=== PATIENT | female | born 1945 | race Caucasian/White ===

== ENCOUNTER 2024-12-28 16:40 | Inpatient (IN) | payer MEDICARE, BC, SELFPAY ==
[2024-12-28] VITALS (7 sets, daily range): BP systolic 143–173; BP diastolic 86–105; PULSE 73–88; RESP 16–18; TEMP 36.4–36.8; O2SAT 96–98; BMI 22.9; BMI 25.3
[2024-12-28 17:23] LABS: Appearance Urine Clear (Clear); Bilirubin Urine Negative (Negative); Blood Urine Trace-intact (Negative); Color Urine Yellow (Yellow); Glucose Urine Negative (Negative); Ketones Urine Negative (Negative); Leukocyte Esterase Urine Negative (Negative); Nitrite Urine Negative (Negative); Protein Urine Negative (Negative); Urobilinogen Urine 0.2 (0.2-1.0)
--- NOTE | 2024-12-28 17:32 | ED_ITS ---
HPI - Chest Pain General Date Seen: 12/28/24 Chief Complaint: Hypertension Stated Complaint: BP 195/121 Time Seen by Provider: 12/28/24 17:24 History of Present Illness HPI narrative: 50-year-old female who is a resident at an assisted living. He this morning at 10:00 a.m. she noted feeling headache, dizzy, lightheaded,. She is also weaker than normal today and normally walks with a walker but today is requiring wheelchair She has no previous records in the [place] system does have records through [facility]. She has a past medical history including hypertension, right heart enlargement, or atrial septal deflect with surgery in 2010, carotid pseudoaneurysm, hypothyroidism, osteoporosis, osteoarthritis, the for her anxiety. Medication list include: Lisinopril 10 mg daily metoprolol 25 mg b.i.d. The Remeron Vitamin B Levothyroxine Fluticasone nasal spray Fish oil Benadryl/acetaminophen Diclofenac gel cinnamon Cranberry Calcium carbonate aspirin 81 mg Fosamax Tylenol She presents to the ER today with her daughter. They report that this morning she just started to feel unwell. She became a little bit dizzy, a little bit nauseous a little bit unsteady. She describes her dizziness is somewhat spinning but not exactly vertigo. Along with this she developed a generalized headache. No double vision. No slurred speech. No focal numbness or weakness in her arms or legs. She did not have any chest pain. No palpitations. No abdominal pain. She was nauseous but did not vomit. No diarrhea. Symptoms persisted through the morning. This afternoon she did have 1 episode of small volume emesis (nonbloody) and 1 episode of watery diarrhea. No new abdominal pain. She would just continue to feel somewhat off balance and dizzy. She took some Tylenol for headache which made it somewhat better. Her care providers at her assisted-living measure her blood pressure and it was quite elevated in the range of 190-200/120. They were sent to the ER today after a phone call with the alignment triage nurse Related Data Home Medications ?Medication ?Instructions ?Recorded ?Confirmed alendronate 35 mg tablet 35 mg PO QWEEK 12/28/24 12/28/24 aspirin 81 mg tablet,delayed 81 mg PO DAILY 12/28/24 12/28/24 release (Adult Low Dose Aspirin) fluticasone furoate 50 1 inh inhalation PRN 12/28/24 mcg/actuation blister powder for inhalation levothyroxine 88 mcg tablet 88 mcg PO DAILY 12/28/24 12/28/24 lisinopril 10 mg tablet 10 mg PO DAILY 12/28/24 12/28/24 metoprolol tartrate 25 mg tablet 25 mg PO BID 12/28/24 12/28/24 mirtazapine 15 mg tablet 15 mg PO QHS 12/28/24 12/28/24 Allergies Allergy/AdvReac Type Severity Reaction Status Date / Time nitrofurantoin (From Allergy Intermediate Hives Verified 12/28/24 17:00 Macrobid) [facility] Medical History (Updated 12/28/24 @ 21:04 by Jairo Canales MD) Right ventricular enlargement ?I51.7 - Cardiomegaly (ICD-10) Coronary artery disease ?I25.10 - Atherosclerotic heart disease of [place] coronary artery without angina pectoris (ICD-10) Hydrocephalus ?G91.9 - Hydrocephalus, unspecified (ICD-10) 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 - Aneurysm of carotid artery (ICD-10) Osteoarthritis ?M19.90 - Unspecified osteoarthritis, unspecified site (ICD-10) Osteoporosis ?M81.0 - Age-related osteoporosis without current pathological fracture (ICD- 10) Insomnia ?G47.00 - Insomnia, unspecified (ICD-10) Anxiety ?F41.9 - Anxiety disorder, unspecified (ICD-10) Hypothyroidism ?E03.9 - Hypothyroidism, unspecified (ICD-10) Hypertension ?I10 - Essential (primary) hypertension (ICD-10) Surgical History (Updated 12/28/24 @ 20:54 by Jairo Canales MD) H/O abdominal hysterectomy ?Z90.710 - Acquired absence of both cervix and uterus (ICD-10) S/P device closure of atrial septal defect ?Z87.74 - Personal history of (corrected) congenital malformations of heart and circulatory system (ICD-10) Social History (Updated 12/28/24 @ 21:07 by Jairo Canales MD) What is your current living situation?: I presently have a place to live Problems where you live: no known problems Problems where you live details: no known problems In the past 12 months, utilities in danger of being shut off: no In past 12 months, lack of transportation kept you from medical appts, meetings, work, or getting things needed for daily living: no In the past 12 mos, have been you worried that your food would run out before you had money to buy more?: never true In the past 12 mos, the food you bought just didn't last and you didn't have money to buy more?: never true Smoking Status: Former smoker What tobacco products do you use: cigarettes Years smoked: 1 Smoking quit date/years: >15 years ago Second hand tobacco smoke exposure: No How often do you have a drink containing alcohol: 4 or more times a week Alcohol type: wine Alcohol type details: pt reports half a glass of white wine with dinner How many standard drinks containing alcohol do you have on a typical day: 1 or 2 How often do you have six or more drinks on one occasion: Never AUDIT-C Alcohol total score: 4 Non-prescribed substance use: denies use Caffeine: No How often does anyone, including family, friends and others, physically hurt you : never How often does anyone, including family, friends and others, insult or talk down to you: never How often does anyone, including family, friends and others, threaten you with harm: never How often does anyone, including family, friends and others, scream or curse at you: never service: No Exam Narrative Exam Narrative: Constitutional: Appears well-developed and well-nourished. Alert. Conversant. Non toxic. Very polite HENT: Head: Atraumatic. Nose: Nose normal. Mouth/Throat: Oral mucosa is clear and moist. no trismus. Pharynx normal. Tonsils symmetric. No tonsillar enlargement, erythema, or exudate. Eyes: Conjunctivae normal. EOM normal. Pupils equal, round, and reactive to light. No scleral icterus. No nystagmus Neck: Normal range of motion. Neck supple. No tracheal deviation present. No JVD Cardiovascular: Normal rate, regular rhythm. No gallop. No friction rub. No murmur heard. Symmetric radial artery pulses Pulmonary/Chest: Effort normal. No stridor. No respiratory distress. No wheezes. No rales. No rhonchi . No tenderness. Abdominal: Soft. Bowel sounds normal. No distension. No mass. No tenderness. No rebound. No guarding. No CVA tenderness. No pulsatile mass Musculoskeletal: RUE: Normal range of motion. No tenderness. No deformity LUE: Normal range of motion. No tenderness. No deformity RLE: Normal range of motion. No edema. No tenderness. No deformity LLE: Normal range of motion. No edema. No tenderness. No deformity Neurological: Mental status normal. Attention normal. Alert and oriented x3. GCS 15. Memory normal. Speech fluent. Cognition normal. Cranial Nerves intact II-XII except I did not formally test gag or visual acuity. EOMI. Palate elevates symmetrically and tongue protrudes in the midline. Strength: 5/5 trapezius on the right and left 5/5 deltoid on the right and left 5/5 biceps on the right and left 5/5 triceps on the right and left 5/5 wheel inspector on the right and left 5/5 thumb opposition on the right and left 5/5 finger abduction on the right and left 5/5 hip flexors (L3) on the right and left 5/5 quadriceps (L4) on the right and left 5/5 tibialis anterior on the right and left 5/5 EHL (L5) on the right and left 5/5 gastrocnemius (S1) on the right and left 5/5 hamstring on the right and left Sensation intact to light touch in both upper extremities (C4-T1) Sensation intact to light touch in Both lower extremities (L4-S1). Finger to nose and coordination normal. She is able to get out of bed and stand the bedside with assistance of me for balance. She is able take 1 or 2 steps. No footdrop. No focal numbness or weakness. She just feeling very weak and a little bit unsteady. She is not able to pass a ambulation trial. she is too unsteady to attempt Romberg. Skin: Skin is warm and dry. No rash noted. No pallor. Normal capillary refill. Psychiatric: Normal mood. Normal affect. Const Vital Signs, click to edit/add: Vital Signs - 24 hr 12/28/24 17:00 12/28/24 17:43 12/28/24 18:00 Temperature 98 F Pulse Rate [Pulse Oximeter] 88 73 Respiratory Rate 18 16 Blood Pressure [Right Upper Arm] 173/97 H 161/105 H 146/88 H Pulse Oximetry 97 96 Oxygen Delivery Method Room Air Room Air 12/28/24 19:00 Temperature Pulse Rate [Pulse Oximeter] 78 Respiratory Rate 18 Blood Pressure [Right Upper Arm] 143/86 H Pulse Oximetry 96 Oxygen Delivery Method Room Air Course Course ED Course: Recheck-blood pressure is come down to about 143/82 without pharmacologic treatment. She has received Zofran for nausea and that is improved. Tylenol for headache and that is improved. She continues to feel a little bit unsteady and weak. Still not really able to ambulate. She was able to ride in a wheelchair to the bathroom and transfer from the wheelchair to the toilet and back. She was not able to ambulate in the hallway. Vital Signs Vital signs: Initial Vital Signs Temperature 98 F 12/28/24 17:00 Temperature Source Temporal Artery Scan 12/28/24 17:00 Pulse Rate 88 12/28/24 17:00 Respiratory Rate 18 12/28/24 17:00 Blood Pressure 173/97 H 12/28/24 17:00 Blood Pressure Mean 122 H 12/28/24 17:00 Pulse Oximetry 97 12/28/24 17:00 Oxygen Delivery Method Room Air 12/28/24 17:00 Vital Signs Temperature 98 F 12/28/24 17:00 Pulse Rate 88 12/28/24 17:00 Respiratory Rate 18 12/28/24 17:00 Blood Pressure 173/97 H 12/28/24 17:00 Pulse Oximetry 97 12/28/24 17:00 Oxygen Delivery Method Room Air 12/28/24 17:00 Temperature 97.5 F L 12/28/24 22:30 Pulse Rate 74 12/28/24 22:52 Respiratory Rate 16 12/28/24 22:30 Blood Pressure 146/91 H 12/28/24 22:30 Pulse Oximetry 98 12/28/24 22:30 Oxygen Delivery Method Room Air 12/28/24 22:30 Medications Administered Medications: Generic Name Dose Route Start Last Admin Trade Name Freq PRN Reason Stop Dose Admin Acetaminophen 650 mg 12/28/24 20:32 12/28/24 22:35 Acetaminophen 325 Mg Tablet PO 650 mg Q4H PRN Administration Metoprolol Tartrate 25 mg 12/28/24 21:00 12/28/24 22:09 Metoprolol Tartrate 25 Mg Tablet PO Not Given BID ROSAURA Mirtazapine 15 mg 12/28/24 20:45 12/28/24 22:13 Mirtazapine 15 Mg Tablet PO 15 mg HS ROSAURA Administration Sodium Chloride 5 ml 12/28/24 21:00 12/28/24 22:14 Sodium Chloride 0.9 % (Flush) 10 Ml Syringe IVF 5 ml BID ROSAURA Administration Discontinued Medications Generic Name Dose Route Start Last Admin Trade Name Tony PRN Reason Stop Dose Admin Sodium Chloride 1,000 mls @ 1,000 mls/hr 12/28/24 18:00 12/28/24 20:10 0.9 % Sodium Chloride 1000 Ml IV 12/28/24 18:59 Infused .Q1H ROSAURA Infusion Metoprolol Tartrate 25 mg 12/28/24 19:53 12/28/24 20:13 Metoprolol Tartrate 25 Mg Tablet PO 12/28/24 19:54 25 mg ONCE ONE Administration Ondansetron HCl 4 mg 12/28/24 17:56 12/28/24 19:33 Ondansetron Odt 4 Mg Tab PO 12/28/24 17:57 Not Given ONCE ONE Ondansetron HCl 4 mg 12/28/24 19:23 12/28/24 19:32 Ondansetron 2 Mg/Ml Inj IVP 12/28/24 19:24 4 mg ONCE ONE Administration MDM - Chest Pain MDM Narrative Medical decision making narrative: This is a very pleasant 79-year-old female brought to the ER today from her assisted living by her daughter with concern for dizziness, nausea, headache, 1 episode of vomiting and 1 episode of diarrhea, as well as markedly elevated blood pressure readings at home. In terms of her blood pressure she does have a known history of hypertension and is on metoprolol and lisinopril. She has never had similar readings as today. Blood pressure actually came down quite a bit while she was here in the ER. At this point no clear evidence for an acute hypertensive emergency requiring immediate blood pressure management. We will give her her normal home meds this evening. Workup in the ER so far is reassuring. No evidence for CHF, acute coronary syndrome, myocardial ischemia, or acute renal failure. Head CT scan is negative for any intracranial hemorrhage. With her somewhat nonspecific but fairly persistent dizziness, I am concerned about potentially a posterior fossa ischemic stroke. Sensitivity of noncontrast head CT would be fairly low for that. Patient will need MRI. MRI is not available here in the ER on the weekend. Therefore we will admit her to the hospital for plans for MRI tomorrow. With potential for a subacute acute ischemic stroke happening, we do not want her blood pressure run too low. Therefore we will administer metoprolol here tonight but hold off on lisinopril. She is not anemic. Sodium and electrolytes are normal. Kidney function normal. Blood sugar normal. Urinalysis shows hematuria. Abdomen/pelvis CT is obtained and is negative for any sign of kidney stone or other clear explanation for hematuria. CT also negative for other intra-abdominal pathology such as obstruction, perforation, free air, colitis, diverticulitis. Discussed the hematuria with the patient and her daughter in the will follow-up outpatient with her PCP for re-evaluation. Discussed the patient's presenting dizziness and other symptoms with our hospitalist, Dr. Canales. We discussed workup so far. He agrees with plans to admit for further workup. Lab Data Labs: Lab Results 12/28/24 12/28/24 12/28/24 Range/Units 17:17 18:45 19:55 WBC 4.55 (4.50-11.00) K/uL RBC 3.97 L (4.00-5.20) m/uL Hgb 11.0 L (12.0-16.0) gm/dL Hct 33.6 (33.0-51.0) % MCV 85 (80-100) fL MCH 28 (26-34) pg MCHC 33 (32-36) gm/dL RDW Coeff of [place] 14.8 (11.5-15.5) % Plt Count 302 (140-440) K/uL Neut % (Auto) 67.3 (42.0-72.0) % Lymph % (Auto) 23.5 (20-44) % [place] % (Auto) 7.5 (0.0-11.0) % Eos % (Auto) 1.3 (0.0-7.0) % Baso % (Auto) 0.4 (0.0-3.0) % Neut # (Auto) 3.06 (1.7-7.0) K/uL Lymph # (Auto) 1.07 (0.90-2.90) K/uL [place] # (Auto) 0.30 (0.00-0.90) K/UL Eos # (Auto) 0.06 (0.00-0.50) K/uL Baso # (Auto) 0.02 (0.00-0.30) K/uL Abs Immat Gran (auto) 0.00 (0.00-0.30) K/uL Imm/Tot Granulo (auto) 0.0 % Sodium 128 L (135-149) mmol/L Potassium 4.1 (3.6-5.1) mmol/L Chloride 96 (96-114) mmol/L Carbon Dioxide 22 (20-32) mmol/L Anion Gap 10 (7-15) mEq/L BUN 9 (7-30) mg/dL Creatinine 0.6 (0.5-1.5) mg/dL Estimated Creat Clear 35.49 Estimated GFR 91 ml/min Glucose 109 (60-115) mg/dL Lactate 1.0 (0.5-1.9) mmol/L Calcium 9.0 (8.4-10.6) mg/dL Troponin I < 0.01 L (0.01-0.04) ng/mL NT-Pro-B Natriuret Pep 259 pg/mL TSH 0.627 (0.270-4.20) uIU/mL Urine Color Yellow (Yellow) Urine Appearance Clear (Clear) Urine pH 7.0 (5.0-8.5) Ur Specific [place] 1.020 (1.000-1.030) Urine Protein Negative (Negative) Urine Glucose (UA) Negative (Negative) Urine Ketones Negative (Negative) Urine Blood Trace-intact A (Negative) Urine Nitrite Negative (Negative) Urine Bilirubin Negative (Negative) Urine Urobilinogen 0.2 (0.2-1.0) Ur Leukocyte Esterase Negative (Negative) Urine RBC 10-25 A (0-2) Urine WBC 0-2 (0-5) Ur Squamous Epith Cells None (None-Few) Urine Bacteria None (None) SARS-CoV-2 (PCR) Negative SARS-CoV-2 (Negative) Influenza Type A (PCR) Negative PCR FLU A (Negative) Influenza Type B (PCR) Negative PCR FLU B (Negative) RSV (PCR) Negative PCR RSV (Negative) Imaging Data CT scan - abdomen: Attestation: I have reviewed the pertinent imaging results. Radiologist's impression: IMPRESSION: No acute intra-abdominal/pelvic abnormality, including renal stones or obstructive uropathy. Colonic diverticulosis without diverticulitis. CT scan - head: Attestation: I have reviewed the pertinent imaging results. Radiologist's impression: IMPRESSION: 1. No acute intracranial abnormality. 2. Moderate generalized cerebral volume loss. Chronic deep white matter small vessel ischemic changes Chest x-ray: Attestation: I have reviewed the pertinent imaging results. Radiologist's impression: IMPRESSION: No acute or significant findings. ECG Data Attestation: I personally reviewed and interpreted this ECG as follows: Interpretation: Normal sinus rhythm with PACs Rate: 78 CT: 170 QRS axis: Low voltage QRS. Normal axis. No pathologic Q-waves. ST segment/T wave: No ST segment elevation or depression QTc: 433 Discharge Plan Discharge Clinical Impression: Dizziness, Nausea, High blood pressure Patient Disposition: Admitted As Observation
[2024-12-28 17:34] LABS: WBC Urine 0-2 (0-5)
--- NOTE | 2024-12-28 17:56 | CRLHL7_ITS ---
For Patients: As a result of the Century Cures Act, medical imaging exams and procedure reports are released immediately into your electronic medical record. You may view this report before your referring provider. If you have questions, please contact your health care provider. INDICATION: Dizziness, hypertension TECHNIQUE: Chest 2 views. COMPARISON: None. FINDINGS: Cardiovascular and mediastinum: Heart size and vasculature are normal in caliber and appearance. Probable atrial septal occluded device. Lungs and pleural spaces: Lungs are clear. No sign of infiltrate or mass. No sign of pleural effusion. No pneumothorax. Bones and soft tissues: Decreased osseous mineralization. Excessive kyphotic curvature. No significant findings. IMPRESSION: No acute or significant findings. Dictated by Marty Buck MD @ 12/28/2024 6:31:28 PM (Electronically Signed)
--- NOTE | 2024-12-28 17:56 | CRLHL7_ITS ---
For Patients: As a result of the Century Cures Act, medical imaging exams and procedure reports are released immediately into your electronic medical record. You may view this report before your referring provider. If you have questions, please contact your health care provider. INDICATION: Headache and nausea. COMPARISON: None. TECHNIQUE: Noncontrast CT head. FINDINGS: Moderate generalized volume loss. Patchy low-attenuation change within the white matter consistent with chronic deep white matter small vessel ischemic changes. No acute intracranial hemorrhage, acute infarct, mass effect, or fracture. Compensatory dilatation ventricular system. Normal calvarium and skull base. Visualized paranasal sinuses mastoid air cells are clear. Normal orbits bilaterally. IMPRESSION: 1. No acute intracranial abnormality. 2. Moderate generalized cerebral volume loss. Chronic deep white matter small vessel ischemic changes Please note that all CT scans at this facility use dose modulation, iterative reconstruction, and/or weight-based dosing when appropriate to reduce radiation dose to as low as reasonably achievable. Dictated by David Garner MD @ 12/28/2024 6:27:38 PM (Electronically Signed)
--- NOTE | 2024-12-28 17:58 | CRLHL7_ITS ---
For Patients: As a result of the Century Cures Act, medical imaging exams and procedure reports are released immediately into your electronic medical record. You may view this report before your referring provider. If you have questions, please contact your health care provider. INDICATION: Dizziness, hematuria. TECHNIQUE: CT abdomen and pelvis without contrast. COMPARISON: None. FINDINGS: Lower chest: Scattered atelectasis. Liver: Normal in size and attenuation. No suspicious masses. Gallbladder and bile ducts: No stones or inflammation. No biliary dilatation. Pancreas: Unremarkable. No mass or inflammation. Spleen: Normal in size. No masses. Adrenal glands: Normal in size. No nodules. Kidneys: Bilateral extrarenal pelvis. Normal in size. No suspicious masses, stones, or hydronephrosis. GI tract: Colonic diverticulosis without diverticulitis.. Normal in caliber. No sign of mass or inflammation. Normal appendix. Vasculature: Aortoiliac arterial calcifications. Abdominal aorta is normal in caliber. Lymph nodes: No lymphadenopathy. Peritoneum/Abdominal Wall: Unremarkable. No sign of mass or infiltration. No free air or significant free fluid. Pelvis: Hysterectomy. No pelvic masses. Bones: Unremarkable for age. IMPRESSION: No acute intra-abdominal/pelvic abnormality, including renal stones or obstructive uropathy. Colonic diverticulosis without diverticulitis. Please note that all CT scans at this facility use dose modulation, iterative reconstruction, and/or weight-based dosing when appropriate to reduce radiation dose to as low as reasonably achievable. Dictated by Marty Buck MD @ 12/28/2024 6:30:00 PM (Electronically Signed)
[2024-12-28] MEDS: 0.9 % SODIUM CHLORIDE 1000 ml 1,000 ML IV (18:44)
[2024-12-28 18:54] LABS: Basophils Absolute Auto 0.02 K/uL (0.00-0.30); Basophils Percent Auto 0.4 % (0.0-3.0); Eosinophils Absolute Auto 0.06 K/uL (0.00-0.50); Eosinophils Percent Auto 1.3 % (0.0-7.0); Hematocrit 33.6 % (33.0-51.0); Lymphocytes Absolute Auto 1.07 K/uL (0.90-2.90); Lymphocytes Percent Auto 23.5 % (20-44); Mean Corpuscular HGB Conc 33 gm/dL (32-36); Mean Corpuscular Hemoglobin 28 pg (26-34); Mean Corpuscular Volume 85 fL (80-100); Monocytes Percent Auto 7.5 % (0.0-11.0); Neutrophils Absolute Auto 3.06 K/uL (1.7-7.0); Neutrophils Percent Auto 67.3 % (42.0-72.0); Platelet Count* 302 K/uL (140-440); RDW Coefficient of Variation % 14.8 % (11.5-15.5); Red Blood Count 3.97 m/uL (4.00-5.20); Slide Review Reflex No; White Blood Count* 4.55 K/uL (4.50-11.00)
[2024-12-28 19:09] LABS: Chloride* 96 mmol/L (96-114)
[2024-12-28 19:10] LABS: Potassium* 4.1 mmol/L (3.6-5.1); Sodium* 128 mmol/L (135-149)
[2024-12-28 19:12] LABS: Creatinine* 0.6 mg/dL (0.5-1.5); Est. Creatinine Clearance* 35.49; Estimated Glomerular Filt Rate 91 ml/min
[2024-12-28 19:13] LABS: Anion Gap 10 mEq/L (7-15); Blood Urea Nitrogen* 9 mg/dL (7-30); Carbon Dioxide* 22 mmol/L (20-32); Glucose* 109 mg/dL (60-115)
--- OUTSIDE RECORDS SUMMARY | 2024-12-28 19:19 | XMS_ITS | Clinical Summary ---
Author Organization [facility] Address [address] [place] [address]. [place] [address] Care Team Providers Care Online Marketing Analyst Name Role Phone Zee Bentley MD Primary Care Provider + Allergies Active Allergy Reactions Criticality Noted Date Comments Nitrofurantoin Low 05/30/2021 Other reaction(s): Muscle Weakness Sulfamethoxazole-Trimethoprim 2015 Medications aspirin 325 MG tablet Take 325 mg by mouth as needed for moderate pain Active aspirin 81 MG EC tablet Take 81 mg by mouth Take two to three times a week 2 Active levothyroxine (SYNTHROID/LEVO THROID) 88 MCG tablet Take 88 mcg by mouth daily Active metoprolol tartrate (LOPRESSOR) 25 MG tablet Take 25 mg by mouth 2 times daily Active fluticasone (FLONASE) 50 MCG/ACT nasal spray [place] 1 spray into both nostrils 2 times daily as needed for rhinitis or allergies Active ibuprofen (ADVIL/MOTRIN) 200 MG tablet Take 200 mg by mouth daily as needed for mild pain Active Cyanocobalamin (VITAMIN B 12 PO) Take 1 tablet by mouth daily Active CALCIUM PO Take 1,200 mg by mouth daily Active [place]-3 Fatty Acids (OMEGA 3 PO) Take 1 capsule by mouth daily Active Cholecalciferol (VITAMIN D PO) Take 1 tablet by mouth daily Active CINNAMON PO Take 1 tablet by mouth daily Active CARBOXYMETHYLCE LLULOSE SODIUM OP Place 1 drop into both eyes as needed Active meclizine (ANTIVERT) 25 MG tabletIndicatio ns:Vertigo Take 1 tablet (25 mg) by mouth every 6 hours as needed for dizziness 15 tablet 9 Active Active Problems Problem Noted Date Diagnosed Date PVC (premature ventricular contraction) 07/08/20 21 Tachycardia, unspecified 07/08/2021 Hydrocephalus 05/28/2021 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 left sided. Patient has been evaluated from surgery. No surgical intervention at this time. Serial MRA have showed no change in size. Repeat planned for 2023. Vertigo 06/02/2019 Colon polyps 11/25/2015 Overview (07/08/2021): 2 on colonoscopy 11/2015; repeat in 2020 ASD (atrial septal defect) 11/28/2011 Right heart enlargement 06/07/2011 HTN (hypertension) 04/26/2011 Hypothyroidism 04/26/2011 Osteoporosis 04/26/2011 Overview (07/08/2021): Repeat in 2014; request scan of wrist also at that time. Family History Medical History Relation Comments Colon Cancer Father Relation Status Comments Father Social History Tobacco Use Types Packs/Day Years Used Date Smoking Tobacco: Former Cigarettes Q uit: 11/12/1994 Alcohol Use Standard Drinks/Week Comments Yes 0 (1 standard drink = 0.6 oz pur e alcohol) occasional Adolescent Education Answer Date Record ed Getting School Help Needed Not on file 07/27 Comments No Sex and Gender Information Value Date Recorded Sex Assigned at Not on file Legal Sex Female 5:16 AM [employer] Gender Identity Not on file Sexual Orientation Not on file Last Filed Vital Signs Vital Sign Reading Time Taken Comments Blood Pressure 144/81 07/08/2021 6:15 PM CDT R a rm Pulse 79 07/08/2021 6:15 PM CDT Temperature 36.2 C (97.2 F) 07/08/2021 3:01 PM CDT Respiratory Rate 16 07/08/2021 6:29 PM CDT Oxygen Saturation 95% 07/08/2021 6:15 PM CDT Inhaled Oxygen Concentration - - Weight 59 kg (130 lb) 07/08/2021 3:01 PM CDT Height 158.8 cm (5' 2.5) 06/02/2019 11:10 PM CD T Body Mass Index 23.4 06/02/2019 11:10 PM CDT Plan of Treatment Health Maintenance Due Date Last Done Comments ANNUAL REVIEW OF HM ORDERS 1945 DEXA 1945 LIPID 1984 FALL RISK ASSESSMENT 2009 RSV VACCINE (1 - 1-dose 75+ series) 2019 BMP 07/08/2022 07/08/2021, 05/07, 10/29/2011 TSH W/FREE T4 REFLEX 07/08/2022 07/08/2021 MEDICARE ANNUAL WELLNESS VISIT 12/30/2022 12/30/2021, 12/29/2020 COVID-19 Vaccine ( season) 2024 07/31/2022, 02/16/2022, 08/10/2021, Additional history exists INFLUENZA VACCINE (#1) 2024 , 08/02/2021, 07/02/2020, Additional history exists GLUCOSE 07/08/2024 07/08/2021, 05/07, 06/02/2019, Additional history exists PHQ-2 (once per calendar year) 2024 ADVANCE CARE PLANNING 09/27/2027 09/27/2022 DTAP/TDAP/TD IMMUNIZATION (3 - Td or Tdap) 06/06/2031 06/06/2021, 06/02/2011 Pneumococcal Vaccine: 50+ Years Completed 09/08/2015, 06/02/2011 COLONOSCOPY Discontinued 11/16/2015, 11/16/2015 COLORECTAL CANCER SCREENING Discontinued ZOSTER IMMUNIZATION Completed 07/29/2018, 05/14/2018, 06/02/2011 MAMMO SCREENING Discontinued 01/04/2022, 04/06, 04/11/2019 CT COLONOGRAPHY Discontinued FIT Discontinued FLEX SIG Discontinued HPV IMMUNIZATION Aged Out No longer e ligible based on patient's age to complete this topic MENINGITIS IMMUNIZATION Aged Out No l onger eligible based on patient's age to complete this topic sDNA (Cologuard) Discontinued Procedures Procedure Name Priority Date/Time Associated Diagnosis Comments TSH WITH FREE T4 REFLEX STAT 07/08/2021 4:19 PM CDT BASIC METABOLIC PANEL STAT 07/08/2021 4:19 PM CDT COLONOSCOPY Routine 11/16/2015 8:20 AM [employer] from Last 3 Months or Most Recently Relevant to Health Maintenance Results * TSH with free T4 reflex (07/08/2021 4:19 PM CDT) TSH 1.84 0.40 - 4.00 mU/L 07/08/2021 5:24 PM CDT [facility] Blood VENOUS LINE / Unknown Venipuncture / Unknown 07/08/2021 4:19 PM CDT 07/08/2021 4:22 PM CDT us Bridget Yates DO LAB - BLOOD ORDERABLES Final Res ult LABORATORY [facility] [address] Lab (1st floor, no room number) [place] [address], [facility] [phone] * (ABNORMAL) Basic metabolic panel (07/08/2021 4:19 PM CDT) Sodium 130(L) 133 - 144 mmol/L 07/08/2021 4:43 PM CDT [facility] Potassium 4.0 3.4 - 5.3 mmol/L 07/08/2021 4:43 PM CDT [facility] Chloride 97 94 - 109 mmol/L 07/08/2021 4:43 PM CDT [facility] Carbon Dioxide (CO2) 27 20 - 32 mmol/L 07/08/2021 4:43 PM CDT LABORATORY Anion Gap 6 3 - 14 mmol/L 07/08/2021 4:43 PM CDT [facility] Urea Nitrogen 13 7 - 30 mg/dL 07/08/2021 4:43 PM CDT [facility] Creatinine 0.71 0.52 - 1.04 mg/dL 07/08/2021 4:43 PM CDT LABORATORY Calcium 8.9 8.5 - 10.1 mg/dL 07/08/2021 4:43 PM CDT LABORATORY Glucose 98 70 - 99 mg/dL 07/08/2021 4:43 PM CDT LABORATORY GFR Estimate 82 >60 mL/min/1.7 3m2 07/08/2021 4:43 PM CDT LABORATORY Comment:As of May 15, 2021, eGFR is calculated by the CKD-EPI creatinine equation, without race adjustment. eGFR can be influenced by muscle mass, exercise, and diet. The reported eGFR is an estimation only and is only applicable if the renal function is stable. Blood VENOUS LINE / Unknown Venipuncture / Unknown 07/08/2021 4:19 PM CDT 07/08/2021 4:22 PM CDT Daniel Azar MD LAB - BLOOD ORDERABLES Final R esult [facility] [address] [facility] Lab (1st floor, no room number) [place] [address], [facility] [phone] * COLONOSCOPY (11/16/2015 8:20 AM [employer]) COLONOSCOPY [facility] Patient Name: Vicky Crum Procedure Date: 11/16/2015 8:20 AM Date of : 1945 Admit Type: Outpatient Age: 70 Gender: Female Attending MD: Carlos Burrows MD Instrument Name: [id number] Procedure: Colonoscopy Indications: Follow-up for history of adenomatous polyps in the colon Providers: Carlos Burrows MD, Jess Cronin RN (Nurse) Referring MD: Zee Bentley MD Medicines: Fentanyl 100 micrograms IV, Midazolam 1 mg IV Complications: No immediate complications. Procedure: Pre-Anesthesia Assessment: - Prior to the procedure, a History and Physical was performed, and patient medications and allergies were reviewed. The patient is competent. The risks and benefits of the procedure and the sedation options and risks were discussed with the patient. All questions were answered and informed consent was obtained. Patient identification and proposed procedure were verified by the physician and the nurse in the procedure room. Mental Status Examination: alert and oriented. Airway Examination: normal oropharyngeal airway and neck mobility and Mallampati Class II (the uvula but not tonsillar pillars visualized). Respiratory Examination: clear to auscultation. CV Examination: normal. Prophylactic Antibiotics: The patient does not require prophylactic antibiotics. Prior Anticoagulants: The patient has taken no previous anticoagulant or antiplatelet agents. ASA Grade Assessment: III - A patient with severe systemic disease. After reviewing the risks and benefits, the patient was deemed in satisfactory condition to undergo the procedure. The anesthesia plan was to use moderate sedation / analgesia (conscious sedation). Immediately prior to administration of medications, the patient was re-assessed for adequacy to receive sedatives. The heart rate, respiratory rate, oxygen saturations, blood pressure, adequacy of pulmonary ventilation, and response to care were monitored throughout the procedure. The physical status of the patient was re-assessed after the procedure. - Immediately prior to administration of medications, the patient was re-assessed for adequacy to receive sedatives. After obtaining informed consent, the colonoscope was passed under direct vision. Throughout the procedure, the patient's blood pressure, pulse, and oxygen saturations were monitored continuously. The [id number] was introduced through the anus and advanced to the cecum, identified by appendiceal orifice and ileocecal valve. The colonoscopy was performed without difficulty. The ileocecal valve, appendiceal orifice and rectum were photographed. The quality of the bowel preparation was excellent. Findings: The perianal and digital rectal examinations were normal. Two sessile polyps were found in the transverse colon and in the ascending colon. The polyps were 1 to 2 mm in size. These polyps were removed with a jumbo cold forceps. Resection and retrieval were complete. Estimated blood loss: none. The exam was otherwise without abnormality on direct and retroflexion views. Impression: - Two 1 to 2 mm polyps in the transverse colon and in the ascending colon. Resected and retrieved. - The examination was otherwise normal on direct and retroflexion views. Recommendation: - The patient will be observed post-procedure, until all discharge criteria are met. - Patient has a contact number available for emergencies. The signs and symptoms of potential delayed complications were discussed with the patient. Return to normal activities tomorrow. Written discharge instructions were provided to the patient. - Regular diet. - Await pathology results. - Return to primary care physician as previously scheduled. - Repeat colonoscopy in 5 years for adenoma surveillance. Procedure Code(s): --- Professional --- 65967, Colonoscopy, flexible, proximal to splenic flexure; with biopsy, single or multiple CPT copyright 2013 [employer]. All rights reserved. The codes documented in this report are preliminary and upon instrument repairer review may be revised to meet current compliance requirements. Carlos Burrows MD 11/16/2015 8:50 AM I was physically present for the entire viewing portion of the exam. Number of Addenda: 0 Note Initiated On: 11/16/2015 8:20 AM Procedure Date: 11/16/2015 8:20:28 AM Scope Withdrawal Time: 0 hours 8 minutes 8 seconds Total Procedure Duration: 0 hours 12 minutes 20 seconds Estimated Blood Loss: Scope In: 8:32:01 AM Scope Out: 8:44:21 AM RADIOLOGY RESULTS 11/16/2015 8:20 AM [employer] us Zee Bentley MD PROCEDURES Final Re sult RADIOLOGY RESULTS from Last 3 Months or Most Recently Relevant to Health Maintenance Insurance MEDICARE [facility] [employer] Advance Directives For more information, please contact: [phone] Documents on File Type Date Recorded 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 Advance Directives and Living Will 09/27/2022 Health Care Directiv e 04-03-2013 Advance Directives and Living Will 09/27/2022 superseded by 3 HCD; Health Care Directive 02-10-2013 * Full Code (Latest Code Status on File) Date Activated Date Inactivated Comments 06/03/2019 10:53 AM 07/08/2021 2:48 PM Question Answer Comments Code status determined by: Discussion with patie nt/legal decision maker * Full Code Date Activated Date Inactivated Comments 06/02/2019 10:59 PM 06/03/2019 10:53 AM Question Answer Comments Code status determined by: Discussion with jaden martin/legal decision maker Healthcare Agents on File Name Relationship Healthcare Agent Relationshi p Communication Lluvia Roy Daughter Health Care Agent Roland Pritchard Cousin First Alternate Health Care Agent Care Teams Online Marketing Analyst Relationship Specialty Start Date End Date Zee Bentley MD [facility] [id number] [place] [id number] PCP - General 10/29/11
--- OUTSIDE RECORDS SUMMARY | 2024-12-28 19:19 | XMS_ITS | Clinical Summary ---
Author Organization [employer] [facility] Address [address] [place] [address] Care Team Providers Care Learning Support Specialist Name Role Phone Zee Bentley MD Primary Care Provider + Allergies Active Allergy Reactions Criticality Noted Date Comments Celecoxib Intolerance-Can't Take Low 08/03/2021 [place] foggy and stomach upset and fatigue Nitrofurantoin Muscle Weakness Low 05/30/2021 Sulfamethoxazole-Trimetho prim Hives,Respiratory Distress Unknown 02/07/2011 Medications Fish Oil-[place]-3 Fatty Acids (OMEGA 3 FISH OIL) 684-1,200 mg capsule Take 1 capsule by mouth once daily. 0 06/02/20 11 Active vitamin B complex (B COMPLEX 1) tablet Take 1 tablet by mouth once daily. 0 06/02/20 11 Active ORDER - MEDICATION ORDER COMPOSER Citrical 1200mg ER, take one tablet daily 0 06/07/20 11 Active Cinnamon Bark (CINNAMON) 500 mg capsule Take 1 capsule by mouth once daily. 0 06/07/20 11 Active cholecalciferol (VITAMIN D) 1,000 unit tablet Take 1 tablet by mouth once daily. 0 06/07/20 11 Active Blood Pressure Test Kit-Large kit 09/29/20 20 Active Cranberry 400 mg capsuleIndications :Recurrent UTI Take 1 Capsule (400 mg) by mouth 2 times daily at 7 AM and Noon. 1 Capsule 07/07/20 21 Active calcium carbonate (Tums) 200 mg calcium (500 mg) chewable tablet Chew 1 Tablet (500 mg) by mouth 3 times daily with meals. 0 07/15/20 21 Active durable medical equipment (DME)Indications:P rimary osteoarthritis of right knee HKO anterior closure knee MD 1 Each 10/19/20 22 Active diclofenac topical (VOLTAREN) 1 % gel 11/08/19 23 Active acetaminophen SR (TYLENOL ARTHRITIS) 650 mg Extended-Release tabletIndications: Primary osteoarthritis of right knee TAKE TWO TABLETS (1300MG) BY MOUTH TWICE DAILY NEEDED 60 Tablet 97 08/16/20 23 Active lidocaine 4 % topical patchIndications:P rimary osteoarthritis of right knee,Multiple joint pain APPLY 1 PATCH ONTO THE RIGHT KNEE ONCE DAILY;& APPLY 1 PATCH ONTO PAINFUL AREA OF BACK ONCE DAILY NEEDED (ON FOR 12 HOURS, OFF FOR 12 HOURS) (PATIENT MAY SELF APPLY) 15 Patch 25 10/19/20 23 Active diphenhydrAMINE-ac etaminophen 25-500 mg (acetaminophen PM) 25-500 mg tabletIndications: Insomnia, idiopathic TAKE ONE TO TWO TABLETS BY MOUTH 1 HOUR PRIOR TO BEDTIME (MAY LEAVE IN ROOM TO SELF ADMINISTER) 60 Tablet 11 01/16/20 24 Active lisinopriL (PRINIVIL; ZESTRIL) 10 mg tabletIndications: HTN (hypertension) TAKE 1 TABLET BY MOUTH ONCE DAILY 90 Tablet 2 03/16/20 24 Active levothyroxine (SYNTHROID) 88 mcg tabletIndications: Hypothyroidism, unspecified type TAKE 1 TABLET BY MOUTH ONCE DAILY BEFORE BREAKFAST 90 Tablet 2 03/16/20 24 Active fluticasone (50 mcg per actuation) nasal solution (FLONASE)Indicatio ns:Nasal congestion INHALE 1 SPRAY IN EACH NOSTRIL TWICE DAILY NEEDED FOR RHINITIS (OK TO SELF ADMINISTER) 16 g 11 05/05/20 24 Active aspirin (ECOTRIN) 81 mg enteric coated tabletIndications: HTN (hypertension) TAKE 1 TABLET BY MOUTH ONCE DAILY 90 Tablet 1 05/08/20 24 Active mirtazapine (REMERON) 15 mg tabletIndications: Insomnia, idiopathic TAKE 1 TABLET BY MOUTH AT BEDTIME 90 Tablet 08/29/20 24 Active metoprolol tartrate (LOPRESSOR) 25 mg tabletIndications: HTN (hypertension) TAKE 1 TABLET BY MOUTH TWICE DAILY 180 Tablet 10/24/20 24 Active alendronate (FOSAMAX) 35 mg tabletIndications: Osteoporosis, unspecified osteoporosis type, unspecified pathological fracture presence Take 1 Tablet (35 mg) by mouth once a week in the morning. Take on empty stomach with full glass of water. Do not lie down for 1 hr. 8 Tablet 12/26/19 25 Active alendronate (FOSAMAX) 35 mg tabletIndications: Osteoporosis, unspecified osteoporosis type, unspecified pathological fracture presence Take 1 Tablet (35 mg) by mouth once a week in the morning. Take on empty stomach with full glass of water. Do not lie down for 1 hr. 12 Tablet 3 02/27/20 24 025 Discontin ued(*Avai lability/ Formulary change/Co st of medicatio n) Active Problems Problem Noted Date Diagnosed Date Insomnia, idiopathic 08/29/2023 Overview (10/03/2023): Trazodone 25 mg no help; 50 mg side effects. Doxepin-not effective. Melatonin not effective. Clonazepam am grogginess. 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 left sided. Patient has been evaluated from surgery. No surgical intervention at this time. Serial MRA have showed no change in size. Repeat planned for 2023. Colon polyps 11/25/2015 Overview (11/25/2015): 2 on colonoscopy 11/2015; repeat in 2020 Advance care planning 04/04/2013 Overview (10/19/2022): POLST done October 18, 2022. No CPR. Some intervention. No feeding tube. Assessment & Plan (04/04/2013 8:39 AM CDT): Advance Care Planning: Basic Interview Session Advance Care Planning discussion completed with Vicky Crum at the [facility] on 04/03/2013. Her primary care provider is Dr. Zee Bentley. Patient provided with: Health Care Directive CPR Fact Sheet Information regarding responsibilities of health care agent Booklet: Hard Choices for [place] People Goals and Values: Patient identified factors that may influence treatment preferences: Understanding of illness : Vicky states she is in good health, eats well, exercises and engages in life. She recently has gone through 7 weeks of therapy for her right shoulder (slight tear of rotater cuff). Therapy not that helpful and she eventually received cortisone injection with relief and now is back to receiving therapy. In September 2011 she had Amplatzer closure for her atrial spetal defect and is doing well. No problems. She is on medication for her thyroid and for blood pressure. Personal values and goals : Vicky values her good health and leads a healthy life style. Her hope is to remain independent and not be a burden to her family. Quality of life : She works out at the [employer] about 3 times or more a week, enjoys reading and belongs to a book club, watches some TV and also belongs to 2 knitting groups. She babysits her grandson and enjoys family activities. She has 2 children, son Darrel in [place] and daughter Lluvia in [place] and has 2 grandchildren. 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 She moved to [facility] from [place] in 2009. Worries and fears about health care : None. Present/past experiences related to illness or : Vicky lost her Pascual from cancer of lung and liver when he was 64. He passed just 4-5 months after diagnosis, dying at home with Hospice care. They had been 44 years. Her mother at age 89 in a fci where she resided for 6 years. She had history of stroke and tells me her mom refused to take medications. She eventually received Hospice care at the end of her life. Her [id number] at 89 dying in her sleep. Treatment Choices: If Vicky were suddenly injured and her chances of recovery were 5 out of 100, she WOULD NOT want ongoing life-prolonging treatments such as a ventilator/respirator, feeding tube, etc. Reviewed CPR fact sheet with Vicky. If she had a sudden event that caused her heart and breathing to stop she WOULD want CPR attempted unless my physician determines any one of the following: I have an incurable illness or injury and caitlyn dying; OR I have no reasonably chance of survival if my heart stops;OR I have little chance of long-term survival if my heart stops and the process of resuscitation would cause significant suffering OK with use of mechanical ventilation short duration to determine if she will be able to breathe on her own; no buttermaker continuous churn use. Attending physician to discuss situation with my health care agent, yonatan Teixeira. Documents Completed During Advance Care Planning Session: Health Care Agents identified. Primary health care agent is daughter Lluvia Roy; secondary health care agent is couprem Pritchard. Health Care Directive completed and scanned into medical record. Statement of Treatment Preferences for general illness completed and scanned into the medical record. Recommendations/Plan: Vicky was encouraged to continue advance care planning discussions and: ..Review, update or complete a new health care directive on a regular basis, at least every 5 years or whenever: There is a major family change, a divorce or You are diagnosed with a serious health condition Your health gets significantly worse, especially if you are unable to care for yourself or unable to live on your own Vicky to give a copy of her health care directive, statement of treatment preferences and information regarding the responsibilities of being a health care agent to her yonatan Teixeira and jennifer Watkins. Resources identified during advance care planning session that patient may benefit from are: Care Navigation for possible future resource needs. A pleasure to meet with Vicky today and fill out her health care directive. Call if there are questions. Interviewer: Floresita Houston RN CM Advance Care Planning [employer] [phone] e-mail: [email or web address] 04/03/2013 Preventative health care 08/01/2012 Overview (08/01/2012): Coronary CTA 08/29/2011 Nonobstructive coronary artery disease. Total calcium score 3.8; 50% for matched age and sex cohort No obstructive lesions identified ASD, s/p Amplatzer closure 11/28/2011 Right heart enlargement 06/07/2011 Osteoporosis 04/26/2011 Overview (03/17/2013): Repeat in 2014; request scan of wrist also at that time. HTN 04/26/2011 Hypothyroidism 04/26/2011 PVC (premature ventricular contraction) Tachycardia, unspecified Resolved Problems Problem Noted Date Diagnosed Date Resolved Date Depression, recurrent 10/19/20222021 Hydrocephalus 05/28/2021 10/19/2022 Overview (12/30/2021): Seen on head MRI. [place] evaluation did not feel she clinically had normal pressure hydrocephalus summer 2020 Ostium secundum type atrial septal defect 05/19/2011 11/28/2011 Overview (10/02/2011): -Echocardiogram 05/04/2011 Secundum type atrial septal defect, 1.2 x 1.3 cm Mild RVE Mild KONRAD EF 68% -Cardiac MRI 08/23/2011 Atrial septal aneurysm with prominent left to right shunt across ASD QP:QS ratio 2:1 Prominent RVE with normal systolic function Normal pulmonary venous drainage -ABIMAEL 08/23/2011 Large secundum ASD measuring 1.9 cm with large left to rught shunt Pulmonary veins drain normally into atrium Moderately to severely dilated and mildly hypokinetic right ventricle Healed perimembranous VSD with aneurysmal deformation -Coronary CTA 08/29/2011 Large secundum type ASD, maximum dimension 2.43 cm Severe KONRAD Mild to moderate RVE No clear evidence for perimembranous ventricular septal defect No contrast flow seen from [id number] MVP (mitral valve prolapse) 12/01/2010 05/19/2011 Palpitations 08/01/2012 Encounters Date Type Department Care Team Description 12/28/2024 Nurse Triage [facility] [id number] [place] [id number] Zee Bentley MD Hypertension 12/25/[address] [address] Zee Bentley MD Refill Request (Alendronate) 10/20/[address] [address] Zee Bentley MD Refill Request (Metoprolol Tartrate) from Last 3 Months Immunizations Name Administration Dates Next Due COVID-19 vaccine ([employer] NTech 30mcg/0.3mL) 12YO+ BIVALENT CLAIRE ALMARAZ 07/31/2022 COVID-19 vaccine ([employer] NTech 30mcg/0.3mL) CLAIRE ALMARAZ 08/10/2021,01/05/2021,12/15/2020 Influenza A (H1N1), Inactivated 11/01/2009 Influenza, High-dose Inactivated 019,08/05/2018,06/13/2017,07/19,07/20/2015,07/04/2014 Influenza, High-dose Quadriv alent Inactivated 08/09/2023,08/07/2022,07/02/2020 Influenza, IIV3 (Age >=3 years) 08/25/2013,07/09 Influenza, IIV4 (Age 6-35 Mos) 07/11/2018 Influenza, Inactivated AIIV4 (Age 65+ Years) Preserv Free 08/02/2021 Influenza, Inactivated IIV3 (Age 65+ Years) Preserv Free 07/02/2020,07/02/2020,07/09/2019,11/15 Pneumococcal Poly,23-Valent (Pneumovax) 06/02/2011 Pneumococcal conj 13-Valent (Prevnar 13) 09/08/2015 RSV, Bivalent Vaccine Recons tituted (Abrysvo 120MCG/0.5mL) 12/05/2023 Tdap 06/06/2021,06/02/2011 Zoster (Shingrix-RZV, recombinant) 07/29/2018, Zoster (Zostavax-ZVL, live) 06/02/2011 Family History Medical History Relation Name Comments Good Health Daughter Cancer-colon Father Cancer-colon Maternal Grandfather Cancer-colon Paternal Grandfather Alcohol/Drug Son Psychiatric illness Son Relation Name Status Comments Daughter Alive Father Maternal Grandfather Mother Paternal Grandfather Son Social History Tobacco Use Types Packs/Day Years Used Date Smoking Tobacco: Former Cigarettes Q uit: 10/05/1995 Smokeless Tobacco: Never Tobacco Cessation:Counseling Given: Yes Alcohol Use Standard Drinks/Week Comments Not Currently 0 (1 standard drink = 0.6 oz pur e alcohol) None anymore. PHQ-2 Answer Date Recorded PHQ-2 TOTAL SCORE 0 01/04/2024 Social Connections Answer Date Recorded Frequency of Communication with Friends and Fami ly 0 03/31/2022 Financial Resource Strain Answer Date R ecorded Difficulty of Paying Living Expenses 3 03/31/2022 Difficulty of Paying Living Expenses Not on file 03/31/2022 Food Insecurity Answer Date Recorded Worried About Running Out of Food in the Last Ye ar 1 03/31/2022 Transportation Needs Answer Date Record ed Lack of Transportation (Medical) 2 01/01/2023 Housing Stability Answer Date Recorded Unable to Pay for Housing in the Last Year 1 03/31/2022 Comments No Sex and Gender Information Value Date Recorded Sex Assigned at Not on file Legal Sex Female 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 Gender Identity Not on file Sexual Orientation Not on file Obstetrics History Para Term AB IAB SAB Ectopic Multiple Livin g Live Births 2 2 2 2 Date Outcome GA Total Labor Labor/2nd/3rd Weight Sex Type Anes PTL Delores A1 A5 Name Clin Term Term Last Filed Vital Signs Vital Sign Reading Time Taken Comments Blood Pressure 130/70 01/04/2024 2:08 PM RPG PROGRAMMER ANALYST Pulse 84 01/04/2024 2:08 PM RPG PROGRAMMER ANALYST Temperature 37.1 C (98.7 F) 09/04/2022 2:19 PM CDT Respiratory Rate 16 06/09/2019 2:24 PM CDT Oxygen Saturation 98% 06/02/2019 4:49 PM CDT Inhaled Oxygen Concentration - - Weight 58.3 kg (128 lb 9.6 oz) 01/04/2024 2:08 P M RPG PROGRAMMER ANALYST Height 156.2 cm (5' 1.5) 01/04/2024 2:08 PM RPG PROGRAMMER ANALYST Body Mass Index 23.91 01/04/2024 2:08 PM RPG PROGRAMMER ANALYST Plan of Treatment Upcoming Encounters Date Type Department Care Team (Late st Contact Info) Description 01/14/2025 2:00 PM CDT Office Visit [facility] [address] [place] [address] [place] [id number] [place] [address] Health Maintenance Due Date Last Done Comments COVID-19 vaccine series ( season) 2024 08/09/2023, 07/31/2022, 02/16/2022, Additional history exists Influenza for age 65+ 07/06/2024 08/09/2023 , 08/07/2022, 08/02/2021, Additional history exists BMI (ht and wt on same day) for age 18+ 01/03/2025 01/04/2024, 09/20/2023, 10/18/2022, Additional history exists Medicare Wellness for age 65+ 01/04/2025, 01/01/2023, 12/30/2021, Additional history exists Depression screening for age 12+ 01/06/2025 01/07/2024, 01/04/2024, 01/02/2023, Additional history exists Tetanus booster 06/06/2031 06/06/2021, 05/06, 06/02/2011, Additional history exists Pneumococcal series for age 50+ Completed 5, 06/02/2011 Zoster (shingles) series for age 50+ Completed 07/29/2018, 05/14/2018, 06/02/2011 Tdap Completed 06/06/2021, 06/02/2011 RSV vaccine for adults or Completed 12/05/2023 DEXA/DXA scan for age 65+ Completed 2023, 01/25/2021, 11/20/2017, Additional history exists Procedures Procedure Name Priority Date/Time Associated Diagnosis Comments XR DXA BONE DENSITY 2 SITES AXIAL Routine 02/12/2024 2:18 PM CDT Osteoporosis, unspecified osteoporosis type, unspecified pathological fracture presence from Last 3 Months or Most Recently Relevant to Health Maintenance Results * XR DXA BONE DENSITY 2 SITES AXIAL (02/12/2024 2:18 PM CDT) Anatomical Region Laterality Modality Spine, HIPS, HIPL, HIPR Other 02/12/2024 2:18 PM CDT Impressions 02/13/2024 9:31 AM CDT IMPRESSION: OSTEOPOROSIS. T score meets the WHO criteria for osteoporosis at one or more measured sites. The risk of osteoporotic fracture increases approximately two-fold for each standard deviation decrease in T-score. Narrative 02/13/2024 9:31 AM CDT EXAM: BONE DENSITY LOCATION: [facility] DATE: 02/12/2024 INDICATION: BMD screening, follow-up exam. DEMOGRAPHICS: Age- 78 years. Gender- Female. Menopausal status- Postmenopausal. COMPARISON: 01/25/2021. TECHNIQUE: Dual-energy x-ray absorptiometry (DXA) performed with routine technique. FINDINGS: DXA RESULTS -Lumbar Spine: L1-L4: BMD: 0.754 g/cm2. T-score: -2.7. Z-score: 0.0. -RIGHT Hip Total: BMD: 0.711 g/cm2. T-score: -1.9. Z-score: 0.2. -RIGHT Hip Femoral neck: BMD: 0.636 g/cm2. T-score: -1.9. Z-score: 0.4. -LEFT Hip Total: BMD: 0.733 g/cm2. T-score: -1.7. Z-score: 0.3. -LEFT Hip Femoral neck: BMD: 0.632 g/cm2. T-score: -2.0. Z-score: 0.3. WHO T-SCORE CRITERIA -Normal: T score at or above -1 SD -Osteopenia: T score between -1 and -2.5 SD -Osteoporosis: T score at or below -2.5 SD The World Health Organization (WHO) criteria is applicable to perimenopausal females, postmenopausal females, and men aged 50 years or older. INTERVAL CHANGE -There has been a 2.4% decrease in lumbar spine BMD. -There has been a 6.7% decrease in the right hip BMD. This indicates significant change based on 95% confidence interval. -There has been a 4.5% decrease in the left hip BMD. This indicates significant change based on 95% confidence interval. FRACTURE RISK -The FRAX risk calculator is not applicable due to osteoporosis. RECOMMENDATIONS -The patient's BMD is consistent with osteoporosis, and he/she is at increased fracture risk. If not currently being treated for low BMD, this would merit treatment according to the Bone Health and Osteoporosis Foundation. Procedure Note Major Lin PA - 02/13/2024 EXAM: BONE DENSITY LOCATION: [facility] DATE: 02/12/2024 INDICATION: BMD screening, follow-up exam. DEMOGRAPHICS: Age- 78 years. Gender- Female. Menopausal status- Postmenopausal. COMPARISON: 01/25/2021. TECHNIQUE: Dual-energy x-ray absorptiometry (DXA) performed with routine technique. FINDINGS: DXA RESULTS -Lumbar Spine: L1-L4: BMD: 0.754 g/cm2. T-score: -2.7. Z-score: 0.0. -RIGHT Hip Total: BMD: 0.711 g/cm2. T-score: -1.9. Z-score: 0.2. -RIGHT Hip Femoral neck: BMD: 0.636 g/cm2. T-score: -1.9. Z-score: 0.4. -LEFT Hip Total: BMD: 0.733 g/cm2. T-score: -1.7. Z-score: 0.3. -LEFT Hip Femoral neck: BMD: 0.632 g/cm2. T-score: -2.0. Z-score: 0.3. WHO T-SCORE CRITERIA -Normal: T score at or above -1 SD -Osteopenia: T score between -1 and -2.5 SD -Osteoporosis: T score at or below -2.5 SD The World Health Organization (WHO) criteria is applicable to perimenopausal females, postmenopausal females, and men aged 50 years or older. INTERVAL CHANGE -There has been a 2.4% decrease in lumbar spine BMD. -There has been a 6.7% decrease in the right hip BMD. This indicates significant change based on 95% confidence interval. -There has been a 4.5% decrease in the left hip BMD. This indicates significant change based on 95% confidence interval. FRACTURE RISK -The FRAX risk calculator is not applicable due to osteoporosis. RECOMMENDATIONS -The patient's BMD is consistent with osteoporosis, and he/she is at increased fracture risk. If not currently being treated for low BMD, this would merit treatment according to the Bone Health and Osteoporosis Foundation. IMPRESSION: IMPRESSION: OSTEOPOROSIS. T score meets the WHO criteria for osteoporosis at one or more measured sites. The risk of osteoporotic fracture increases approximately two-fold for each standard deviation decrease in T-score. Zee Bentley MD DEXA Final Re sult from Last 3 Months or Most Recently Relevant to Health Maintenance Insurance MEDICARE PB ONLY MEDICARE PART B HB ONLY MEDICARE PART A HB ONLY [facility] FED EMP Advance Directives Documents on File Type Date Recorded Patient Non Linear Editor Expl anation POLST 10/18/2022 Healthcare Directive 04/08/2013 10:48 AM he althcare directive, [place], 04/03/13 * Full Code (Latest Code Status on File) Date Activated Date Inactivated Comments 10/03/2011 7:00 AM 10/04/2011 7:19 PM Care Teams Learning Support Specialist Relationship Specialty Start Date End Date Zee Bentley MD PCP - General 10/03/10
--- OUTSIDE RECORDS SUMMARY | 2024-12-28 19:20 | XMS_ITS | Clinical Summary ---
[facility] Organization [email or web address] Address [address] [place] [address] Care Team Providers Care Computer Information Systems Professor Name Role Phone Unavailable Primary Care Provider Unavailabl e Source Comments You are receiving this document as you are listed as the primary care provider,follow-up provider, or the patient has been referred to you for consultation.This is in compliance with the Medicare and[facility] Incentive Program,which states Providers who transition their patient to another setting of careor provider of care or refers their patient to another provider of care shouldprovide summary care record for each transition of care or referral. Decisiv Allergies Active Allergy Reactions Criticality Noted Date Comments Celecoxib Gastrointestinal 08/09/2021 Nitrofurantoin Muscle Aches/Weakness Low 05/30/2021 Other reaction(s): Muscle Weakness Sulfamethoxazole-Trime thoprim 02/07/2011 PN: LW Reaction: RESPIRATORY DISTRESS Medications aspirin 81 MG tablet Take by mouth daily (every 24 hours). 90 3 1 Active metoprolol tartrate (LOPRESSOR) 25 MG tablet Take 25 mg by mouth two times a day. Active Cranberry 400 MG Take 400 mg by mouth two times a day. 1 Active levothyroxine (SYNTHROID) 75 MCG tablet TAKE 1 TABLET BY MOUTH BEFORE BREAKFAST 1 Active Calcium Carbonate (AKA OS-LEV) 1250 (500 Ca) MG chewable tablet Chew 1 Tablet (500 mg) by mouth 3 times daily with meals. 1 Active triamcinolone acetonide (KENALOG) 0.1 % ointmentIndicat ions:Dermatitis Apply topically two times a day. Apply to affected area 60 g 1 2 Active gabapentin (NEURONTIN) 300 MG capsuleIndicati ons:Pruritus Take one capsule by mouth at night. 30 Capsule 2 2 Active escitalopram oxalate (LEXAPRO) 5 MG tablet Take 5 mg by mouth daily. Active gabapentin (NEURONTIN) 100 MG capsuleIndicati ons:Dermatitis Take one capsule by mouth in morning and at lunch. Monitor for drowsiness and dizziness. 60 Capsule 2 2 Active Active Problems Problem Noted Date Diagnosed Date Atopic dermatitis 06/19/2022 Overview (06/19/2022): Workup- 10/13/21: hyponatremia but otherwise CMP WNL, normal tryptase, normal BUN creatinine, negative Lyme, negative hepatitis B surface antigen and core antibody, negative HIV, normal LFTs, normal SPEP and UPEP, TSH 3.12, normal iron studies, pemphigoid Ab panel negative 10/26/21: urticaria? tyler 180-360 mg daily. Stop zyrtec-patient thinks this may be causing insomnia, start gabapentin 11/24/21: widespread dermatitis. Prednisone taper, start nbUVB (stopped due to chest turning red after 2nd treatment) H&E:Spongiotic dermatitis with eosinophils and scattered necrotic keratinocytes. 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 Occasionally, this finding can also be observed non-specifically in other inflammatory disorders. CBC w/ diff increase absolute eosinophils, peripheral smear mild eosinophilia Since last visit: TRUE test patch test (36 allergens): completely negative Gabapentin 100 mg TID and hydroxyzine- helpful, using triamcinolone twice daily. 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 left sided. Patient has been evaluated from surgery. No surgical intervention at this time. Serial MRA have showed no change in size. Repeat planned for 2023. Incidentally found on MRA. left sided. Patient has been evaluated from surgery. No surgical intervention at this time. Serial MRA have showed no change in size. Repeat planned for 2023. Vertigo 06/02/2019 Colon polyps 11/25/2015 Overview (10/13/2021): 2 on colonoscopy 11/2015; repeat in 2020 2 on colonoscopy 11/2015; repeat in 2020 ASD (atrial septal defect) 11/28/2011 Right heart enlargement 06/07/2011 HTN (hypertension) 04/26/2011 Hypothyroidism 04/26/2011 Osteoporosis 04/26/2011 Overview (10/13/2021): Repeat in 2014; request scan of wrist also at that time. Repeat in 2014; request scan of wrist also at that time. Resolved Problems Problem Noted Date Diagnosed Date Resolved Date Dermatitis 06/19/2022 06/19/2022 Immunizations Immunization Administration Dates Next Due Flu Vac (3+ yrs) 08/25/2013,07/09/2012 Influenza IIV3 (Trivalent) F luzone Highdose, 65+ Yrs (64693) 08/05/2018,06/13/2017,07/19/2016,2014,07/04/2014 Influenza IIV4 (Quadrivalent ) Fluad, 65+ Yrs 08/02/2021 Pfizer Monovalent 12+ Purple Top 08/10/2021,03/0 01/2021,12/15/2020 Social History Tobacco Use Types Packs/Day Years Used Date Smoking Tobacco: Former Cigarettes Q uit: 1994 Smokeless Tobacco: Never Comments Unknown Sex and Gender Information Value Date Recorded Sex Assigned at Not on file Legal Sex Female 3:14 AM CDT Gender Identity Not on file Sexual Orientation Not on file Last Filed Vital Signs Vital Sign Reading Time Taken Comments Blood Pressure 140/88 02/26/2018 5:24 PM CDT Pulse 88 02/26/2018 5:24 PM CDT Temperature - - Respiratory Rate - - Oxygen Saturation - - Inhaled Oxygen Concentration - - Weight 61.1 kg (134 lb 9.6 oz) 02/26/2018 3:56 P M CDT Height 158.8 cm (5' 2.5) 02/26/2018 3:56 PM CDT Body Mass Index 24.23 02/26/2018 3:56 PM CDT Plan of Treatment Health Maintenance Due Date Last Done Comments Medicare Annual Wellness Visit 1945 Dexa 2009 RSV (1 - 1-dose 75+ series) 2019 COVID-19 Vaccine ( season) 2024 02/16/2022, 08/10/2021, 01/05/2021, Additional history exists Influenza (#1) 2024 08/02/2021, 06/06, 07/02/2020, Additional history exists DTaP/Tdap/Td (3 - Tdap) 06/06/2031 06/06/2021, 06/02 Pneumococcal 50+ Yrs Completed 09/08/2015, 06/02/20 11 Zoster/Shingles Completed 07/29/2018, 05/05, 06/02/2011 HepA Aged Out No longer eligi ble based on patient's age to complete this topic HepB Aged Out No longer eligi ble based on patient's age to complete this topic Hib Aged Out No longer eligi ble based on patient's age to complete this topic IPV (Polio) Aged Out No longer eligi ble based on patient's age to complete this topic MCV4 Aged Out No longer eligi ble based on patient's age to complete this topic Meningococcal B Aged Out No longer el igible based on patient's age to complete this topic Insurance BS FEDERAL MEDICARE MEDICARE BCBS FEDERAL
[2024-12-28 19:27] LABS: NT Pro B Type NatriureticPept* 259 pg/mL; Troponin I* < 0.01 ng/mL (0.01-0.04)
[2024-12-28] MEDS: ONDANSETRON 2 MG/ML inj 4 MG IVP (19:32)
[2024-12-28] MEDS: METOPROLOL TARTRATE 25 MG TABLET PO (20:13)
[2024-12-28 20:41] LABS: PCR FLU A Negative PCR FLU A (Negative); PCR FLU B Negative PCR FLU B (Negative); PCR RSV Negative PCR RSV (Negative); SARS PCR* Negative SARS-CoV-2 (Negative)
--- NOTE | 2024-12-28 20:41 | PM.IMHP1 ---
Hospitalist- H&P: HPI History of Present Illness Date Seen: 12/28/24 Chief complaint: BP 195/121 Narrative: Vicky Crum is a 79 year old female with history of hypertension, hypothyroidism, atrial septal defect status post closure, left carotid pseudoaneurysm, anxiety, insomnia presents with onset this morning of feeling dizzy, lightheaded, weak. With this she had a frontal headache. She ate lunch and had an emesis after that. It was nonbloody. She also had an episode of diarrhea also nonbloody. Since this is happened she feels ongoing sense of dizziness, unsteadiness, weakness and lightheadedness. She feels like she is unable to walk with her walker as she normally does. At her assisted living they checked her blood pressure and her systolic pressure was 200. They call the nurse who recommended she come to the emergency room. Since coming to the hospital her headache has resolved. She has had no further vomiting or diarrhea. She does remain however with a strong feeling of dizziness weakness and lightheadedness. She lives at the [facility] in [place]. They have had an outbreak of norovirus at that facility and that facility has been on isolation for 6 days. Review of Systems Narrative: Social history: She lives at the [facility] in [place]. She walks independently with a 4 wheeled walker and generally reports this goes well for her. She gets assistance with bathing, dressing, meals and medication administration. She is a former smoker. She drinks 1/2 glass of white wine per day. Her daughter Lluvia is her healthcare power of assembler small products. Code status is DNR DNI [facility] Medical History (Updated 12/28/24 @ 21:04 by Jairo Canales MD) Right ventricular enlargement ?I51.7 - Cardiomegaly (ICD-10) Coronary artery disease ?I25.10 - Atherosclerotic heart disease of [place] coronary artery without angina pectoris (ICD-10) Hydrocephalus ?G91.9 - Hydrocephalus, unspecified (ICD-10) 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 - Aneurysm of carotid artery (ICD-10) Osteoarthritis ?M19.90 - Unspecified osteoarthritis, unspecified site (ICD-10) Osteoporosis ?M81.0 - Age-related osteoporosis without current pathological fracture (ICD-10) Insomnia ?G47.00 - Insomnia, unspecified (ICD-10) Anxiety ?F41.9 - Anxiety disorder, unspecified (ICD-10) Hypothyroidism ?E03.9 - Hypothyroidism, unspecified (ICD-10) Hypertension ?I10 - Essential (primary) hypertension (ICD-10) Surgical History (Updated 12/28/24 @ 20:54 by Jairo Canales MD) H/O abdominal hysterectomy ?Z90.710 - Acquired absence of both cervix and uterus (ICD-10) S/P device closure of atrial septal defect ?Z87.74 - Personal history of (corrected) congenital malformations of heart and circulatory system (ICD-10) Social History Smoking Status: Former smoker What tobacco products do you use: cigarettes Years smoked: 1 Smoking quit date/years: >15 years ago Second hand tobacco smoke exposure: No How often do you have a drink containing alcohol: 4 or more times a week How many standard drinks containing alcohol do you have on a typical day: 1 or 2 How often do you have six or more drinks on one occasion: Never AUDIT-C Alcohol total score: 4 Non-prescribed substance use: denies use service: No Meds Home Medications and Allergies Home Medications ?Medication ?Instructions ?Recorded ?Confirmed ?Type alendronate 35 mg tablet 35 mg PO QWEEK 12/28/24 12/28/24 History aspirin 81 mg tablet,delayed 81 mg PO DAILY 12/28/24 12/28/24 History release (Adult Low Dose Aspirin) fluticasone furoate 50 1 inh inhalation PRN 12/28/24 History mcg/actuation blister powder for inhalation levothyroxine 88 mcg tablet 88 mcg PO DAILY 12/28/24 12/28/24 History lisinopril 10 mg tablet 10 mg PO DAILY 12/28/24 12/28/24 History metoprolol tartrate 25 mg tablet 25 mg PO BID 12/28/24 12/28/24 History mirtazapine 15 mg tablet 15 mg PO QHS 12/28/24 12/28/24 History Home Medication Comments: Take supplements at home including fish oil, vitamin D, calcium, Allergies Allergy/AdvReac Type Severity Reaction Status Date / Time nitrofurantoin (From Allergy Intermediate Hives Verified 12/28/24 17:00 Macrobid) Exam Narrative: Exam Narrative: She is alert and appears in no distress. Somewhat anxious. She gives her own history. Able to recall with fairly good detail her past medical history corroborated by her daughter. Head is without apparent trauma. No facial asymmetry. Facial strength symmetric and normal. Facial sensation is symmetric. Eyes are normal. Status post cataract surgery. Pupils are equal round reactive to light. Extraocular movements are full. Visual tatum are intact. Oropharynx with dry mucous membranes. Tongue is midline. Neck is supple without mass or adenopathy. Respirations are clear to auscultation. Breathing is unlabored. Cardiovascular: S1, S2, regular rate and rhythm. No murmur gallop or rub. Abdomen: Bowel sounds active. Abdomen is soft without tenderness or mass. Upper extremities with symmetric and full strength bilaterally at 5/5. Rapid finger taps and spnmpj-mdev-guqtmr are equal, accurately performed and normal. Lower extremity strength is also 5/5 in hip flexion, knee flexion extension, ankle dorsiflexion plantar flexion, great toe dorsiflexion. Heel-vargas is normal. No edema. No rash. Intact pulses. Const: Vital Signs, click to edit/add: Vital Signs - 24 hr 12/28/24 17:00 12/28/24 17:43 12/28/24 18:00 Temperature 98 F Pulse Rate [Pulse Oximeter] 88 73 Respiratory Rate 18 16 Blood Pressure [Ri ght Upper Arm] 173/97 H 161/105 H 146/88 H Pulse Oximetry 97 96 Oxygen Delivery Me thod Room Air Room Air 12/28/24 19:00 Temperature Pulse Rate [Pulse Oximeter] 78 Respiratory Rate 18 Blood Pressure [Ri ght Upper Arm] 143/86 H Pulse Oximetry 96 Oxygen Delivery Me thod Room Air Documenting provider has reviewed patient's vital signs: yes Hospitalist - H&P: Result Labs Labs: Short CBC 12/28/24 Range/Units 18:45 WBC 4.55 (4.50-11.00) K/uL Hgb 11.0 L (12.0-16.0) gm/dL Hct 33.6 (33.0-51.0) % Plt Count 302 (140-440) K/uL BMP 12/28/24 18:45 Sodium 128 L Potassium 4.1 Chloride 96 Carbon Dioxide 22 BUN 9 Creatinine 0.6 Glucose 109 Calcium 9.0 Cardiac Enzymes 12/28/24 Range/Units 18:45 Troponin I < 0.01 L (0.01-0.04) ng/mL Urine 12/28/24 Range/Units 17:17 Urine Color Yellow (Yellow) Urine Appearance Clear (Clear) Urine pH 7.0 (5.0-8.5) Ur Specific [place] 1.020 (1.000-1.030) Urine Protein Negative (Negative) Urine Glucose (UA) Negative (Negative) Imaging CT scan - abdomen: Radiologist's impression: INDICATION: Dizziness, hematuria. TECHNIQUE: CT abdomen and pelvis without contrast. COMPARISON: None. FINDINGS: Lower chest: Scattered atelectasis. Liver: Normal in size and attenuation. No suspicious masses. Gallbladder and bile ducts: No stones or inflammation. No biliary dilatation. Pancreas: Unremarkable. No mass or inflammation. Spleen: Normal in size. No masses. Adrenal glands: Normal in size. No nodules. Kidneys: Bilateral extrarenal pelvis. Normal in size. No suspicious masses, stones, or hydronephrosis. GI tract: Colonic diverticulosis without diverticulitis.. Normal in caliber. No sign of mass or inflammation. Normal appendix. Vasculature: Aortoiliac arterial calcifications. Abdominal aorta is normal in caliber. Lymph nodes: No lymphadenopathy. Peritoneum/Abdominal Wall: Unremarkable. No sign of mass or infiltration. No free air or significant free fluid. Pelvis: Hysterectomy. No pelvic masses. Bones: Unremarkable for age. IMPRESSION: No acute intra-abdominal/pelvic abnormality, including renal stones or obstructive uropathy. Colonic diverticulosis without diverticulitis. CT scan - head: Radiologist's impression: INDICATION: Headache and nausea. COMPARISON: None. TECHNIQUE: Noncontrast CT head. FINDINGS: Moderate generalized volume loss. Patchy low-attenuation change within the white matter consistent with chronic deep white matter small vessel ischemic changes. No acute intracranial hemorrhage, acute infarct, mass effect, or fracture. Compensatory dilatation ventricular system. Normal calvarium and skull base. Visualized paranasal sinuses mastoid air cells are clear. Normal orbits bilaterally. IMPRESSION: 1. No acute intracranial abnormality. 2. Moderate generalized cerebral volume loss. Chronic deep white matter small vessel ischemic changes Chest x-ray: Radiologist's impression: INDICATION: Dizziness, hypertension TECHNIQUE: Chest 2 views. COMPARISON: None. FINDINGS: Cardiovascular and mediastinum: Heart size and vasculature are normal in caliber and appearance. Probable atrial septal occluded device. Lungs and pleural spaces: Lungs are clear. No sign of infiltrate or mass. No sign of pleural effusion. No pneumothorax. Bones and soft tissues: Decreased osseous mineralization. Excessive kyphotic curvature. No significant findings. IMPRESSION: No acute or significant findings. Assessment and Plan Assessment and plan (1) Dizziness: Problem comment: Relatively abrupt onset of a sense of dizziness which includes lightheadedness, ataxia or feeling of poor balance and leg weakness. No vertigo. Considerations include stroke or neurologic affects of other systemic illness. With history of abnormal brain imaging will obtain MRI tomorrow. Status: Acute (2) Vomiting and diarrhea: Problem comment: One episode each of nonbloody vomiting and diarrhea today. Notably her assisted living is under isolation for a norovirus outbreak. Monitor for recurrent symptoms Status: Acute (3) Weakness: Problem comment: Disabling weakness with onset today. Feels unsafe to walk with a walker since her symptoms began Status: Acute (4) Hypertension: Problem comment: Marked hypertension today. Likely in response to other medical problems such as possible stroke, norovirus infection or anxiety. Pending further evaluation for stroke will allow permissive hypertension Status: Acute Plan Patient is admitted for further evaluation of symptoms described above. Obtain MRI brain. Monitor for gastrointestinal symptoms. Permissive hypertension pending MRI. Therapy to evaluate mobility. Total Time Spent Total Time Spent: Total time spent today is 60 minutes in reviewing outside records, coordination of care, discussing with patient daughter and other providers ongoing evaluation management of multiple symptoms outlined above.
[2024-12-28 21:34] LABS: Thyroid Stimulating Hormone* 0.627 uIU/mL (0.270-4.20)
[2024-12-28] MEDS: MIRTAZAPINE 15 MG TABLET PO (22:13)
[2024-12-28] MEDS: SODIUM CHLORIDE 0.9 % (FLUSH) 10 ML SYRINGE 5 ML IVF (22:14)
[2024-12-28] MEDS: ACETAMINOPHEN 325 MG TABLET 650 MG PO (22:35)
[2024-12-29] VITALS (9 sets, daily range): BP systolic 111–174; BP diastolic 70–115; PULSE 67–90; RESP 16–18; TEMP 36.4–36.7; O2SAT 93–98
--- NOTE | 2024-12-29 | CRLHL7_ITS ---
For Patients: As a result of the Century Cures Act, medical imaging exams and procedure reports are released immediately into your electronic medical record. You may view this report before your referring provider. If you have questions, please contact your health care provider. INDICATION: Dizziness. Ataxia. TECHNIQUE: Multiplanar multisequence noncontrast MR images of the brain. COMPARISON: CT brain 12/28/2024. FINDINGS: Gdsm-dv-roykvxqh diffuse cerebral volume loss. No mass effect or midline shift. Patchy FLAIR hyperintensities in the supratentorial white matter, typical for moderate chronic microvascular ischemic changes. Chronic lacunar infarction right thalamus. No diffusion restriction to suggest acute infarction. No intracranial hemorrhage or pathologic extra-axial fluid collection. The major arterial flow voids at the skull base are preserved. Thinning of the ocular lenses. Mild paranasal sinus mucosal thickening. Mastoid air cells are clear. IMPRESSION: 1. No acute intracranial abnormality. 2. Chronic lacunar infarction right thalamus. 3. Moderate chronic microvascular ischemic changes and [id number]-[id number]-hvfpyudr diffuse cerebral volume loss. Dictated by Harmeet Lee MD @ 12/29/2024 9:58:39 AM (Electronically Signed)
[2024-12-29] MEDS: LEVOTHYROXINE 88 MCG TABLET PO (05:35)
--- NOTE | 2024-12-29 06:11 | PC.NURSE ---
Pt alert and oriented x3. Pt reports 2/10 headache, managed with PRN Tylenol. ?Pt up A1 with walker and gait belt or wheelchair and gait belt, voiding, and tolerating a regular diet. Pt reports intermittent dizziness. When asked if anything makes it worse or better, pt stated ?No, it just comes and goes?. Pt denies SOB, chest pain, and N/V. VSS.?
[2024-12-29 06:40] LABS: Basophils Percent Auto 0.9 % (0.0-3.0); Eosinophils Percent Auto 3.9 % (0.0-7.0); Hematocrit 30.9 % (33.0-51.0); Lymphocytes Percent Auto 40.9 % (20-44); Mean Corpuscular HGB Conc 32 gm/dL (32-36); Mean Corpuscular Hemoglobin 28 pg (26-34); Mean Corpuscular Volume 86 fL (80-100); Monocytes Percent Auto 10.4 % (0.0-11.0); Neutrophils Percent Auto 43.9 % (42.0-72.0); Platelet Count* 280 K/uL (140-440); RDW Coefficient of Variation % 14.9 % (11.5-15.5); Red Blood Count 3.61 m/uL (4.00-5.20); White Blood Count* 4.33 K/uL (4.50-11.00)
[2024-12-29 06:52] LABS: Slide Review Reflex No
[2024-12-29 07:08] LABS: Chloride* 102 mmol/L (96-114); Sodium* 133 mmol/L (135-149)
[2024-12-29 07:10] LABS: Creatinine* 0.6 mg/dL (0.5-1.5); Est. Creatinine Clearance* 35.49; Estimated Glomerular Filt Rate 91 ml/min
[2024-12-29 07:11] LABS: Anion Gap 6 mEq/L (7-15); Blood Urea Nitrogen* 8 mg/dL (7-30); Calcium* 8.8 mg/dL (8.4-10.6); Carbon Dioxide* 25 mmol/L (20-32); Glucose* 94 mg/dL (60-115)
[2024-12-29 07:26] LABS: Potassium* 3.8 mmol/L (3.6-5.1)
[2024-12-29] MEDS: METOPROLOL TARTRATE 25 MG TABLET PO ×2 (09:50→21:37)
[2024-12-29] MEDS: SODIUM CHLORIDE 0.9 % (FLUSH) 10 ML SYRINGE 5 ML IVF ×2 (09:51→21:37)
[2024-12-29] MEDS: ASPIRIN 81 MG TABLET EC PO (09:51)
--- NOTE | 2024-12-29 10:48 | PM.IMPN1 ---
Progress Note: A&P Assessment and plan (1) Dizziness: Problem details: -Relatively abrupt onset of a sense of dizziness which includes lightheadedness, ataxia or feeling of poor balance and leg weakness. No vertigo. Considerations include stroke or neurologic affects of other systemic illness. With history of abnormal brain imaging will obtain MRI on 12/29/2024. 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 -Dizziness markedly improved on 12/29/2024 Status: Acute (2) Vomiting and diarrhea: Problem details: -One episode each of non-bloody vomiting and diarrhea today. Notably her assisted living is under isolation for a norovirus outbreak. Monitor for recurrent symptoms -12/29/2024: seemingly resolved Status: Acute (3) Weakness: Problem details: -Disabling weakness with onset today. Feels unsafe to walk with a walker since her symptoms began -slowly improving as of 12/29/2024, but still not back to baseline Status: Acute (4) Hypertension: Problem details: -Marked hypertension on admission on 12/28/2024. Likely in response to other medical problems such as possible stroke, norovirus infection or anxiety. Pending further evaluation for stroke will allow permissive hypertension -12/29/2024 MRI of brain demonstrates NO new stroke, only chronic changes. Will restart lisinopril today and monitor BP. Status: Acute (5) Chronic hyponatremia: Problem details: -baseline Na low 130s -Na 128 on admission 12/28/2024 -Na 133 on 12/29/2024 Status: Acute Plan 1. Reviewed impression and plan with patient and with her daughter, via telephone. 2. Answered their questions their satisfaction. 3. Continue with supportive efforts and if her condition continues to improve then anticipate possible discharge from the hospital as early as tomorrow. Time Spent With Patient Total time spent: 50 minutes Subjective Date Seen: 12/29/24 Interval history: Admission history of present illness: ?79 year old female with history of hypertension, hypothyroidism, atrial septal defect status post closure, left carotid pseudoaneurysm, anxiety, insomnia presents with onset this morning of feeling dizzy, lightheaded, weak. With this she had a frontal headache. She ate lunch and had an emesis after that. It was nonbloody. She also had an episode of diarrhea also nonbloody. Since this is happened she feels ongoing sense of dizziness, unsteadiness, weakness and lightheadedness. She feels like she is unable to walk with her walker as she normally does. At her assisted living they checked her blood pressure and her systolic pressure was 200. They call the nurse who recommended she come to the emergency room. Since coming to the hospital her headache has resolved. She has had no further vomiting or diarrhea. She does remain however with a strong feeling of dizziness weakness and lightheadedness. She lives at the [facility] in [place]. They have had an outbreak of norovirus at that facility and that facility has been on isolation for 6 days.? 12/29/2024: Hospital day 2. She starting to feel little better. Has not had any additional nausea, vomiting, diarrhea. Weakness is persistent but slowly improved. Interested in eating now. Denies focal motor neurologic deficits. Exam Narrative: Exam Narrative: Examined patient in her hospital room. Appears comfortable and in no acute distress. Transfers and ambulates with standby assist with use of walker. Alert and oriented x4. Anxious disposition. Friendly and cooperative. No focal motor neurologic deficits. Cranial nerves 3-12 grossly normal. Lungs clear to auscultation. Heart tones with regular rhythm. Abdomen with active bowel sounds, soft, nontender. Const: Vital Signs, click to edit/add: Vital Signs - 24 hr 12/28/24 17:00 12/28/24 17:43 12/28/24 18:00 Temperature 98 F Pulse Rate Pulse Rate [Pulse Oximeter] 88 73 Respiratory Rate 18 16 Blood Pressure [Le ft Arm] Blood Pressure [Ri ght Upper Arm] 173/97 H 161/105 H 146/88 H Pulse Oximetry 97 96 Oxygen Delivery Me thod Room Air Room Air 12/28/24 19:00 12/28/24 20:36 12/28/24 20:36 Temperature 98.2 F Pulse Rate Pulse Rate [Pulse Oximeter] 78 82 Respiratory Rate 18 18 Blood Pressure [Le ft Arm] 159/93 H Blood Pressure [Ri ght Upper Arm] 143/86 H Pulse Oximetry 96 98 Oxygen Delivery Me thod Room Air Room Air Room Air 12/28/24 22:30 12/28/24 22:52 12/29/24 02:21 Temperature 97.5 F L 97.6 F Pulse Rate 74 Pulse Rate [Pulse Oximeter] 76 71 Respiratory Rate 16 16 Blood Pressure [Le ft Arm] 146/91 H 151/87 H Blood Pressure [Ri ght Upper Arm] Pulse Oximetry 98 93 Oxygen Delivery Me thod Room Air Room Air 12/29/24 07:20 12/29/24 09:00 12/29/24 09:00 Temperature 97.6 F Pulse Rate 68 Pulse Rate [Pulse Oximeter] 83 83 Respiratory Rate 18 18 Blood Pressure [Le ft Arm] 164/93 H Blood Pressure [Ri ght Upper Arm] Pulse Oximetry 98 Oxygen Delivery Me thod Room Air Labs Labs: Laboratory Results - last 24 hr 12/28/24 12/28/24 12/28/24 17:17 18:45 19:55 WBC 4.55 RBC 3.97 L Hgb 11.0 L Hct 33.6 MCV 85 MCH 28 MCHC 33 RDW Coeff of Juliann 14.8 Plt Count 302 Neut % (Auto) 67.3 Lymph % (Auto) 23.5 [place] % (Auto) 7.5 Eos % (Auto) 1.3 Baso % (Auto) 0.4 Neut # (Auto) 3.06 Lymph # (Auto) 1.07 [place] # (Auto) 0.30 Eos # (Auto) 0.06 Baso # (Auto) 0.02 Abs Immat Gran (auto) 0.00 Imm/Tot Granulo (auto) 0.0 Sodium 128 L Potassium 4.1 Chloride 96 Carbon Dioxide 22 Anion Gap 10 BUN 9 Creatinine 0.6 Estimated Creat Clear 35.49 Estimated GFR 91 Glucose 109 Lactate 1.0 Calcium 9.0 Troponin I < 0.01 L NT-Pro-B Natriuret Pep 259 TSH 0.627 Urine Color Yellow Urine Appearance Clear Urine pH 7.0 Ur Specific [place] 1.020 Urine Protein Negative Urine Glucose (UA) Negative Urine Ketones Negative Urine Blood Trace-intact A Urine Nitrite Negative Urine Bilirubin Negative Urine Urobilinogen 0.2 Ur Leukocyte Esterase Negative Urine RBC 10-25 A Urine WBC 0-2 Ur Squamous Epith Cells None Urine Bacteria None SARS-CoV-2 (PCR) Negative SARS-CoV-2 Influenza Type A (PCR) Negative PCR FLU A Influenza Type B (PCR) Negative PCR FLU B RSV (PCR) Negative PCR RSV Lab Acknowledgement 12/28/24 12/29/24 20:39 05:36 WBC 4.33 L RBC 3.61 L Hgb 10.0 L Hct 30.9 L MCV 86 MCH 28 MCHC 32 RDW Coeff of [place] 14.9 Plt Count 280 Neut % (Auto) 43.9 Lymph % (Auto) 40.9 [place] % (Auto) 10.4 Eos % (Auto) 3.9 Baso % (Auto) 0.9 Neut # (Auto) 1.90 Lymph # (Auto) 1.80 [place] # (Auto) 0.50 Eos # (Auto) 0.20 Baso # (Auto) 0.00 Abs Immat Gran (auto) 0.00 Imm/Tot Granulo (auto) 0.0 Sodium 133 L Potassium 3.8 Chloride 102 Carbon Dioxide 25 Anion Gap 6 L BUN 8 Creatinine 0.6 Estimated Creat Clear 35.49 Estimated GFR 91 Glucose 94 Lactate Calcium 8.8 Troponin I NT-Pro-B Natriuret Pep TSH Urine Color Urine Appearance Urine pH Ur Specific [place] Urine Protein Urine Glucose (UA) Urine Ketones Urine Blood Urine Nitrite Urine Bilirubin Urine Urobilinogen Ur Leukocyte Esterase Urine RBC Urine WBC Ur Squamous Epith Cells Urine Bacteria SARS-CoV-2 (PCR) Influenza Type A (PCR) Influenza Type B (PCR) RSV (PCR) Lab Acknowledgement Test Added
[2024-12-29] MEDS: lisinopriL 10 MG TABLET PO (11:34)
--- NOTE | 2024-12-29 11:39 | REH.OT ---
OT screen completed. Pt lives at [facility] and receives assist with meals, meds, showering, and dressing. Pt demonstrates indep with toileting and ambulating 150 ft with 2ww. Pt appears near functional baseline. No further OT warranted.
--- NOTE | 2024-12-29 19:33 | PC.NURSE ---
Pt up with SBA and 4 wheel walker, which is pt baseline. Walked x5 in [place] during day shift. Denies pain, nausea and diarrhea.
[2024-12-29] MEDS: MIRTAZAPINE 15 MG TABLET PO (21:38)
[2024-12-30 02:57] VITALS: BP 136/81; PULSE 71; RESP 18; TEMP 36.7; O2SAT 97
[2024-12-30] MEDS: LEVOTHYROXINE 88 MCG TABLET PO (05:24)
[2024-12-30 05:30] VITALS: BP 151/114; BP 153/84; BP 157/95; PULSE 71; PULSE 76; PULSE 93
[2024-12-30 05:36] VITALS: BP 144/85
[2024-12-30 06:30] LABS: Hematocrit 30.4 % (33.0-51.0); Hemoglobin* 9.8 gm/dL (12.0-16.0); Mean Corpuscular HGB Conc 32 gm/dL (32-36); Mean Corpuscular Hemoglobin 28 pg (26-34); Mean Corpuscular Volume 85 fL (80-100); Platelet Count* 267 K/uL (140-440); Red Blood Count 3.57 m/uL (4.00-5.20); White Blood Count* 4.47 K/uL (4.50-11.00)
[2024-12-30 06:31] LABS: Slide Review Reflex No
[2024-12-30 06:41] LABS: Sodium* 128 mmol/L (135-149)
--- NOTE | 2024-12-30 06:54 | PC.NURSE ---
End of shift note [id number]: Pt A&Ox4 and able to make needs known. Tele in place with NSR noted. Pt has been afebrile and on RA throughout the shift. Pt compliant with [address] She is transferring/ambulating in room and in hallway with SBA using walker and gait belt. Pt has been denying pain when asked throughout the shift and has been continent of bladder. No N/V noted or reported. Orthostatic blood pressure/heart rate assessment completed per order. Bed alarm on for safety with call light within reach. ?
[2024-12-30 07:00] VITALS: BP 114/67; PULSE 67; PULSE 92; RESP 20; TEMP 36.3; O2SAT 97
[2024-12-30] MEDS: lisinopriL 10 MG TABLET PO (09:15)
[2024-12-30] MEDS: ASPIRIN 81 MG TABLET EC PO (09:15)
[2024-12-30] MEDS: METOPROLOL TARTRATE 25 MG TABLET PO (09:15)
--- NOTE | 2024-12-30 12:14 | PC.SOCIAL ---
Discharge planning: Pt will discharge back to her Assisted Living today at [facility] in [place], [place]. drive worker faxed the discharge orders to Phillip alfaro [facility] at fax number #[phone]. Social work to follow-up as needed.
--- NOTE | 2024-12-30 13:43 | PC.NURSE ---
Discharge - Pt alert, oriented, cooperative. Observed to ambulate in halls with staff multiple times during shift. Tolerating RA, regular diet/fluids. Denies pain, SOB, n/v. IV removed with catheter intact. D/C education given to pt with verbalized understanding. Pt d/c'd to [facility] via wheelchair with daughter at roughly 1210.
--- NOTE | 2024-12-30 16:19 | PM.DS1 ---
DS: Providers Provider Date Seen: 12/30/24 Date of admission: 12/29/24 09:20 Primary care physician: Not a Local Provider Admitting Clinician: Jairo Canales MD Consults: 12/28/24 20:33 Consult to Occupational Therapy [CONS] Routine Comment: Reason(s) for OT Consult:: Evaluate and Treat Any Restrictions?:: No Restrictions Consult to Physical Therapy [CONS] Routine Comment: Reason(s) for PT Consult:: Evaluate and Treat Any Restrictions?:: No Restrictions Attending Physician on discharge: Artie Shelton MD Date of Discharge: 12/30/24 DS: Diagnosis Discharge Diagnosis (1) Weakness: Status: Acute Problem details: -Disabling weakness with onset today. Feels unsafe to walk with a walker since her symptoms began -slowly improving as of 12/29/2024, back to baseline on 12/30/24 (2) Chronic hyponatremia: Status: Acute Problem details: -baseline Na low 130s -Na 128 on admission 12/28/2024 -Na 133 on 12/29/2024 (3) Vomiting and diarrhea: Status: Acute Problem details: -One episode each of non-bloody vomiting and diarrhea today. Notably her assisted living is under isolation for a norovirus outbreak. Monitor for recurrent symptoms -12/29/2024: seemingly resolved (4) Anxiety: Status: Acute (5) Hypertension: Status: Acute Problem details: -Marked hypertension on admission on 12/28/2024. Likely in response to other medical problems such as possible stroke, norovirus infection or anxiety. Pending further evaluation for stroke will allow permissive hypertension -12/29/2024 MRI of brain demonstrates NO new stroke, only chronic changes. Will restart lisinopril and monitor BP. (6) Dizziness: Status: Acute Problem details: -Relatively abrupt onset of a sense of dizziness which includes lightheadedness, ataxia or feeling of poor balance and leg weakness. No vertigo. Considerations include stroke or neurologic affects of other systemic illness. With history of abnormal brain imaging will obtain MRI on 12/29/2024. 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 -Dizziness markedly improved on 12/29/2024 DS: Summary Hospital Course Hospital Course: Admission history of present illness: ?79 year old female with history of hypertension, hypothyroidism, atrial septal defect status post closure, left carotid pseudoaneurysm, anxiety, insomnia presents with onset this morning of feeling dizzy, lightheaded, weak. With this she had a frontal headache. She ate lunch and had an emesis after that. It was nonbloody. She also had an episode of diarrhea also nonbloody. Since this is happened she feels ongoing sense of dizziness, unsteadiness, weakness and lightheadedness. She feels like she is unable to walk with her walker as she normally does. At her assisted living they checked her blood pressure and her systolic pressure was 200. They call the nurse who recommended she come to the emergency room. Since coming to the hospital her headache has resolved. She has had no further vomiting or diarrhea. She does remain however with a strong feeling of dizziness weakness and lightheadedness. She lives at the [facility] in [place]. They have had an outbreak of norovirus at that facility and that facility has been on isolation for 6 days.? Patient treated symptomatically and her condition improved back to baseline during her short hospital stay. Status at Discharge Overall status at discharge: patient is back to baseline Time Spent with Patient Time attestation: Total time spent providing and/or coordinating discharge services: Time spent: Less than 30 minutes Exam Narrative: Exam Narrative: Examined patient in her hospital room. Appears comfortable and in no acute distress. Transfers and ambulates with standby assist with use of walker. Alert and oriented x4. Anxious disposition. Friendly and cooperative. No focal motor neurologic deficits. Cranial nerves 3-12 grossly normal. Lungs clear to auscultation. Heart tones with regular rhythm. Abdomen with active bowel sounds, soft, nontender. Const: Vital Signs, click to edit/add: Vital Signs - 24 hr 12/29/24 19:33 12/29/24 21:42 12/29/24 22:43 Temperature 97.9 F 98.0 F Pulse Rate 67 Pulse Rate [Pulse Oximeter] 90 79 Pulse Rate [orthos tatic lying Left P ulse Oximeter] Pulse Rate [orthos tatic sitting Left Pulse Oximeter] Pulse Rate [orthos tatic standing Lef t Pulse Oximeter] Respiratory Rate 16 16 Blood Pressure [Le ft Arm] 111/70 128/78 Blood Pressure [Ri ght Arm] Blood Pressure [or thostatic lying Le ft Arm] Blood Pressure [or thostatic sitting Left Arm] Blood Pressure [or thostatic standing Left Arm] Pulse Oximetry 97 96 Oxygen Delivery Me thod Room Air Room Air 12/29/24 23:00 12/30/24 02:57 12/30/24 05:30 Temperature 98.0 F Pulse Rate Pulse Rate [Pulse Oximeter] 79 71 Pulse Rate [orthos tatic lying Left P ulse Oximeter] 76 Pulse Rate [orthos tatic sitting Left Pulse Oximeter] 71 Pulse Rate [orthos tatic standing Lef t Pulse Oximeter] 93 Respiratory Rate 16 18 Blood Pressure [Le ft Arm] 136/81 Blood Pressure [Ri ght Arm] Blood Pressure [or thostatic lying Le ft Arm] 153/84 H Blood Pressure [or thostatic sitting Left Arm] 157/95 H Blood Pressure [or thostatic standing Left Arm] 151/114 H Pulse Oximetry 97 Oxygen Delivery Me thod Room Air 12/30/24 05:36 12/30/24 07:00 12/30/24 07:00 Temperature 97.3 F L Pulse Rate 67 Pulse Rate [Pulse Oximeter] 92 Pulse Rate [orthos tatic lying Left P ulse Oximeter] Pulse Rate [orthos tatic sitting Left Pulse Oximeter] Pulse Rate [orthos tatic standing Lef t Pulse Oximeter] Respiratory Rate 20 Blood Pressure [Le ft Arm] 144/85 H Blood Pressure [Ri ght Arm] 114/67 Blood Pressure [or thostatic lying Le ft Arm] Blood Pressure [or thostatic sitting Left Arm] Blood Pressure [or thostatic standing Left Arm] Pulse Oximetry 97 Oxygen Delivery Al thod Room Air DS: Data Data Completed and Pending Labs on day of discharge: Labs from last 24 hours 12/30/24 05:51 WBC 4.47 L RBC 3.57 L Hgb 9.8 L Hct 30.4 L MCV 85 MCH 28 MCHC 32 Plt Count 267 Sodium 128 L Preliminary micro results at discharge 12/28/24 20:39 Urine Culture - Preliminary Urine,Clean Catch Gram negative sanjay Imaging Chest x-ray: Radiologist's impression: No acute cardiopulmonary processes noted. CT scan - head: Radiologist's impression: IMPRESSION: 1. No acute intracranial abnormality. 2. Moderate generalized cerebral volume loss. Chronic deep white matter small vessel ischemic changes CT scan of abdomen and pelvis : Radiologist's impression: IMPRESSION: No acute intra-abdominal/pelvic abnormality, including renal stones or obstructive uropathy. Colonic diverticulosis without diverticulitis. MR Brain: Radiologist's impression: IMPRESSION: 1. No acute intracranial abnormality. 2. Chronic lacunar infarction right thalamus. 3. Moderate chronic microvascular ischemic changes and [id number] diffuse cerebral volume loss. Discharge Plan Discharge Disposition: [facility] Date of Admission: 12/29/24 09:20 Attending Provider on Discharge: Artie Shelton Primary Care Provider: Provider,Not a Local Condition: Improved Anticipated Discharge Date/Time: 12/30/24 11:55 Discharge Medications: Continued alendronate 35 mg tablet 35 mg PO QWEEK aspirin [Adult Low Dose Aspirin] 81 mg tablet,delayed release (DR/EC) 81 mg PO DAILY fluticasone furoate 50 mcg/actuation blister with device 1 inh inhalation PRN lisinopril 10 mg tablet 10 mg PO DAILY metoprolol tartrate 25 mg tablet 25 mg PO BID mirtazapine 15 mg tablet 15 mg PO QHS levothyroxine 88 mcg tablet 88 mcg PO DAILY Discharge Orders: Discharge Order (Routine); Ordered 12/30/24 Ordered By: Artie Shelton Additional Instructions: 1. Follow-up with primary care physician in 1-2 weeks with pre-visit hemoglobin and sodium; 2. Return to clinic or emergency department sooner if condition changes and warrants. Activity Level: Activity as Tolerated Activity Detail: Continue with exercise classes as previously Discharge Diet: Regular, Heart Healthy (2 gm sodium, low fat) and 2000 ml Fluid Restriction Diet Detail: Fluid restriction to help correct chronic low sodium Follow Up Appointments: Provider,Not a Local [Primary Care Provider] - Forms: Swag Of The Month Info Instructions Admit to: Assisted Living Length of Stay: >90 days Code Status: DNR/DNI Oxygen: No Urinary Catheter: No Orders are good >30 days: Yes Signature: Artie Shelton
== END 2024-12-30 12:10 | disposition home or self-care (01) | DRG 641 ==
LOC: ED 19:54 → MEDSURG 20:29
PROVIDERS: Admitting Provider Family Medicine; Emergency Provider Emergency Medicine; Visit Provider Internal Medicine
DX: E87.1 Hypo-osmolality and hyponatremia (principal); G91.9 Hydrocephalus, unspecified; R42 Dizziness and giddiness; R11.10 Vomiting, unspecified; R19.7 Diarrhea, unspecified; R53.1 Weakness; G47.00 Insomnia, unspecified; F41.9 Anxiety disorder, unspecified; I72.0 Aneurysm of carotid artery; I11.9 Hypertensive heart disease without heart failure; I25.10 Atherosclerotic heart disease of native coronary artery without angina pectoris; E03.9 Hypothyroidism, unspecified
CPT/HCPCS: 36415; 70450; 70551; 71046; 74176; 80048; 81001; 83605; 83880; 84295; 84443; 84484; 85025; 85027; 87081; 87086; 87631; 97116; 97161; 99284; 99285; A9270; G0378; J2405; J7030

== ENCOUNTER 2025-09-04 16:10 | Inpatient (IN) | payer MEDICARE, BC, SELFPAY ==
[2025-09-04] VITALS (17 sets, daily range): BP systolic 109–166; BP diastolic 59–92; PULSE 90–107; RESP 15–23; TEMP 36.3–36.4; O2SAT 93–98; BMI 23.4; BMI 23.5
--- OUTSIDE RECORDS SUMMARY | 2025-09-04 16:12 | XMS_ITS | Clinical Summary ---
Author Organization Tow Address [address] [place] [address]. 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 Gender Identity Not on file Sexual Orientation [...] REVIEW OF HM ORDERS 1945 DEXA 1945 FALL RISK ASSESSMENT 2009 RSV VACCINE (1 - 1-dose 75+ series) 2019 BMP 07/08/2022 07/08/2021, 05/07, 10/29/2011 TSH W/FREE T4 REFLEX 07/08/2022 07/08/2021 MEDICARE ANNUAL WELLNESS VISIT 12/30/2022 12/30/2021, 12/29/2020 PHQ-2 (once per calendar year) 2024 COVID-19 VACCINE ( season) 2025 07/31/2022, 02/16/2022, 08/10/2021, Additional history exists INFLUENZA VACCINE (#1) 2025 , 08/02/2021, 07/02/2020, Additional history exists ADVANCE CARE PLANNING 01/06/2030 01/06/2025, 022 DTAP/TDAP/TD VACCINE (3 - Td or Tdap) 06/06/2031 06/06/2021, 06/02/2011 PNEUMOCOCCAL VACCINE 50+ YEARS Completed 09/08/2015, 06/02/2011 COLONOSCOPY Discontinued 11/16/2015, 11/16/2015 COLORECTAL CANCER SCREENING Discontinued ZOSTER VACCINE Completed 07/29/2018, 05/05, 06/02/2011 MAMMO SCREENING Discontinued 01/04/2022, 04/06, 04/11/2019 CT COLONOGRAPHY Discontinued FIT Discontinued FLEX SIG Discontinued HPV VACCINE (No Doses Required) Completed MENINGITIS VACCINE Aged Out No longer eligible based on patient's age to complete this topic sDNA (Cologuard) Discontinued Procedures Procedure Name Priority Date/Time Associated Diagnosis Comments TSH WITH FREE T4 REFLEX STAT 07/08/2021 4:19 PM CDT BASIC METABOLIC PANEL STAT 07/08/2021 4:19 PM CDT COLONOSCOPY Routine 11/16/2015 8:20 AM SOLE SEWER HAND from Last 3 Months or Most Recently Relevant to Health Maintenance Results * TSH with free T4 reflex (07/08/2021 4:19 PM CDT) TSH 1.84 0.40 - 4.00 mU/L 07/08/2021 5:24 PM CDT [facility] Blood VENOUS LINE / Unknown Venipuncture / Unknown 07/08/2021 4:19 PM CDT 07/08/2021 4:22 PM CDT us Bridget Yates DO LAB - BLOOD ORDERABLES Final Res ult LABORATORY [facility] [address] [facility] (1st floor, no room number) [place] [address], [facility] [phone] * (ABNORMAL) Basic metabolic panel (07/08/2021 4:19 PM CDT) Sodium 130(L) 133 - 144 mmol/L 07/08/2021 4:43 PM CDT [facility] Potassium (POCT) 4.0 3.4 - 5.3 mmol/L 07/08/2021 4:43 PM CDT [facility] Chloride (POCT) 97 94 - 109 mmol/L 07/08/2021 4:43 PM CDT [facility] Carbon Dioxide (CO2) (POCT) 27 20 - 32 mmol/L 07/08/2021 4:43 PM CDT [facility] Anion Gap (POCT) 6 3 - 14 mmol/L 07/08/2021 4:43 PM CDT [facility] Urea Nitrogen (POCT) 13 7 - 30 mg/dL 07/08/2021 4:43 PM CDT [facility] Creatinine 0.71 0.52 - 1.04 mg/dL 07/08/2021 4:43 PM CDT LABORATORY Calcium 8.9 8.5 - 10.1 mg/dL 07/08/2021 4:43 PM CDT LABORATORY Glucose (POCT) 98 70 - 99 mg/dL 07/08/2021 4:43 [...] PM CDT 07/08/2021 4:22 PM CDT us Daniel Azar MD LAB - BLOOD ORDERABLES Final R esult [facility] Acute [facility] Lab [address] [facility] Lab (1st floor, no room number) [place] [address], [facility] [phone] * COLONOSCOPY (11/16/2015 8:20 AM SOLE SEWER HAND) [facility] Signature COLONOSCOPY [facility] Patient Name: Vicky Crum Procedure Date: 11/16/2015 8:20 AM Date of : 1945 Admit Type: Outpatient Age: 70 Gender: Female Attending MD: Carlos Burrows MD Instrument Name: [id number] Procedure: Colonoscopy Indications: Follow-up for history of adenomatous polyps in the colon Providers: Carlos Burrows MD, Jess Cronin, RN (Nurse) Referring MD: Zee Bentley MD [...] and oxygen saturations were monitored continuously. The [id number] was introduced through the anus and advanced [...] adenoma surveillance. Procedure Code(s): --- Professional --- 33204, Colonoscopy, flexible, proximal to splenic flexure; with biopsy, single or multiple CPT copyright 2013 [employer]. All rights reserved. 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 Advance Directives and Living Will 09/27/2022 Health Care Directiv e 04-03-2013 Advance Directives and Living Will 09/27/2022 superseded by 3 HCD; Health Care Directive 02-10-2013 * Full Code (Latest Code Status on File) Date Activated Date Inactivated Comments 06/03/2019 10:53 AM 07/08/2021 2:48 PM Question Answer Comments Code status determined by: Discussion with jaden nt/legal decision maker * Full Code Date Activated Date Inactivated Comments 06/02/2019 10:59 PM 06/03/2019 10:53 AM Question Answer Comments Code status determined by: Discussion with jaden nt/legal decision maker Healthcare Agents on File Name Relationship [facility] [place] Roy Daughter Health Care Agent Roland Pritchard Cousin First Alternate Health Care Agent Care Teams Hotel Or Motel Receptionist Relationship Specialty Start Date End Date Zee Bentley MD [facility] [id number] [place] [id number] PCP - General 10/29/11
--- OUTSIDE RECORDS SUMMARY | 2025-09-04 16:12 | XMS_ITS | Clinical Summary ---
Author Organization [facility] 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 [place] Allergies Active Allergy Reactions Criticality Noted Date [...] IIV3 (Trivalent) F luzone Highdose, 65+ Yrs (84586) 08/05/2018,06/13/2017,07/19/2016,2014,07/04/2014 Influenza IIV4 (Quadrivalent ) Fluad, 65+ [...] Annual Wellness Visit 1944 Dexa 2009 RSV Vaccine (1 - 1-dose 75+ series) 2019 COVID-19 Vaccine ( season) 2025 02/16/2022, 08/10/2021, 01/05/2021, Additional history exists Influenza Vaccine (#1) 2025 , 07/02/2020, 07/02/2020, Additional history exists DTaP/Tdap/Td Vaccine (3 - Tdap) 06/06/2031 06/06/2021, 06/02/2011 Pneumococcal Vaccine 50+ Yrs Completed 09/08/2015, 06/02/2011 Zoster/Shingles Vaccine Completed 07/29/20 18, 05/14/2018, 06/02/2011 HepA Vaccine Aged Out No longer eligi ble based on patient's age to complete this topic HepB Vaccine Aged Out No longer eligi ble based on patient's age to complete this topic Hib Vaccine Aged Out No longer eligi ble based on patient's age to complete this topic MCV4 Vaccine Aged Out No longer eligi ble based on patient's age to complete this topic Meningococcal B Vaccine Aged Out No l onger eligible based on patient's age to complete this topic Insurance [facility] FEDERAL MEDICARE MEDICARE BCBS FEDERAL
--- OUTSIDE RECORDS SUMMARY | 2025-09-04 16:12 | XMS_ITS | Clinical Summary ---
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 0 1 Active vitamin B complex (B COMPLEX 1) tablet Take 1 tablet by mouth once daily. 0 1 Active ORDER - MEDICATION ORDER COMPOSER Citrical 1200mg ER, take one tablet daily 0 1 Active cholecalciferol (VITAMIN D) 1,000 unit tablet Take 1 tablet by mouth once daily. 0 1 Active Blood Pressure Test Kit-Large kit 0 Active Cranberry 400 mg capsuleIndications: Recurrent UTI Take 1 Capsule (400 mg) by mouth 2 times daily at 7 AM and Noon. 1 Capsule 1 Active acetaminophen SR (TYLENOL ARTHRITIS) 650 mg Extended-Release tabletIndications:P rimary osteoarthritis of right knee TAKE TWO TABLETS (1300MG) BY MOUTH TWICE DAILY NEEDED 60 Tablet 97 3 Active lidocaine 4 % topical patchIndications:Pr imary osteoarthritis of right knee,Multiple joint pain APPLY 1 PATCH ONTO THE RIGHT KNEE ONCE DAILY;& APPLY 1 PATCH ONTO PAINFUL AREA OF BACK ONCE DAILY NEEDED (ON FOR 12 HOURS, OFF FOR 12 HOURS) (PATIENT MAY SELF APPLY) 15 Patch 25 3 Active diphenhydrAMINE-heike taminophen 25-500 mg (acetaminophen PM) 25-500 mg tabletIndications:I nsomnia, idiopathic TAKE ONE TO TWO TABLETS BY MOUTH 1 HOUR PRIOR TO BEDTIME (MAY LEAVE IN ROOM TO SELF ADMINISTER) 60 Tablet 11 4 Active fluticasone (50 mcg per actuation) nasal solution (FLONASE)Indication s:Nasal congestion INHALE 1 SPRAY IN EACH NOSTRIL TWICE DAILY NEEDED FOR RHINITIS (OK TO SELF ADMINISTER) 16 g 11 4 Active aspirin (ECOTRIN) 81 mg enteric coated tabletIndications:H TN (hypertension) TAKE 1 TABLET BY MOUTH ONCE DAILY 90 Tablet 3 5 Active alendronate (FOSAMAX) 35 mg tabletIndications:O steoporosis, unspecified osteoporosis type, unspecified pathological fracture presence Take 1 Tablet (35 mg) by mouth once a week in the morning. Take on empty stomach with full glass of water. Do not lie down for 1 hr. 12 Tablet 3 5 Active levothyroxine (SYNTHROID) 88 mcg tabletIndications:H ypothyroidism, unspecified type Take 1 Tablet (88 mcg) by mouth before breakfast. 90 Tablet 3 5 Active lisinopriL (PRINIVIL; ZESTRIL) 10 mg tabletIndications:H TN (hypertension) Take 1 Tablet (10 mg) by mouth once daily. 90 Tablet 3 5 Active metoprolol tartrate (LOPRESSOR) 25 mg tabletIndications:H TN (hypertension) Take 1 Tablet (25 mg) by mouth two times daily. 180 Tablet 5 Active Cinnamon Bark (Cinnamon) 500 mg capsule Take 500 mg by mouth. 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 150 mL 2 5 Active Active Problems Problem Noted Date Diagnosed [...] 2023. Vertigo 06/02/2019 Colon polyps 11/25/2015 Overview (11/25/2015): 2 on colonoscopy 11/2015; repeat in 2020 Advance care planning 04/04/2013 Overview (10/19/2022): POLST done October 18, 2022. No CPR. Some intervention. No feeding tube. Assessment & Plan (04/04/2013 8:39 AM CDT): Advance Care Planning: Basic Interview Session Advance Care Planning discussion completed with Vicky Crum at the [facility] on 04/03/2013. Her primary care provider is Dr. Zee Bentley. Patient provided with: Health Care Directive CPR Fact Sheet Information regarding responsibilities of health care agent Booklet: Hard Choices for [place] People Goals and Values: Patient identified factors [...] life : She works out at the [employer] about 3 times or more a week, enjoys reading and belongs to a book club, watches some TV and also belongs to 2 knitting groups. She babysits her grandson and enjoys family activities. She has 2 children, son Darrel in [place] and daughter Lluvia in [place] and has 2 grandchildren. 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 She moved to [facility] from [place] in 2009. Worries and fears about health care : None. Present/past experiences related to illness or : Vicky lost her Pascual from cancer of lung and liver when he was 63. He passed just 4-5 months after diagnosis, dying at home with Hospice care. They had been 44 years. Her mother at age 89 in a penitentiary where she resided for 6 years. She had history of stroke and tells me her mom refused to take medications. She eventually received Hospice care at the end of her life. Her [id number] at 89 dying in her sleep. Treatment [...] able to breathe on her own; no assisted use. Attending physician to discuss situation with my health care agent, yonatan Teixeira. Documents Completed During Advance Care Planning Session: Health Care Agents identified. Primary health care agent is yonatan Roy; secondary health care agent is cousin Roland Pritchard. Health Care Directive completed and scanned [...] being a health care agent to her daughter Lluvia and cousin Roland. Resources identified during advance care planning session that patient may benefit from are: Care Navigation for possible future resource needs. A pleasure to meet with Vicky today and fill out her health care directive. Call if there are questions. Interviewer: Floresita Houston RN CM Advance Care Planning Immigration Specialist [phone] e-mail: [email or web address] 04/03/2013 Preventative health care 08/01/2012 Overview (08/01/2012): [...] 10/19/2022 Overview (12/30/2021): Seen on head MRI. [place] evaluation did not feel she clinically had [...] septal defect No contrast flow seen from hett-pn-fsemc MVP (mitral valve prolapse) 12/01/2010 05/19/2011 Palpitations 08/01/2012 Encounters Date Type Department Care Team Description 08/31/[address] [id number] Zee Bentley MD Form 07/21/[address] [address] Zee Bentley MD Questions (Iron Liquid ) 06/11/[address] [address] Zee Bentley MD RETURN CALL (handicap parking form) from Last 3 Months Immunizations Immunization Administration Dates Next Due COVID-19 vaccine (Pfizer-Bio NTech 30mcg/0.3mL) 12YO+ BIVALENT PF, MDV 07/31/2022 COVID-19 vaccine (Pfizer-Bio NTech 30mcg/0.3mL) PF, MDV 08/10/2021,01/05/2021,12/15/2020 Influenza A (H1N1), Inactivated 11/01/2009 Influenza, High-dose Inactivated 024,07/09/2019,08/05/2018,06/13,07/19/2016,07/20/2015,07/04/2014 Influenza, High-dose Quadriv alent Inactivated 08/09/2023,08/07/2022,07/02/2020 Influenza, [...] 10/05/1995 Smokeless Tobacco: Never Tobacco Cessation:Counseling Given: Not Answered Alcohol Use Standard Drinks/Week Comments Yes 0 (1 standard drink = 0.6 oz pur e alcohol) Glass of white wine occ. PHQ-2 Answer Date Recorded PHQ-2 TOTAL SCORE 0 01/14/2025 Social Connections Answer Date Recorded Do you often feel lonely or isolated from those around you? 0 01/14/2025 Financial Resource Strain Answer Date R ecorded Difficulty of Paying Living Expenses 3 01/14/2025 Difficulty of Paying Living Expenses Not on file 01/14/2025 Food Insecurity Answer Date Recorded Do you worry your food will run out before you are able to buy more? 1 01/14/2025 Transportation Needs Answer Date Record ed Does lack of transportation keep you from medica l appointments? 1 01/14/2025 Does lack of transportation keep you from work, meetings or getting things that you need? 1 01/14/2025 Housing Stability Answer Date Recorded What is your housing situation today? 1 01/14/2025 Utilities Answer Date Recorded Do you have trouble paying f or utilities (for example, heat, electricity, water, phone)? 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 Gender Identity Not on file Sexual Orientation Not on file Obstetrics History Para Term AB IAB SAB Ectopic Multiple Livin g Live Births 2 2 2 2 Date Outcome GA Total Labor Labor/2nd/3rd Weight Sex Type Anes PTL Delores A1 A5 Name Clin Term Term Last Filed Vital Signs Vital Sign Reading Time Taken Comments Blood Pressure 138/80 04/16/2025 2:15 PM CDT Pulse 72 04/16/2025 2:15 PM CDT Temperature 37.1 C (98.7 F) 09/04/2022 2:19 PM CDT Respiratory Rate 16 06/09/2019 2:24 PM CDT Oxygen Saturation 98% 06/02/2019 4:49 PM CDT Inhaled Oxygen Concentration - - Weight 58.5 kg (129 lb) 04/16/2025 2:15 PM CDT Height 156.2 cm (5' 1.5) 01/14/2025 2:10 PM CDT Body Mass Index 23.98 01/14/2025 2:10 PM CDT Plan of Treatment Health Maintenance Due Date Last Done Comments Influenza Vaccine (#1) 2025 , 08/02/2021, 07/02/2020, Additional history exists BMI (ht and wt on same day) for age 18+ 01/14/2026 01/14/2025, 01/04/2024, 09/20/2023, Additional history exists Depression screening for age 12+ 01/14/2026 01/14/2025, 01/07/2024, 01/04/2024, Additional history exists Medicare Wellness for age 65+ 01/15/2026 01/14/2025, 01/04/2024, 01/01/2023, Additional history exists Tetanus booster 06/06/2031 06/06/2021, 05/06, 06/02/2011, Additional history exists Pneumococcal series for age 50+ Completed 09/08/2015, 06/02/2011 Zoster (shingles) series for age 50+ Completed 07/29/2018, 05/14/2018, 06/02/2011 RSV vaccine for adults or Completed 12/05/2023 DEXA/DXA scan for age 65+ Completed 2023, 01/25/2021, 11/20/2017, Additional history exists Hepatitis B series for 19+ Aged Out N o longer eligible based on patient's age to complete this topic Procedures Procedure Name Priority Date/Time Associated Diagnosis [...] 9:31 AM CDT EXAM: BONE DENSITY LOCATION: [facility] [place] DATE: 02/12/2024 INDICATION: BMD screening, follow-up exam. [...] PA - 02/13/2024 EXAM: BONE DENSITY LOCATION: [facility] [place] DATE: 02/12/2024 INDICATION: BMD screening, follow-up exam. 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
--- NOTE | 2025-09-04 16:38 | ED.GENADULT ---
HPI - General Adult General Chief complaint: Chest Pain Stated complaint: Chest pain Time Seen by Provider: 09/04/25 16:24 History of Present Illness HPI narrative: Arrives via EMS with epigastric pain , chest pain, and N/V that started at 0800 today. Arrives awake but keeping eyes closed during triage, oriented times four and answering questions appropriately, VSS, ABCs intact. 80-year-old woman presenting to the emergency department with concern chest pain. Though with further questioning it is more a stomach ache. She does like some resolution this ?stomach ache?. Seems to began with some nausea this morning. Couple episodes of vomiting. No fever. Did have an unremarkable bowel movement this morning. Unsure when she last passed gas. Abdominal surgeries only include hysterectomy. Is not reporting shortness of breath. Does have a history of hyponatremia and coronary artery disease along with history of Amplatzer closure of ASD. She denies alcohol ingestion Related Data Home Medications ?Medication ?Instructions ?Recorded ?Confirmed alendronate 35 mg tablet 35 mg PO QWEEK 12/28/24 09/04/25 aspirin 81 mg tablet,delayed 81 mg PO DAILY 12/28/24 09/04/25 release (Adult Low Dose Aspirin) levothyroxine 88 mcg tablet 88 mcg PO DAILY 12/28/24 09/04/25 lisinopril 10 mg tablet 10 mg PO DAILY 12/28/24 09/04/25 metoprolol tartrate 25 mg tablet 25 mg PO BID 12/28/24 09/04/25 acetaminophen 500 mg tablet 500 - 1,000 mg PO Q6H PRN 09/05/25 09/05/25 benzocaine 5 %-resorcinol 2 % 1 applic topical DAILY PRN 09/05/25 09/05/25 topical cream (Vagisil) calcium ER 600 mg (as carb,cit)-D3 1 tab PO DAILY 09/05/25 09/05/25 12.5 mcg (500 unit) tablet, ext.rel (Citracal-D3 Slow Release) cholecalciferol (vitamin D3) 25 25 mcg PO DAILY 09/05/25 09/05/25 mcg (1,000 unit) capsule cinnamon bark 500 mg capsule 500 mg PO DAILY 09/05/25 09/05/25 (Cinnamon) cranberry 500 mg capsule 500 mg PO BID 09/05/25 09/05/25 diphenhydramine 25 1 - 2 tab PO QHS PRN 09/05/25 09/05/25 mg-acetaminophen 500 mg tablet (Acetadryl) ferrous sulfate 220 mg (44 mg 300 mg PO DAILY 09/05/25 09/05/25 iron)/5 mL oral elixir fluticasone propionate 50 1 spray intranasal BID PRN 09/05/25 09/05/25 mcg/actuation nasal spray,suspension (24 Hour Allergy Relief) lidocaine 4 % topical patch 1 patch topical DAILY 09/05/25 09/05/25 (Aspercreme (lidocaine)) omega 2-pop-wgx-fish oil 1,200 mg 1 cap PO DAILY 09/05/25 09/05/25 (144 mg-216 mg) capsule (Fish Oil) vitamin B complex (Complex B-100 1 tab PO DAILY 09/05/25 09/05/25 tablet,extended release) Allergies Allergy/AdvReac Type Severity Reaction Status Date / Time nitrofurantoin (From Allergy Intermediate Hives Verified 09/04/25 16:17 Macrobid) Review of Systems Status of ROS: Reports: 6 or more systems reviewed and unremarkable except as noted in History and below [facility] Medical History Right ventricular enlargement ?I51.7 - Cardiomegaly (ICD-10) Coronary artery disease ?I25.10 - Atherosclerotic heart disease of [place] coronary artery without angina pectoris (ICD-10) Hydrocephalus ?G91.9 - Hydrocephalus, unspecified (ICD-10) 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 - Aneurysm of carotid artery (ICD-10) Osteoarthritis ?M19.90 - Unspecified osteoarthritis, unspecified site (ICD-10) Osteoporosis ?M81.0 - Age-related osteoporosis without current pathological fracture (ICD-10) Insomnia ?G47.00 - Insomnia, unspecified (ICD-10) Anxiety ?F41.9 - Anxiety disorder, unspecified (ICD-10) Hypothyroidism ?E03.9 - Hypothyroidism, unspecified (ICD-10) Hypertension ?I10 - Essential (primary) hypertension (ICD-10) Surgical History H/O abdominal hysterectomy ?Z90.710 - Acquired absence of both cervix and uterus (ICD-10) S/P device closure of atrial septal defect ?Z87.74 - Personal history of (corrected) congenital malformations of heart and circulatory system (ICD-10) Social History What is your current living situation?: I presently have a place to live Problems where you live: no known problems Problems where you live details: no known problems In the past 12 months, utilities in danger of being shut off: no In past 12 months, lack of transportation kept you from medical appts, meetings, work, or getting things needed for daily living: no In the past 12 mos, have been you worried that your food would run out before you had money to buy more?: never true In the past 12 mos, the food you bought just didn't last and you didn't have money to buy more?: never true Highest level of school completed/degree received: high school graduate Smoking Status: Former smoker What tobacco products do you use: cigarettes Years smoked: 1 Smoking quit date/years: >15 years ago Second hand tobacco smoke exposure: Yes How often do you have a drink containing alcohol: 4 or more times a week Alcohol type: wine Alcohol type details: half a glass of wine for dinner every night How many standard drinks containing alcohol do you have on a typical day: 1 or 2 How often do you have six or more drinks on one occasion: Never AUDIT-C Alcohol total score: 4 Non-prescribed substance use: denies use Caffeine: Yes How often does anyone, including family, friends and others, physically hurt you: never How often does anyone, including family, friends and others, insult or talk down to you: never How often does anyone, including family, friends and others, threaten you with harm: never How often does anyone, including family, friends and others, scream or curse at you: never service: No Exam Narrative: Exam Narrative: Pleasant. Carefully groomed. Looks as though she feels uncomfortable. Holding an emesis bag. Breathing easily. Heart in elevated rate and regular rhythm I think with some ectopic beats. Trace murmur, systolic. Lungs appear clear. Abdomen is diffusely mildly uncomfortable to palpation, perhaps more so in the epigastrium. No masses appreciated. Is generally little tense. Extremities are without edema. She is well-perfused. Const: Vital Signs, click to edit/add: Vital Signs - 24 hr 09/04/25 16:20 09/04/25 16:33 09/04/25 16:34 Temperature 97.4 F L Pulse Rate Pulse Rate [Pulse Oximeter] 96 Respiratory Rate 20 17 Blood Pressure 109/59 L Blood Pressure [Ri ght Upper Arm] 109/76 Pulse Oximetry 94 Oxygen Delivery Me thod Room Air 09/04/25 17:00 09/04/25 17:01 09/04/25 17:15 Temperature Pulse Rate 97 94 95 Pulse Rate [Pulse Oximeter] Respiratory Rate 15 23 Blood Pressure 122/70 Blood Pressure [Ri ght Upper Arm] Pulse Oximetry 93 94 94 Oxygen Delivery Me thod 09/04/25 17:30 09/04/25 17:31 09/04/25 17:45 Temperature Pulse Rate 104 H 100 99 Pulse Rate [Pulse Oximeter] Respiratory Rate 22 20 Blood Pressure 133/76 Blood Pressure [Ri ght Upper Arm] Pulse Oximetry 95 95 96 Oxygen Delivery Me thod 09/04/25 18:00 09/04/25 18:01 09/04/25 18:02 Temperature Pulse Rate 105 H 102 H 107 H Pulse Rate [Pulse Oximeter] Respiratory Rate 18 20 Blood Pressure 136/74 Blood Pressure [Ri ght Upper Arm] Pulse Oximetry 95 97 95 Oxygen Delivery Me thod 09/04/25 18:15 09/04/25 18:30 09/04/25 18:32 Temperature Pulse Rate 105 H 90 100 Pulse Rate [Pulse Oximeter] Respiratory Rate 16 18 Blood Pressure 160/92 H Blood Pressure [Ri ght Upper Arm] Pulse Oximetry 95 95 98 Oxygen Delivery Me thod Documenting provider has reviewed patient's vital signs: yes Course Vital Signs Vital signs: Initial Vital Signs Temperature 97.4 F L 09/04/25 16:20 Temperature Source Temporal Artery Scan 09/04/25 16:20 Pulse Rate 96 09/04/25 16:20 Respiratory Rate 20 09/04/25 16:20 Blood Pressure 109/76 09/04/25 16:20 Blood Pressure Mean 87 09/04/25 16:20 Pulse Oximetry 94 09/04/25 16:20 Oxygen Delivery Method Room Air 09/04/25 16:20 Vital Signs Temperature 97.4 F L 09/04/25 16:20 Pulse Rate 96 09/04/25 16:20 Respiratory Rate 20 09/04/25 16:20 Blood Pressure 109/76 09/04/25 16:20 Pulse Oximetry 94 09/04/25 16:20 Oxygen Delivery Method Room Air 09/04/25 16:20 Temperature 98.1 F 09/05/25 14:49 Pulse Rate 95 09/05/25 14:49 Respiratory Rate 18 09/05/25 14:49 Blood Pressure 164/82 H 09/05/25 14:49 Pulse Oximetry 95 09/05/25 14:49 Oxygen Delivery Method Room Air 09/05/25 14:49 Medications Administered Medications: Discontinued Medications Generic Name Dose Route Start Last Admin Trade Name Freq PRN Reason Stop Dose Admin Aspirin 81 mg 09/05/25 09:00 09/05/25 09:25 Aspirin 81 Mg Tablet Ec PO 81 mg DAILY ROSAURA Administration Enoxaparin Sodium 30 mg 09/05/25 09:00 09/05/25 09:26 Enoxaparin 30 Mg/0.3ml Inj SUBCUT 30 mg DAILY ROSAURA Administration Sodium Chloride 1,000 mls @ 1,000 mls/hr 09/04/25 16:46 09/04/25 20:22 0.9 % Sodium Chloride 1000 Ml IV 09/04/25 17:45 Infused .Q1H ONE Infusion Sodium Chloride 1,000 mls @ 75 mls/hr 09/04/25 21:02 09/05/25 09:16 0.9 % Sodium Chloride 1000 Ml IV 0 mls/hr .[id number] ROSAURA Infusion Sodium Chloride 1,000 mls @ 150 mls/hr 09/05/25 08:12 09/05/25 13:50 0.9 % Sodium Chloride 1000 Ml IV 150 mls/hr .[id number] ROSAURA Infusion Sodium Chloride 1,000 mls @ 1,000 mls/hr 09/05/25 09:00 09/05/25 09:15 0.9 % Sodium Chloride 1000 Ml IV 09/05/25 09:59 500 mls/hr .Q1H ROSARUA Administration Ceftriaxone Sodium 1 gm/ 100 mls @ 200 mls/hr 09/05/25 09:30 09/05/25 12:09 Sodium Chloride IVPB Infused Q24H ROSAURA Infusion Metronidazole 500 mg in 100 mls @ 100 mls/hr 09/05/25 10:00 09/05/25 14:35 Metronidazole IVPB Infused Q8H ROSAURA Infusion Ketorolac Tromethamine 15 mg 09/04/25 18:05 09/04/25 18:15 Ketorolac 15 Mg/Ml Inj IVP 09/04/25 18:06 15 mg ONCE ONE Administration Levothyroxine Sodium 88 mcg 09/05/25 07:30 09/05/25 09:25 Levothyroxine 88 Mcg Tablet PO 88 mcg 0730 ROSAURA Administration Lidocaine/Aluminum/Magnesium/Simeth 30 ml 09/04/25 18:05 09/04/25 18:13 Gi Cocktail (Visc Lido/Antacid) 30 Ml PO 09/04/25 18:06 30 ml ONCE ONE Administration Metoprolol Tartrate 25 mg 09/04/25 21:02 09/05/25 09:26 Metoprolol Tartrate 25 Mg Tablet PO 25 mg BID ROSAURA Administration Metoprolol Tartrate 5 mg 09/05/25 00:19 09/05/25 00:40 Metoprolol Tartrate 1 Mg/Ml Inj IVP 09/05/25 00:20 5 mg ONCE ONE Administration Morphine Sulfate 4 mg 09/04/25 18:43 09/04/25 18:45 Morphine 4 Mg/Ml Inj IVP 09/04/25 18:44 4 mg ONCE ONE Administration Morphine Sulfate 2 mg 09/04/25 21:02 09/05/25 07:40 Morphine 4 Mg/Ml Inj IVP 2 mg Q1H PRN Administration SEVERE PAIN Morphine Sulfate 2 mg 09/05/25 09:13 09/05/25 10:27 Morphine 2 Mg/Ml Inj IVP 2 mg Q2H PRN Administration SEVERE PAIN Ondansetron HCl 4 mg 09/04/25 16:46 09/04/25 16:58 Ondansetron 2 Mg/Ml Inj IVP 09/04/25 16:47 4 mg ONCE ONE Administration Ondansetron HCl 4 mg 09/04/25 21:02 09/05/25 11:59 Ondansetron 2 Mg/Ml Inj IVP 4 mg Q4H PRN Administration Nausea Sodium Chloride 5 ml 09/04/25 21:02 09/05/25 12:00 Sodium Chloride 0.9 % (Flush) 10 Ml Syringe IVF 5 ml .FLUSH PRN Administration Sodium Chloride 5 ml 09/04/25 21:02 09/05/25 07:41 Sodium Chloride 0.9 % (Flush) 10 Ml Syringe IVF 5 ml BID ROSAURA Administration Medical Decision Making MDM Narrative Medical decision making narrative: Could have simply a gastrointestinal viral bug. This may be some degree of GERD exacerbation as well., gastritis? Does not seem to have lower GI symptoms like enteritis or colitis. This could also represent some cardiac injury. Try to make more comfortable initially with some IV fluids and Zofran. Cholecystitis? Pancreatitis? Pending improvement focus some imaging. Labs showing rather elevated lipase. Though with mild elevation of transaminases and normal alkaline phosphatase. Minimal bilirubin elevation. Zofran helped with nausea. Otherwise given ketorolac which did show some improvement in pain and then 4 mg of morphine has been quite helpful. Given just prior CT imaging. IV contrasted CT imaging of abdomen pelvis independently reviewed by me shows marked inflammatory changes around the pancreas. Radiology over-read below INDICATION: Generalized abdominal pain, pancreatitis TECHNIQUE: CT abdomen and pelvis acquired with 79 cc Omnipaque 350 IV contrast. COMPARISON: December 2024. FINDINGS: Lower chest: Dependent subsegmental atelectasis. Motion. Atherosclerotic and coronary artery calcifications. Atrial septal occlusion device. Partially fluid-filled esophagus. ABDOMEN: Liver: Normal enhancement. No focal suspicious hepatic lesions. Gallbladder and biliary: Mildly distended gallbladder. Dilatation of the bile ducts with common bile duct measuring up to 13 millimeters, previously 7 millimeters. Spleen: Normal size and enhancement. Pancreas: Diffuse peripancreatic inflammatory stranding/fluid. Mild prominence of the main pancreatic duct. No discrete obstructing lesion. Likely partial annular pancreas. No areas of parenchymal non enhancement. Adrenal glands: Normal adrenal glands. Kidneys and ureters: Normal enhancement. No radio-opaque calculi. No hydroureteronephrosis. Subcentimeter hypodensities are too small to characterize however statistically represent cysts. GI tract: Small hiatal hernia. Stomach is partially distended with fluid. Normal caliber small and large bowel loops. Normal appendix. Colonic diverticulosis without diverticulitis. Vascular structures: Normal caliber aorta with atherosclerotic calcifications. Lymph nodes: No lymphadenopathy in the abdomen or pelvis by size criteria. Peritoneum: Free fluid tracking inferiorly along the pericolic gutters into the pelvis. No acute pancreatic fluid collections. PELVIS: Genitourinary system: Normal urinary bladder. Hysterectomy. SKELETAL STRUCTURES AND SOFT TISSUES: No suspicious lytic or blastic lesions. IMPRESSION: 1. Acute pancreatitis. No acute pancreatic fluid collections. No parenchymal non enhancement. 2. New gallbladder distention and biliary ductal dilatation with smooth distal tapering likely secondary to underlying pancreatic parenchymal edema. Please note that all CT scans at this facility use dose modulation, iterative reconstruction, and/or weight-based dosing when appropriate to reduce radiation dose to as low as reasonably achievable. Dictated by Mukesh Tang MD @ 09/04/2025 7:27:35 PM Point of care ultrasound by myself over the gallbladder appears to show some sludge. Enlarged gallbladder. This is not a tender exam; negative Flower's. I do not see any stones. May still have retained ductal stone. Will yet need formal ultrasound. Discussed with hospitalist for admission. As requested have ordered formal ultrasound Medical Records Medical records reviewed: Yes I reviewed the patient's medical records Lab Data Lab results reviewed: Yes I reviewed the patient's lab results Labs: Lab Results 09/04/25 09/04/25 09/04/25 Range/Units 16:59 17:00 18:12 WBC 11.92 H (4.50-11.00) K/uL RBC 3.97 L (4.00-5.20) m/uL Hgb 12.8 (12.0-16.0) gm/dL Hct 38.2 (33.0-51.0) % MCV 96 (80-100) fL MCH 32 (26-34) pg MCHC 34 (32-36) gm/dL RDW Coeff of Juliann 15.3 (11.5-15.5) % Plt Count 319 (140-440) K/uL Neut % (Auto) 90.0 H (42.0-72.0) % Lymph % (Auto) 3.8 L (20-44) % Nolan % (Auto) 6.0 (0.0-11.0) % Eos % (Auto) 0.0 (0.0-7.0) % Baso % (Auto) 0.0 (0.0-3.0) % Neut # (Auto) 10.70 H (1.7-7.0) K/uL Lymph # (Auto) 0.50 L (0.90-2.90) K/uL Nolan # (Auto) 0.70 (0.00-0.90) K/UL Eos # (Auto) 0.00 (0.00-0.50) K/uL Baso # (Auto) 0.00 (0.00-0.30) K/uL Abs Immat Gran (auto) 0.00 (0.00-0.30) K/uL Imm/Tot Granulo (auto) 0.2 % Sodium 130 L (135-149) mmol/L Potassium 3.7 (3.6-5.1) mmol/L Chloride 98 (96-114) mmol/L Carbon Dioxide 24 (20-32) mmol/L Anion Gap 8 (7-15) mEq/L BUN 14 (7-30) mg/dL Creatinine 0.6 (0.5-1.5) mg/dL Estimated GFR 90 ml/min Glucose 141 H (60-115) mg/dL Calcium 9.0 (8.4-10.6) mg/dL Total Bilirubin 1.1 (0.1-1.5) mg/dL Direct Bilirubin 0.5 (0.0-0.5) mg/dL AST 81 H (12-35) U/L ALT 45 H (4-35) U/L Alkaline Phosphatase 55 (40-150) U/L Troponin I < 0.01 (0.01-0.04) ng/mL C-Reactive Protein < 0.5 L (0.5-1.0) mg/dL Total Protein 6.3 (6.0-8.3) g/dL Albumin 4.0 (3.3-5.0) g/dL Lipase 75344 H (23-300) U/L Ethyl Alcohol < 0.01 (0.01-0.03) % SARS-CoV-2 (PCR) Negative SARS-CoV-2 (Negative) Influenza Type A (PCR) Negative PCR FLU A (Negative) Influenza Type B (PCR) Negative PCR FLU B (Negative) Lab Acknowledgement Test Added POC Troponin I 0.02 (0.01-0.04) ng/ml 09/04/25 Range/Units 19:07 WBC (4.50-11.00) K/uL RBC (4.00-5.20) m/uL Hgb (12.0-16.0) gm/dL Hct (33.0-51.0) % MCV (80-100) fL MCH (26-34) pg MCHC (32-36) gm/dL RDW Coeff of Juliann (11.5-15.5) % Plt Count (140-440) K/uL Neut % (Auto) (42.0-72.0) % Lymph % (Auto) (20-44) % Nolan % (Auto) (0.0-11.0) % Eos % (Auto) (0.0-7.0) % Baso % (Auto) (0.0-3.0) % Neut # (Auto) (1.7-7.0) K/uL Lymph # (Auto) (0.90-2.90) K/uL Nolan # (Auto) (0.00-0.90) K/UL Eos # (Auto) (0.00-0.50) K/uL Baso # (Auto) (0.00-0.30) K/uL Abs Immat Gran (auto) (0.00-0.30) K/uL Imm/Tot Granulo (auto) % Sodium (135-149) mmol/L Potassium (3.6-5.1) mmol/L Chloride (96-114) mmol/L Carbon Dioxide (20-32) mmol/L Anion Gap (7-15) mEq/L BUN (7-30) mg/dL Creatinine (0.5-1.5) mg/dL Estimated GFR ml/min Glucose (60-115) mg/dL Calcium (8.4-10.6) mg/dL Total Bilirubin (0.1-1.5) mg/dL Direct Bilirubin (0.0-0.5) mg/dL AST (12-35) U/L ALT (4-35) U/L Alkaline Phosphatase (40-150) U/L Troponin I (0.01-0.04) ng/mL C-Reactive Protein (0.5-1.0) mg/dL Total Protein (6.0-8.3) g/dL Albumin (3.3-5.0) g/dL Lipase (23-300) U/L Ethyl Alcohol (0.01-0.03) % SARS-CoV-2 (PCR) (Negative) Influenza Type A (PCR) (Negative) Influenza Type B (PCR) (Negative) Lab Acknowledgement Test Added POC Troponin I (0.01-0.04) ng/ml ECG Data Attestation: I personally reviewed and interpreted this ECG as follows: (Normal sinus rhythm. Rate of 93) Discharge Plan Discharge Clinical Impression: Pancreatitis, Abdominal pain Patient Disposition: Admitted As Inpatient Condition: Stable
[2025-09-04] MEDS: ONDANSETRON 2 MG/ML inj 4 MG IVP ×2 (16:58→21:24)
[2025-09-04 17:15] LABS: Troponin, Point-of-Care* 0.02 ng/ml (0.01-0.04)
[2025-09-04 17:42] LABS: Albumin* 4.0 g/dL (3.3-5.0); Chloride* 98 mmol/L (96-114)
[2025-09-04 17:43] LABS: Potassium* 3.7 mmol/L (3.6-5.1); Sodium* 130 mmol/L (135-149)
[2025-09-04 17:45] LABS: Blood Urea Nitrogen* 14 mg/dL (7-30); Creatinine* 0.6 mg/dL (0.5-1.5); Estimated Glomerular Filt Rate 90 ml/min
[2025-09-04 17:46] LABS: Alanine Aminotransferase* 45 U/L (4-35); Alkaline Phosphatase* 55 U/L (40-150); Anion Gap 8 mEq/L (7-15); Aspartate Amino Transferase* 81 U/L (12-35); Bilirubin Direct* 0.5 mg/dL (0.0-0.5); Bilirubin Total* 1.1 mg/dL (0.1-1.5); Calcium* 9.0 mg/dL (8.4-10.6); Carbon Dioxide* 24 mmol/L (20-32); Glucose* 141 mg/dL (60-115); Total Protein* 6.3 g/dL (6.0-8.3)
[2025-09-04 17:47] LABS: PCR FLU A Negative PCR FLU A (Negative); PCR FLU B Negative PCR FLU B (Negative); SARS PCR* Negative SARS-CoV-2 (Negative)
[2025-09-04] MEDS: GI COCKTAIL (VISC LIDO/ANTACID) 30 ML PO (18:13)
--- NOTE | 2025-09-04 18:27 | CRLHL7_ITS ---
For Patients: As a result of the Century Cures Act, medical imaging exams and procedure reports are released immediately into your electronic medical record. You may view this report before your referring provider. If you have questions, please contact your health care provider. INDICATION: Generalized abdominal pain, pancreatitis TECHNIQUE: CT abdomen and pelvis acquired with 79 cc Omnipaque 350 IV contrast. COMPARISON: December 2024. FINDINGS: Lower chest: Dependent subsegmental atelectasis. Motion. Atherosclerotic and coronary artery calcifications. Atrial septal occlusion device. Partially fluid-filled esophagus. ABDOMEN: Liver: Normal enhancement. No focal suspicious hepatic lesions. Gallbladder and biliary: Mildly distended gallbladder. Dilatation of the bile ducts with common bile duct measuring up to 13 millimeters, previously 7 millimeters. Spleen: Normal size and enhancement. Pancreas: Diffuse peripancreatic inflammatory stranding/fluid. Mild prominence of the main pancreatic duct. No discrete obstructing lesion. Likely partial annular pancreas. No areas of parenchymal non enhancement. Adrenal glands: Normal adrenal glands. Kidneys and ureters: Normal enhancement. No radio-opaque calculi. No hydroureteronephrosis. Subcentimeter hypodensities are too small to characterize however statistically represent cysts. GI tract: Small hiatal hernia. Stomach is partially distended with fluid. Normal caliber small and large bowel loops. Normal appendix. Colonic diverticulosis without diverticulitis. Vascular structures: Normal caliber aorta with atherosclerotic calcifications. Lymph nodes: No lymphadenopathy in the abdomen or pelvis by size criteria. Peritoneum: Free fluid tracking inferiorly along the pericolic gutters into the pelvis. No acute pancreatic fluid collections. PELVIS: Genitourinary system: Normal urinary bladder. Hysterectomy. SKELETAL STRUCTURES AND SOFT TISSUES: No suspicious lytic or blastic lesions. IMPRESSION: 1. Acute pancreatitis. No acute pancreatic fluid collections. No parenchymal non enhancement. 2. New gallbladder distention and biliary ductal dilatation with smooth distal tapering likely secondary to underlying pancreatic parenchymal edema. Please note that all CT scans at this facility use dose modulation, iterative reconstruction, and/or weight-based dosing when appropriate to reduce radiation dose to as low as reasonably achievable. Dictated by Mukesh Tang MD @ 09/04/2025 7:27:35 PM (Electronically Signed)
[2025-09-04 18:31] LABS: Hematocrit* 38.2 % (33.0-51.0); Hemoglobin* 12.8 gm/dL (12.0-16.0); Immature Granulocytes Pct Auto 0.2 %; Mean Corpuscular HGB Conc 34 gm/dL (32-36); Mean Corpuscular Hemoglobin 32 pg (26-34); Mean Corpuscular Volume 96 fL (80-100); RDW Coefficient of Variation % 15.3 % (11.5-15.5); Red Blood Count* 3.97 m/uL (4.00-5.20); White Blood Count* 11.92 K/uL (4.50-11.00)
[2025-09-04 18:34] LABS: Immature Granulocytes Abs Auto 0.00 K/uL (0.00-0.30); Lymphocytes Absolute Auto 0.50 K/uL (0.90-2.90); Slide Review Reflex No
[2025-09-04] MEDS: MORPHINE 4 MG/ML INJ IVP (18:45)
[2025-09-04 19:19] LABS: Ethanol* < 0.01 % (0.01-0.03)
--- NOTE | 2025-09-04 19:58 | CRLHL7_ITS ---
For Patients: As a result of the Century Cures Act, medical imaging exams and procedure reports are released immediately into your electronic medical record. You may view this report before your referring provider. If you have questions, please contact your health care provider. INDICATION: Pancreatitis with marked biliary distention TECHNIQUE: Ultrasound abdomen limited. Sonographic images of the gallbladder were obtained using cedeno-scale and color Doppler images. COMPARISON: CT, September 04, 2025. FINDINGS: Gallbladder: Mildly distended gallbladder with biliary sludge. No stones. Normal wall thickness. No pericholecystic fluid. Negative sonographic Flower`s sign. Common bile duct: 10 mm. IMPRESSION: Enlarged common bile duct, measuring 10 millimeters. No choledocholithiasis in the visualized common bile duct. Distal obstructing stone not excluded. Recommend correlation with LFTs, including direct bilirubin. If there is persistent clinical concern for biliary obstruction, consider MRCP. Mildly distended gallbladder with biliary sludge. No stones. Dictated by Marty Buck MD @ 09/04/2025 10:45:24 PM (Electronically Signed)
--- NOTE | 2025-09-04 20:57 | PM.IMHP1 ---
Assessment and Plan Assessment and plan (1) Pancreatitis: Problem comment: 09/04/2025: - presents with epigastric pain, nausea vomiting times less than 24 hours - differential diagnosis include alcohol associated pancreatitis, hepatobiliary associated pancreatitis, verses other. Given that she drinks a half a glass of wine daily I am more inclined to believe it is the alcohol associated pancreatitis without necessarily having alcohol use disorder. - limited ultrasound of abdomen ordered to further assess biliary tract, and consider consultation with General surgery if there is concern for gallstone pancreatitis - lipid panel ordered - normal saline IV fluid, clear liquids as tolerated and advanced tolerate diet as tolerated, analgesics as needed, antiemetics as needed, monitor response, vitals, labs Status: Acute (2) Coronary artery disease: Problem comment: - Coronary CTA in August 2011 showed nonobstructive coronary disease - asymptomatic, metoprolol tartrate 25 mg p.o. b.i.d. Status: Acute (3) Hypertension: Problem comment: - medically managed with lisinopril 10 mg daily and metoprolol tartrate 25 mg p.o. b.i.d. - continue the same while in hospital Status: Acute (4) Age-related physical debility: Problem comment: - PT, OT to assess and assist while in hospital Status: Acute Plan 1. Reviewed my impression, plans, recommendations with patient and her daughter, Lluvia 2. Answered their questions to their satisfaction 3. Continue with other supportive efforts and consult with health and social care teacher to assist with discharge disposition planning 4. They are agreeable with above stated plans and recommendations Total Time Spent Total Time Spent: 70 minutes Hospitalist- H&P: HPI History of Present Illness Date Seen: 09/04/25 Chief complaint: Epigastric pain Narrative: Vicky Crum is a 80 year old woman who resides in the assisted living facility called [facility] and presents today to the [facility] Emergency Department for assessment of progressively increasing epigastric pain and nausea and vomiting since this morning. She was in her usual state of health yesterday. No trauma, injury, fevers, rigors, diaphoresis, illness of any sort, travel, blood loss of any sort. Awoke this morning feeling well but as the morning evolved she noted the onset of epigastric discomfort that gradually progressed throughout the course the day. During the course of the day she started to have a sense of nausea and later on had couple of episodes of vomiting as well. No hematemesis. Minimal oral intake throughout the day. No diarrhea or constipation. Denies dysuria, urgency, frequency, hematuria. On assessment in the emergency department today she had mild epigastric discomfort with palpation. Mild to moderate elevation of AST and ALT at 81 in 45 respectively. Normal total bilirubin and direct bilirubin and alkaline phosphatase. Lipase elevated at 15,[address] scan of abdomen and pelvis demonstrated diffuse peripancreatic inflammation with stranding and fluid. Mild prominence of main pancreatic duct. No discrete obstructing lesion. Mildly distended gallbladder. Dilatation of bile ducts with common bile duct measuring up to of 13 mm, previously 7 mm. There is smooth distal tapering of the biliary duct suggestive of underlying pancreatic parenchymal edema. No obvious gallstones or sludge noted on the CT scan. Patient acknowledges she consumes about 1/2 glass of wine at bedtime. Does not consume any additional alcohol beyond this. Denies alcohol withdrawal symptoms. No prior history of gallstones or gallbladder surgery. Denies medical therapy for hyperlipidemia or hypertriglyceridemia. Known to have atherosclerotic calcifications of the aorta and coronaries. Review of Systems Status of ROS: Reports: 10 or more systems reviewed and unremarkable except as noted in History and below Narrative: Generally happy and healthy in her home with support from the assisted living facility and her daughter, Lluvia. It is becoming increasingly more challenging for her to transfer and ambulate without assist and without becoming somewhat anxious about it. Utilizes her walker to help her. Tells me she exercises regularly with others in the assisted living facility. No recent falls. Denies angina or anginal equivalent, syncope or near syncope, diaphoresis, dyspnea at rest, paroxysmal nocturnal dyspnea, orthopnea. Denies dependent edema. Takes her medications as prescribed. Medical Decision Making Medical Decision Making Code Status: DNR DNI resuscitation status. Has patient completed a Health Care Directive: No During This Stay, Who Would You Like To Make Decisions For You In The Event You Are Unable To Make Them For Yourself?: Designates her daughter, Lluvia Roy, as her spokesperson to make healthcare decisions on her behalf if she is unable to speak on her own behalf. Lluvia's cell phone number is [phone]. Relevant situational information: She is active in her tonya. 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 - Aneurysm of carotid artery (ICD-10) Osteoarthritis ?M19.90 - Unspecified osteoarthritis, unspecified site (ICD-10) Osteoporosis ?M81.0 - Age-related osteoporosis without current pathological fracture (ICD-10) Insomnia ?G47.00 - Insomnia, unspecified (ICD-10) Anxiety ?F41.9 - Anxiety disorder, unspecified (ICD-10) Hypothyroidism ?E03.9 - Hypothyroidism, unspecified (ICD-10) Hypertension ?I10 - Essential (primary) hypertension (ICD-10) Surgical History H/O abdominal hysterectomy ?Z90.710 - Acquired absence of both cervix and uterus (ICD-10) S/P device closure of atrial septal defect ?Z87.74 - Personal history of (corrected) congenital malformations of heart and circulatory system (ICD-10) Social History What is your current living situation?: I presently have a place to live Problems where you live: no known problems Problems where you live details: no known problems In the past 12 months, utilities in danger of being shut off: no In past 12 months, lack of transportation kept you from medical appts, meetings, work, or getting things needed for daily living: no In the past 12 mos, have been you worried that your food would run out before you had money to buy more?: never true In the past 12 mos, the food you bought just didn't last and you didn't have money to buy more?: never true Smoking Status: Former smoker What tobacco products do you use: cigarettes Years smoked: 1 Smoking quit date/years: >15 years ago Second hand tobacco smoke exposure: No How often do you have a drink containing alcohol: 4 or more times a week Alcohol type: wine Alcohol type details: pt reports half a glass of white wine with dinner How many standard drinks containing alcohol do you have on a typical day: 1 or 2 How often do you have six or more drinks on one occasion: Never AUDIT-C Alcohol total score: 4 Non-prescribed substance use: denies use Caffeine: No How often does anyone, including family, friends and others, physically hurt you: never How often does anyone, including family, friends and others, insult or talk down to you: never How often does anyone, including family, friends and others, threaten you with harm: never How often does anyone, including family, friends and others, scream or curse at you: never service: No Meds Home Medications and Allergies Home Medications ?Medication ?Instructions ?Recorded ?Confirmed ?Type alendronate 35 mg tablet 35 mg PO QWEEK 12/28/24 09/04/25 History aspirin 81 mg tablet,delayed 81 mg PO DAILY 12/28/24 09/04/25 History release (Adult Low Dose Aspirin) fluticasone furoate 50 1 inh inhalation PRN 12/28/24 History mcg/actuation blister powder for inhalation levothyroxine 88 mcg tablet 88 mcg PO DAILY 12/28/24 09/04/25 History lisinopril 10 mg tablet 10 mg PO DAILY 12/28/24 09/04/25 History metoprolol tartrate 25 mg tablet 25 mg PO BID 12/28/24 09/04/25 History mirtazapine 15 mg tablet 15 mg PO QHS 12/28/24 09/04/25 History Home Medication Comments: No longer takes mirtazapine, fluticasone inhaler Allergies Allergy/AdvReac Type Severity Reaction Status Date / Time nitrofurantoin (From Allergy Intermediate Hives Verified 09/04/25 16:17 Macrobid) Exam Narrative: Exam Narrative: Examined patient in the emergency department. By the time I see her she appears more comfortable and in no acute distress status post administration of analgesics and antiemetics. Alert and oriented x4. Talkative, articulate, cooperative, friendly. Vision and hearing are adequate. No icterus or jaundice. Appears pale in complexion. Thin with cachectic features. Midline nasal septum. Dentition in fair repair. Dry buccal mucosa. Cranial nerves 3-12 grossly normal. Neck is supple. No JVD or hepatojugular reflux. No head neck lymphadenopathy. Lungs are clear to auscultation without wheezing, rhonchi, rales. Chest wall excursions are full. No CVA tenderness with thumping of her back. Heart tones with regular rhythm, normal S1-S2, with grade 1/6 systolic murmur, without gallop or rub. PMI is not laterally displaced. Abdomen is thin with active bowel sounds. Subjective discomfort to palpation epigastrium without rebound or guarding. Thin upper and lower extremities with muscle atrophy. No lower extremity edema. Palpable pulses upper and lower extremities. Needs assist of 1 for transfers and ambulation with walker. Stooped forward posture with kyphosis. No focal motor neurologic deficits. Const: Vital Signs, click to edit/add: Vital Signs - 24 hr 09/04/25 16:20 09/04/25 16:33 09/04/25 16:34 Temperature 97.4 F L Pulse Rate Pulse Rate [Pulse Oximeter] 96 Respiratory Rate 20 17 Blood Pressure 109/59 L Blood Pressure [Ri ght Upper Arm] 109/76 Pulse Oximetry 94 Oxygen Delivery Me thod Room Air 09/04/25 17:00 09/04/25 17:01 09/04/25 17:15 Temperature Pulse Rate 97 94 95 Pulse Rate [Pulse Oximeter] Respiratory Rate 15 23 Blood Pressure 122/70 Blood Pressure [Ri ght Upper Arm] Pulse Oximetry 93 94 94 Oxygen Delivery Me thod 09/04/25 17:30 09/04/25 17:31 09/04/25 17:45 Temperature Pulse Rate 104 H 100 99 Pulse Rate [Pulse Oximeter] Respiratory Rate 22 20 Blood Pressure 133/76 Blood Pressure [Ri ght Upper Arm] Pulse Oximetry 95 95 96 Oxygen Delivery Me thod 09/04/25 18:00 09/04/25 18:01 09/04/25 18:02 Temperature Pulse Rate 105 H 102 H 107 H Pulse Rate [Pulse Oximeter] Respiratory Rate 18 20 Blood Pressure 136/74 Blood Pressure [Ri ght Upper Arm] Pulse Oximetry 95 97 95 Oxygen Delivery Me thod 09/04/25 18:15 09/04/25 18:30 09/04/25 18:32 Temperature Pulse Rate 105 H 90 100 Pulse Rate [Pulse Oximeter] Respiratory Rate 16 18 Blood Pressure 160/92 H Blood Pressure [Ri ght Upper Arm] Pulse Oximetry 95 95 98 [facility] - [facility]: Result Labs Labs: Short CBC 09/04/25 Range/Units 16:59 WBC 11.92 H (4.50-11.00) K/uL Hgb 12.8 (12.0-16.0) gm/dL Hct 38.2 (33.0-51.0) % Plt Count 319 (140-440) K/uL BMP 09/04/25 16:59 Sodium 130 L Potassium 3.7 Chloride 98 Carbon Dioxide 24 BUN 14 Creatinine 0.6 Glucose 141 H Calcium 9.0 Cardiac Enzymes 09/04/25 Range/Units 16:59 Troponin I < 0.01 (0.01-0.04) ng/mL Liver Function 09/04/25 Range/Units 16:59 Total Bilirubin 1.1 (0.1-1.5) mg/dL Direct Bilirubin 0.5 (0.0-0.5) mg/dL AST 81 H (12-35) U/L ALT 45 H (4-35) U/L Alkaline Phosphatase 55 (40-150) U/L Albumin 4.0 (3.3-5.0) g/dL ECG ECG interpretation date: 09/04/25 Interpretation: Normal sinus rhythm. Imaging CT of abdomen and pelvis: Attestation: I have reviewed the pertinent imaging results. Radiologist's impression: FINDINGS: Lower chest: Dependent subsegmental atelectasis. Motion. Atherosclerotic and coronary artery calcifications. Atrial septal occlusion device. Partially fluid-filled esophagus. ABDOMEN: Liver: Normal enhancement. No focal suspicious hepatic lesions. Gallbladder and biliary: Mildly distended gallbladder. Dilatation of the bile ducts with common bile duct measuring up to 13 millimeters, previously 7 millimeters. Spleen: Normal size and enhancement. Pancreas: Diffuse peripancreatic inflammatory stranding/fluid. Mild prominence of the main pancreatic duct. No discrete obstructing lesion. Likely partial annular pancreas. No areas of parenchymal non enhancement. Adrenal glands: Normal adrenal glands. Kidneys and ureters: Normal enhancement. No radio-opaque calculi. No hydroureteronephrosis. Subcentimeter hypodensities are too small to characterize however statistically represent cysts. GI tract: Small hiatal hernia. Stomach is partially distended with fluid. Normal caliber small and large bowel loops. Normal appendix. Colonic diverticulosis without diverticulitis. Vascular structures: Normal caliber aorta with atherosclerotic calcifications. Lymph nodes: No lymphadenopathy in the abdomen or pelvis by size criteria. Peritoneum: Free fluid tracking inferiorly along the pericolic gutters into the pelvis. No acute pancreatic fluid collections. PELVIS: Genitourinary system: Normal urinary bladder. Hysterectomy. SKELETAL STRUCTURES AND SOFT TISSUES: No suspicious lytic or blastic lesions. IMPRESSION: 1. Acute pancreatitis. No acute pancreatic fluid collections. No parenchymal non enhancement. 2. New gallbladder distention and biliary ductal dilatation with smooth distal tapering likely secondary to underlying pancreatic parenchymal edema.
[2025-09-04] MEDS: MORPHINE 4 MG/ML INJ 2 MG IVP (21:24)
[2025-09-04] MEDS: SODIUM CHLORIDE 0.9 % (FLUSH) 10 ML SYRINGE 5 ML IVF (21:24)
[2025-09-05] VITALS (7 sets, daily range): BP systolic 155–167; BP diastolic 82–102; PULSE 95–98; RESP 16–18; TEMP 36.3–36.9; O2SAT 93–97
[2025-09-05] MEDS: METOPROLOL TARTRATE 1 MG/ML inj 5 MG IVP (00:40)
[2025-09-05] MEDS: SODIUM CHLORIDE 0.9 % (FLUSH) 10 ML SYRINGE 5 ML IVF ×7 (00:40→12:00)
[2025-09-05] MEDS: MORPHINE 4 MG/ML INJ 2 MG IVP ×4 (00:57→07:40)
[2025-09-05] MEDS: ONDANSETRON 2 MG/ML inj 4 MG IVP ×2 (04:27→11:59)
--- NOTE | 2025-09-05 06:33 | PC.NURSE ---
Addendum entered by Jennifer Keenan RN 09/05/25 07:30: Pt reports nausea throughout night, managed with PRN medication. Pt dry heaving after any type of PO such as ICE chips, x1 emesis on admission and dry heaving and pt spits out sputum. Original Note: Pt alert and oriented x3. Afebrile. Pt reports 8-10/10 pain in abdomen, managed with PRN medication. Pt is up A1/2 with walker and gait belt and tolerating an NPO diet since 0000. Pt had low urine output overnight called and updated MD Davila ([facility]) no new orders given and continue plan of care. ?
[2025-09-05 06:51] LABS: Hematocrit* 39.3 % (33.0-51.0); Hemoglobin* 13.3 gm/dL (12.0-16.0); Mean Corpuscular HGB Conc 34 gm/dL (32-36); Mean Corpuscular Hemoglobin 32 pg (26-34); Mean Corpuscular Volume 95 fL (80-100); Red Blood Count* 4.12 m/uL (4.00-5.20); White Blood Count* 10.89 K/uL (4.50-11.00)
[2025-09-05 06:53] LABS: Slide Review Reflex No
[2025-09-05 06:56] LABS: HCO3 VBG 24 mmol/L (21-28); Lactate* 1.6 mmol/L (0.5-1.9); PCO2 VBG 39 mmHG (40-50); PO2 VBG 74.7 mmHG (25-47); pH VBG 7.394 (7.32-7.43)
[2025-09-05 07:14] LABS: Chloride* 103 mmol/L (96-114); Potassium* 4.5 mmol/L (3.6-5.1); Sodium* 132 mmol/L (135-149)
[2025-09-05 07:17] LABS: Anion Gap 7 mEq/L (7-15); Blood Urea Nitrogen* 14 mg/dL (7-30); Carbon Dioxide* 22 mmol/L (20-32); Creatinine* 0.5 mg/dL (0.5-1.5); Est. Creatinine Clearance* 33.29; Estimated Glomerular Filt Rate 94 ml/min
[2025-09-05 07:18] LABS: Calcium* 8.1 mg/dL (8.4-10.6); Cholesterol* 163 mg/dL (90-199); Glucose* 147 mg/dL (60-115); HDL Cholesterol* 72 mg/dL (>=50); Triglycerides* 49 mg/dL (40-149)
--- NOTE | 2025-09-05 08:45 | CRLHL7_ITS ---
For Patients: As a result of the Century Cures Act, medical imaging exams and procedure reports are released immediately into your electronic medical record. You may view this report before your referring provider. If you have questions, please contact your health care provider. INDICATION: Difficulty in breathing. COMPARISON: December 28, 2024 TECHNIQUE: Single-view portable AP semi upright study FINDINGS: TUBES AND LINES: None. HEART AND MEDIASTINUM: Enlarged heart.. LUNGS AND PLEURAL SPACES: Mild vascular congestion without overt edema.The pleural spaces are unremarkable. OSSEOUS STRUCTURES: Age-appropriate appearance. No acute focal finding. IMPRESSION: Enlarged heart. Mild vascular congestion without overt edema. Dictated by Shade Grier MD @ 09/05/2025 9:22:23 AM (Electronically Signed)
[2025-09-05] MEDS: LEVOTHYROXINE 88 MCG TABLET PO (09:25)
[2025-09-05] MEDS: ASPIRIN 81 MG TABLET EC PO (09:25)
[2025-09-05] MEDS: METOPROLOL TARTRATE 25 MG TABLET PO (09:26)
[2025-09-05] MEDS: ENOXAPARIN 30 MG/0.3ML INJ SUBCUT (09:26)
--- NOTE | 2025-09-05 09:45 | CRLHL7_ITS ---
For Patients: As a result of the Cures Act, medical imaging exams and procedure reports are released immediately into your electronic medical record. You may view this report before your referring provider. If you have questions, please contact your health care provider. INDICATION: Abdominal pain; pancreatitis; dilated common bile duct. COMPARISON: CT abdomen and pelvis with intravenous contrast September 04, 2025; CT abdomen and pelvis without intravenous contrast 12/28/2024. Technique: MRCP; T1 and T2 weighted imaging; T2 haste imaging. Findings: Significant peripancreatic inflammatory changes indicating acute pancreatitis. No obvious edema within the pancreatic substance. Pancreatic duct measures 3.3 mm in diameter. Dilated extrahepatic common bile duct measuring 12 x 8 mm in diameter with a small filling defect indicating choledocholithiasis. Distended gallbladder without any demonstrable gallstones. No evidence of dilatation of the intrahepatic biliary duct system . Duodenal diverticulum. Small right-sided pleural effusion. IMPRESSION: 1. MR evidence of acute pancreatitis. 2. Dilated extrahepatic common bile duct measuring 12.8 mm in diameter with evidence of small filling defect in the distal duct indicating choledocholithiasis 3. Distended gallbladder without any gallstones 4. Duodenal diverticulum. Dictated by Loraine Stahl MD @ 09/05/2025 2:16:39 PM (Electronically Signed)
[2025-09-05] MEDS: cefTRIAXone 1 GM in 0.9 % SODIUM CHLORIDE Mini-bag 100 ML IVPB (10:55)
[2025-09-05] MEDS: metroNIDAZOLE 500 MG/100 ML PIGGYBACK 100 MG IVPB (11:20)
--- NOTE | 2025-09-05 12:02 | REH.OT ---
OT: Orders received, chart reviewed, OT/PT to hold due to medical status. Will check status tomorrow am.
--- NOTE | 2025-09-05 12:55 | PM.IMPN1 ---
Assessment and Plan Assessment and plan (1) Pancreatitis: Problem comment: 09/04/2025: - presents with epigastric pain, nausea vomiting times less than 24 hours - differential diagnosis include alcohol associated pancreatitis, hepatobiliary associated pancreatitis, verses other. Given that she drinks a half a glass of wine daily I am more inclined to believe it is the alcohol associated pancreatitis without necessarily having alcohol use disorder. - limited ultrasound of abdomen ordered to further assess biliary tract, and consider consultation with General surgery if there is concern for gallstone pancreatitis - lipid panel ordered -09/05: Patient had at low urine output overnight, 1 L normal saline bolus was ordered over 2 hours, and I increased her maintenance fluid rate to 150 mL/hour. I talked to our general surgeon Dr. Karis Reynolds who stated that this patient needs ERCP, as service that we do not have but it is not urgent because her lipase needs to go down. I ordered MRCP for now for more evaluation. Our surgeon recommends calling GI service tomorrow and discuss her new labs tomorrow a.m. in addition to hopefully having her MRCP done to discuss the report with the GI doctor as usually they will ask for MRCP. Status: Acute (2) Coronary artery disease: Problem comment: - Coronary CTA in August 2011 showed nonobstructive coronary disease - asymptomatic, metoprolol tartrate 25 mg p.o. b.i.d. Status: Acute (3) Hypertension: Problem comment: - medically managed with lisinopril 10 mg daily and metoprolol tartrate 25 mg p.o. b.i.d. - continue the same while in hospital Status: Acute (4) Age-related physical debility: Problem comment: - PT, OT to assess and assist while in hospital Status: Acute Total Time Spent Total Time Spent: Today I spent 50 minutes seeing the patient, reviewing Expanse and EPIC notes/diagnostics, discussing the care plan with our care time that includes social work, PT/OT, pharmacy, RT, assisted and documenting my impressions and plan in the medical record. Subjective Date Seen: 09/05/25 Interval history: No acute events overnight. Patient is still having abdominal pain in the morning. On my examination there is no rigidity. Patient had at low urine output overnight, 1 L normal saline bolus was ordered over 2 hours, and I increased her maintenance fluid rate to 150 mL/hour. I talked to our general surgeon Dr. Karis Reynolds who stated that this patient needs ERCP, as service that we do not have but it is not urgent because her lipase needs to go down. I ordered MRCP for now for more evaluation. Our surgeon recommends calling GI service tomorrow and discuss her new labs tomorrow a.m. in addition to hopefully having her MRCP done to discuss the report with the GI doctor as usually they will ask for MRCP. Exam Narrative: Exam Narrative: Physical exam GENERAL: Comfortable, no acute distress. HEAD AND NECK: Atraumatic, normocephalic CARDIOVASCULAR: RRR. Normal S1, S2. No murmurs. RESPIRATORY: Clear to auscultation B/L. Good air entry B/L. No wheezes or rhonchi. GASTROINTESTINAL: Not distended, epigastrium tender to palpation. No rigidity. NEUROLOGY: Alert, awake, oriented X 3. Normal speech. PSYCH: Normal mood, normal affect. Const: Vital Signs, click to edit/add: Vital Signs - 24 hr 09/04/25 16:20 09/04/25 16:33 09/04/25 16:34 Temperature 97.4 F L Pulse Rate Pulse Rate [Pulse Oximeter] 96 Respiratory Rate 20 17 Blood Pressure 109/59 L Blood Pressure [Le ft Arm] Blood Pressure [Ri ght Upper Arm] 109/76 Pulse Oximetry 94 Oxygen Delivery Me thod Room Air 09/04/25 17:00 09/04/25 17:01 09/04/25 17:15 Temperature Pulse Rate 97 94 95 Pulse Rate [Pulse Oximeter] Respiratory Rate 15 23 Blood Pressure 122/70 Blood Pressure [Le ft Arm] Blood Pressure [Ri ght Upper Arm] Pulse Oximetry 93 94 94 Oxygen Delivery Me thod 09/04/25 17:30 09/04/25 17:31 09/04/25 17:45 Temperature Pulse Rate 104 H 100 99 Pulse Rate [Pulse Oximeter] Respiratory Rate 22 20 Blood Pressure 133/76 Blood Pressure [Le ft Arm] Blood Pressure [Ri ght Upper Arm] Pulse Oximetry 95 95 96 Oxygen Delivery Me thod 09/04/25 18:00 09/04/25 18:01 09/04/25 18:02 Temperature Pulse Rate 105 H 102 H 107 H Pulse Rate [Pulse Oximeter] Respiratory Rate 18 20 Blood Pressure 136/74 Blood Pressure [Le ft Arm] Blood Pressure [Ri ght Upper Arm] Pulse Oximetry 95 97 95 Oxygen Delivery Me thod 09/04/25 18:15 09/04/25 18:30 09/04/25 18:32 Temperature Pulse Rate 105 H 90 100 Pulse Rate [Pulse Oximeter] Respiratory Rate 16 18 Blood Pressure 160/92 H Blood Pressure [Le ft Arm] Blood Pressure [Ri ght Upper Arm] Pulse Oximetry 95 95 98 Oxygen Delivery Me thod 09/04/25 21:05 09/04/25 23:00 09/05/25 00:35 Temperature 97.6 F 97.4 F L Pulse Rate Pulse Rate [Pulse Oximeter] 102 H 98 Respiratory Rate 16 16 16 Blood Pressure Blood Pressure [Le ft Arm] 166/91 H 156/90 H Blood Pressure [Ri ght Upper Arm] Pulse Oximetry 98 94 Oxygen Delivery Me thod Room Air Room Air 09/05/25 00:35 09/05/25 03:00 09/05/25 08:06 Temperature 98.4 F Pulse Rate Pulse Rate [Pulse Oximeter] 95 Respiratory Rate 16 16 Blood Pressure Blood Pressure [Le ft Arm] 167/102 H Blood Pressure [Ri ght Upper Arm] Pulse Oximetry 94 97 93 Oxygen Delivery Me thod Room Air Room Air Room Air 09/05/25 08:08 09/05/25 11:00 Temperature 98.3 F 98.3 F Pulse Rate Pulse Rate [Pulse Oximeter] 98 96 Respiratory Rate 16 18 Blood Pressure Blood Pressure [Le ft Arm] 159/86 H 155/88 H Blood Pressure [Ri ght Upper Arm] Pulse Oximetry 93 95 Oxygen Delivery Me thod Room Air Room Air Labs Labs: Laboratory Results - last 24 hr 09/04/25 09/04/25 09/04/25 16:59 17:00 18:12 WBC 11.92 H RBC 3.97 L Hgb 12.8 Hct 38.2 MCV 96 MCH 32 MCHC 34 RDW Coeff of [place] 15.3 Plt Count 319 Neut % (Auto) 90.0 H Lymph % (Auto) 3.8 L [place] % (Auto) 6.0 Eos % (Auto) 0.0 Baso % (Auto) 0.0 Neut # (Auto) 10.70 H Lymph # (Auto) 0.50 L [place] # (Auto) 0.70 Eos # (Auto) 0.00 Baso # (Auto) 0.00 Abs Immat Gran (auto) 0.00 Imm/Tot Granulo (auto) 0.2 VBG pH VBG pCO2 VBG pO2 VBG HCO3 Sodium 130 L Potassium 3.7 Chloride 98 Carbon Dioxide 24 Anion Gap 8 BUN 14 Creatinine 0.6 Estimated Creat Clear Estimated GFR 90 Glucose 141 H Lactate Calcium 9.0 Phosphorus Magnesium Total Bilirubin 1.1 Direct Bilirubin 0.5 AST 81 H ALT 45 H Alkaline Phosphatase 55 Troponin I < 0.01 C-Reactive Protein < 0.5 L Total Protein 6.3 Albumin 4.0 Triglycerides Cholesterol LDL Cholesterol, Calc HDL Cholesterol Lipase 23203 H Ethyl Alcohol < 0.01 SARS-CoV-2 (PCR) Negative SARS-CoV-2 Influenza Type A (PCR) Negative PCR FLU A Influenza Type B (PCR) Negative PCR FLU B Lab Acknowledgement Test Added POC Troponin I 0.02 09/04/25 09/05/25 19:07 06:00 WBC 10.89 RBC 4.12 Hgb 13.3 Hct 39.3 MCV 95 MCH 32 MCHC 34 RDW Coeff of [place] Plt Count 264 Neut % (Auto) Lymph % (Auto) [place] % (Auto) Eos % (Auto) Baso % (Auto) Neut # (Auto) Lymph # (Auto) [place] # (Auto) Eos # (Auto) Baso # (Auto) Abs Immat Gran (auto) Imm/Tot Granulo (auto) VBG pH 7.394 VBG pCO2 39 L VBG pO2 74.7 H VBG HCO3 24 Sodium 132 L Potassium 4.5 Chloride 103 Carbon Dioxide 22 Anion Gap 7 BUN 14 Creatinine 0.5 Estimated Creat Clear 33.29 Estimated GFR 94 Glucose 147 H Lactate 1.6 Calcium 8.1 L Phosphorus 4.0 Magnesium 1.7 Total Bilirubin Direct Bilirubin AST ALT Alkaline Phosphatase Troponin I C-Reactive Protein 13.2 H Total Protein Albumin Triglycerides 49 Cholesterol 163 LDL Cholesterol, Calc 81 HDL Cholesterol 72 Lipase 6091 H Ethyl Alcohol SARS-CoV-2 (PCR) Influenza Type A (PCR) Influenza Type B (PCR) Lab Acknowledgement Test Added POC Troponin I
[2025-09-05 14:40] LABS: Appearance Urine Clear (Clear)
--- NOTE | 2025-09-05 15:14 | REH.PT ---
Held eval per nursing due to patient pain, multiple tests this date and poor tolerance. will attempt tomorrow
--- NOTE | 2025-09-05 15:39 | PM.GSCN ---
History of Present Illness Consult details Date Seen: 09/05/25 Consult date: 09/05/25 Narrative: 80-year-old female admitted to the hospital with pancreatitis and I was asked by the hospitalist service to see her in consultation. Patient states that she initially developed pain in epigastrium last week. The pain was not anything that she experienced in the past. She had vomiting and nausea. Patient stated that she was seen in the hospital but I do not see records at the [facility]. Patient then presented to the [facility] yesterday with increasing abdominal pain. I personally reviewed her workup in the emergency room. She was found to have elevated lipase of 15,000, mildly elevated AST and ALT with normal alkaline phosphatase. Her WBC was 11. Patient's abdominal CT showed peripancreatic inflammation with dilated pancreatic duct and slightly distended gallbladder. The common bile duct was thought to be prominent as well. Gallbladder ultrasound was obtained that showed sludge in the gallbladder no evidence of stone, common bile duct was measured at 10 mm in the pancreatic duct was prominent and dilated. Patient was admitted to the hospital for management of pancreatitis. Patient's lipase is decreasing and today is just over 6000. Review of Systems Narrative: General: no fevers HENT: no problems swallowing CV: no shortness of breath Resp: no cough GI: No nausea, vomiting, abdominal pain : no dysuria, no increased urinary frequency, no hematuria Skin: no new rashes Musculoskeletal: no back pain Neuro: no muscle weakness Psyche: no depression, no anxiety PFSH PFSH Medical History Right ventricular enlargement ?I51.7 - Cardiomegaly (ICD-10) Coronary artery disease ?I25.10 - Atherosclerotic heart disease of [place] coronary artery without angina pectoris (ICD-10) Hydrocephalus ?G91.9 - Hydrocephalus, unspecified (ICD-10) 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 - Aneurysm of carotid artery (ICD-10) Osteoarthritis ?M19.90 - Unspecified osteoarthritis, unspecified site (ICD-10) Osteoporosis ?M81.0 - Age-related osteoporosis without current pathological fracture (ICD-10) Insomnia ?G47.00 - Insomnia, unspecified (ICD-10) Anxiety ?F41.9 - Anxiety disorder, unspecified (ICD-10) Hypothyroidism ?E03.9 - Hypothyroidism, unspecified (ICD-10) Hypertension ?I10 - Essential (primary) hypertension (ICD-10) Surgical History H/O abdominal hysterectomy ?Z90.710 - Acquired absence of both cervix and uterus (ICD-10) S/P device closure of atrial septal defect ?Z87.74 - Personal history of (corrected) congenital malformations of heart and circulatory system (ICD-10) Social History What is your current living situation?: I presently have a place to live Problems where you live: no known problems Problems where you live details: no known problems In the past 12 months, utilities in danger of being shut off: no In past 12 months, lack of transportation kept you from medical appts, meetings, work, or getting things needed for daily living: no In the past 12 mos, have been you worried that your food would run out before you had money to buy more?: never true In the past 12 mos, the food you bought just didn't last and you didn't have money to buy more?: never true Highest level of school completed/degree received: high school graduate Smoking Status: Former smoker What tobacco products do you use: cigarettes Years smoked: 1 Smoking quit date/years: >15 years ago Second hand tobacco smoke exposure: Yes How often do you have a drink containing alcohol: 4 or more times a week Alcohol type: wine Alcohol type details: half a glass of wine for dinner every night How many standard drinks containing alcohol do you have on a typical day: 1 or 2 How often do you have six or more drinks on one occasion: Never AUDIT-C Alcohol total score: 4 Non-prescribed substance use: denies use Caffeine: Yes How often does anyone, including family, friends and others, physically hurt you: never How often does anyone, including family, friends and others, insult or talk down to you: never How often does anyone, including family, friends and others, threaten you with harm: never How often does anyone, including family, friends and others, scream or curse at you: never service: No Meds Home Medications and Allergies Home Medications ?Medication ?Instructions ?Recorded ?Confirmed ?Type alendronate 35 mg tablet 35 mg PO QWEEK 12/28/24 09/04/25 History aspirin 81 mg tablet,delayed 81 mg PO DAILY 12/28/24 09/04/25 History release (Adult Low Dose Aspirin) levothyroxine 88 mcg tablet 88 mcg PO DAILY 12/28/24 09/04/25 History lisinopril 10 mg tablet 10 mg PO DAILY 12/28/24 09/04/25 History metoprolol tartrate 25 mg tablet 25 mg PO BID 12/28/24 09/04/25 History acetaminophen 500 mg tablet 500 - 1,000 mg PO Q6H PRN 09/05/25 09/05/25 History benzocaine 5 %-resorcinol 2 % 1 applic topical DAILY PRN 09/05/25 09/05/25 History topical cream (Vagisil) calcium ER 600 mg (as carb,cit)-D3 1 tab PO DAILY 09/05/25 09/05/25 History 12.5 mcg (500 unit) tablet, ext.rel (Citracal-D3 Slow Release) cholecalciferol (vitamin D3) 25 25 mcg PO DAILY 09/05/25 09/05/25 History mcg (1,000 unit) capsule cinnamon bark 500 mg capsule 500 mg PO DAILY 09/05/25 09/05/25 History (Cinnamon) cranberry 500 mg capsule 500 mg PO BID 09/05/25 09/05/25 History diphenhydramine 25 1 - 2 tab PO QHS PRN 09/05/25 09/05/25 History mg-acetaminophen 500 mg tablet (Acetadryl) ferrous sulfate 220 mg (44 mg 300 mg PO DAILY 09/05/25 09/05/25 History iron)/5 mL oral elixir fluticasone propionate 50 1 spray intranasal BID PRN 09/05/25 09/05/25 History mcg/actuation nasal spray,suspension (24 Hour Allergy Relief) lidocaine 4 % topical patch 1 patch topical DAILY 09/05/25 09/05/25 History (Aspercreme (lidocaine)) omega 4-mry-odx-fish oil 1,200 mg 1 cap PO DAILY 09/05/25 09/05/25 History (144 mg-216 mg) capsule (Fish Oil) vitamin B complex (Complex B-100 1 tab PO DAILY 09/05/25 09/05/25 History tablet,extended release) Allergies Allergy/AdvReac Type Severity Reaction Status Date / Time nitrofurantoin (From Allergy Intermediate Hives Verified 09/04/25 16:17 Macrobid) Exam Narrative: Exam Narrative: General appearance: Alert, cooperative, and in no distress Pulmonary: Chest symmetric, lungs clear bilaterally Cardiovascular Heart: Regular rate and rhythm, S1, S2, no murmurs/rubs/gallops Gastrointestinal Abdominal: soft, not distended, mildly tender to palpation in bilateral mid abdomen. No peritoneal signs. Skin: Normal skin color, texture, and turgor. No rashes or lesions. Psychiatric: Alert, cooperative, normal affect. Const: Vital Signs, click to edit/add: Vital Signs - 24 hr 09/04/25 16:20 09/04/25 16:33 09/04/25 16:34 Temperature 97.4 F L Pulse Rate Pulse Rate [Pulse Oximeter] 96 Respiratory Rate 20 17 Blood Pressure 109/59 L Blood Pressure [Le ft Arm] Blood Pressure [Ri ght Upper Arm] 109/76 Pulse Oximetry 94 Oxygen Delivery Me thod Room Air 09/04/25 17:00 09/04/25 17:01 09/04/25 17:15 Temperature Pulse Rate 97 94 95 Pulse Rate [Pulse Oximeter] Respiratory Rate 15 23 Blood Pressure 122/70 Blood Pressure [Le ft Arm] Blood Pressure [Ri ght Upper Arm] Pulse Oximetry 93 94 94 Oxygen Delivery Me thod 09/04/25 17:30 09/04/25 17:31 09/04/25 17:45 Temperature Pulse Rate 104 H 100 99 Pulse Rate [Pulse Oximeter] Respiratory Rate 22 20 Blood Pressure 133/76 Blood Pressure [Le ft Arm] Blood Pressure [Ri ght Upper Arm] Pulse Oximetry 95 95 96 Oxygen Delivery Me thod 09/04/25 18:00 09/04/25 18:01 09/04/25 18:02 Temperature Pulse Rate 105 H 102 H 107 H Pulse Rate [Pulse Oximeter] Respiratory Rate 18 20 Blood Pressure 136/74 Blood Pressure [Le ft Arm] Blood Pressure [Ri ght Upper Arm] Pulse Oximetry 95 97 95 Oxygen Delivery Me thod 09/04/25 18:15 09/04/25 18:30 09/04/25 18:32 Temperature Pulse Rate 105 H 90 100 Pulse Rate [Pulse Oximeter] Respiratory Rate 16 18 Blood Pressure 160/92 H Blood Pressure [Le ft Arm] Blood Pressure [Ri ght Upper Arm] Pulse Oximetry 95 95 98 Oxygen Delivery Me thod 09/04/25 21:05 09/04/25 23:00 09/05/25 00:35 Temperature 97.6 F 97.4 F L Pulse Rate Pulse Rate [Pulse Oximeter] 102 H 98 Respiratory Rate 16 16 16 Blood Pressure Blood Pressure [Le ft Arm] 166/91 H 156/90 H Blood Pressure [Ri ght Upper Arm] Pulse Oximetry 98 94 Oxygen Delivery Me thod Room Air Room Air 09/05/25 00:35 09/05/25 03:00 09/05/25 08:06 Temperature 98.4 F Pulse Rate Pulse Rate [Pulse Oximeter] 95 Respiratory Rate 16 16 Blood Pressure Blood Pressure [Le ft Arm] 167/102 H Blood Pressure [Ri ght Upper Arm] Pulse Oximetry 94 97 93 Oxygen Delivery Me thod Room Air Room Air Room Air 09/05/25 08:08 09/05/25 11:00 09/05/25 14:44 Temperature 98.3 F 98.3 F Pulse Rate Pulse Rate [Pulse Oximeter] 98 96 Respiratory Rate 16 18 18 Blood Pressure Blood Pressure [Le ft Arm] 159/86 H 155/88 H Blood Pressure [Ri ght Upper Arm] Pulse Oximetry 93 95 95 Oxygen Delivery Me thod Room Air Room Air Room Air 09/05/25 14:49 Temperature 98.1 F Pulse Rate Pulse Rate [Pulse Oximeter] 95 Respiratory Rate 18 Blood Pressure Blood Pressure [Le ft Arm] 164/82 H Blood Pressure [Ri ght Upper Arm] Pulse Oximetry 95 Oxygen Delivery Me thod Room Air Results Labs Labs: Abnormal lab results 09/04/25 09/05/25 09/05/25 Range/Units 16:59 06:00 14:20 WBC 11.92 H (4.50-11.00) K/uL RBC 3.97 L (4.00-5.20) m/uL Neut % (Auto) 90.0 H (42.0-72.0) % Lymph % (Auto) 3.8 L (20-44) % Neut # (Auto) 10.70 H (1.7-7.0) K/uL Lymph # (Auto) 0.50 L (0.90-2.90) K/uL VBG pCO2 39 L (40-50) mmHG VBG pO2 74.7 H (25-47) mmHG Sodium 130 L 132 L (135-149) mmol/L Glucose 141 H 147 H (60-115) mg/dL Calcium 8.1 L (8.4-10.6) mg/dL AST 81 H (12-35) U/L ALT 45 H (4-35) U/L C-Reactive Protein < 0.5 L 13.2 H (0.5-1.0) mg/dL Lipase 53581 H 6091 H (23-300) U/L Urine Protein 2+ A (Negative) Urine Blood 1+ A (Negative) Diabetes panel 09/04/25 09/05/25 Range/Units 16:59 06:00 Sodium 130 L 132 L (135-149) mmol/L Potassium 3.7 4.5 (3.6-5.1) mmol/L Chloride 98 103 (96-114) mmol/L Carbon Dioxide 24 22 (20-32) mmol/L BUN 14 14 (7-30) mg/dL Creatinine 0.6 0.5 (0.5-1.5) mg/dL Glucose 141 H 147 H (60-115) mg/dL Calcium 9.0 8.1 L (8.4-10.6) mg/dL AST 81 H (12-35) U/L ALT 45 H (4-35) U/L Alkaline Phosphatase 55 (40-150) U/L Total Protein 6.3 (6.0-8.3) g/dL Albumin 4.0 (3.3-5.0) g/dL Triglycerides 49 (40-149) mg/dL HDL Cholesterol 72 (>=50) mg/dL Calcium panel 09/04/25 09/05/25 Range/Units 16:59 06:00 Calcium 9.0 8.1 L (8.4-10.6) mg/dL Phosphorus 4.0 (2.5-4.5) mg/dL Albumin 4.0 (3.3-5.0) g/dL Pituitary panel 09/04/25 09/05/25 Range/Units 16:59 06:00 Sodium 130 L 132 L (135-149) mmol/L Potassium 3.7 4.5 (3.6-5.1) mmol/L Chloride 98 103 (96-114) mmol/L Carbon Dioxide 24 22 (20-32) mmol/L BUN 14 14 (7-30) mg/dL Creatinine 0.6 0.5 (0.5-1.5) mg/dL Glucose 141 H 147 H (60-115) mg/dL Calcium 9.0 8.1 L (8.4-10.6) mg/dL Adrenal panel 09/04/25 09/05/25 Range/Units 16:59 06:00 Sodium 130 L 132 L (135-149) mmol/L Potassium 3.7 4.5 (3.6-5.1) mmol/L Chloride 98 103 (96-114) mmol/L Carbon Dioxide 24 22 (20-32) mmol/L BUN 14 14 (7-30) mg/dL Creatinine 0.6 0.5 (0.5-1.5) mg/dL Glucose 141 H 147 H (60-115) mg/dL Calcium 9.0 8.1 L (8.4-10.6) mg/dL Total Bilirubin 1.1 (0.1-1.5) mg/dL AST 81 H (12-35) U/L ALT 45 H (4-35) U/L Alkaline Phosphatase 55 (40-150) U/L Total Protein 6.3 (6.0-8.3) g/dL Albumin 4.0 (3.3-5.0) g/dL All other labs normal. Progress Note:A&P Assessment and plan (1) Choledocholithiasis: Status: Acute Plan 80-year-old female admitted to the hospital with pancreatitis. I discussed with the patient and her daughter over the phone patient's imaging and laboratory findings. Patient was recommended to have MRCP which was completed today. MRCP showed dilated common bile duct and pancreatic duct with a filling defect in the distal duct concerning for choledocholithiasis. The gallbladder was distended with no evidence of gallstones. I recommended to have this patient transferred to the tertiary care for ERCP. This was discussed with the patient, her daughter, and the hospitalist. Patient should be on prophylactic antibiotics for now due to common bile duct obstruction and patient's age. Patient should continue being NPO.
[2025-09-05 16:06] LABS: Albumin* 3.6 g/dL (3.3-5.0)
[2025-09-05 16:09] LABS: Alanine Aminotransferase* 48 U/L (4-35); Alkaline Phosphatase* 42 U/L (40-150); Aspartate Amino Transferase* 86 U/L (12-35); Bilirubin Direct* 0.6 mg/dL (0.0-0.5); Bilirubin Total* 1.4 mg/dL (0.1-1.5); Total Protein* 6.2 g/dL (6.0-8.3)
--- NOTE | 2025-09-05 17:23 | PM.DS1 ---
DS: Providers Provider Date Seen: 09/05/25 Date of admission: 09/04/25 20:26 Primary care physician: Zee Bentley MD Admitting Clinician: Artie Shelton MD Consults: 09/04/25 21:02 Consult to Occupational Therapy [CONS] Routine Comment: Reason(s) for OT Consult:: Evaluate and Treat Any Restrictions?:: No Restrictions Consult to Physical Therapy [CONS] Routine Comment: Reason(s) for PT Consult:: Evaluate and Treat Any Restrictions?:: No Restrictions Consult to Biodiesel Process Control Technician [CONS] Routine Comment: Reason for Consult:: Discharge Planning Needs 09/05/25 00:29 Consult to Physician [CONS] Routine Comment: Consulting Provider: Rom Reynolds Has provider been notified: No Attending Physician on discharge: Artie Shelton MD Date of Discharge: 09/05/25 DS: Diagnosis Discharge Diagnosis (1) Acute biliary pancreatitis: Status: Acute Problem details: 09/05/2025 MRCP: 1. MR evidence of acute pancreatitis. 2. Dilated extrahepatic common bile duct measuring 12.8 mm in diameter with evidence of small filling defect in the distal duct indicating choledocholithiasis 3. Distended gallbladder without any gallstones - Transferred patient to [facility] for additional cares, accepted by Dr. Watson, hospitalist. (2) Choledocholithiasis: Status: Acute (3) Pancreatitis: Status: Acute Problem details: 09/04/2025: - presents with epigastric pain, nausea vomiting times less than 24 hours - differential diagnosis include alcohol associated pancreatitis, hepatobiliary associated pancreatitis, verses other. - limited ultrasound of abdomen demonstrated distended gallbladder, biliary sludge, no stones - MRCP 09/05/2025 demonstrated : 1. MR evidence of acute pancreatitis. 2. Dilated extrahepatic common bile duct measuring 12.8 mm in diameter with evidence of small filling defect in the distal duct indicating choledocholithiasis 3. Distended gallbladder without any gallstones -09/05: Patient had at low urine output overnight, 1 L normal saline bolus was ordered over 2 hours, and I increased her maintenance fluid rate to 150 mL/hour. I talked to our general surgeon Dr. Karis Reynolds who stated that this patient needs ERCP. - Dr. Watson, [facility], accepted patient for transfer on the afternoon of 09/05/2025. Patient and daughter, blanca Teixeira. (4) Coronary artery disease: Status: Acute Problem details: - Coronary CTA in August 2011 showed nonobstructive coronary disease - asymptomatic, metoprolol tartrate 25 mg p.o. b.i.d. (5) Hypertension: Status: Acute Problem details: - medically managed with lisinopril 10 mg daily and metoprolol tartrate 25 mg p.o. b.i.d. - continue the same while in hospital (6) S/P device closure of atrial septal defect: Status: Acute Problem details: Amplatzer closure September 2011 (7) Chronic hyponatremia: Status: Acute Problem details: -baseline Na low 130s -Na 128 on admission 12/28/2024 -Na 133 on 12/29/2024 (8) Age-related physical debility: Status: Acute Problem details: - PT, OT to assess and assist while in hospital (9) Weakness: Status: Acute DS: Summary Hospital Course Hospital Course: Admission history of present illness: ?80 year old woman who resides in the assisted living facility called the [facility] and presents today to the [facility] Emergency Department for assessment of progressively increasing epigastric pain and nausea and vomiting since this morning. She was in her usual state of health yesterday. No trauma, injury, fevers, rigors, diaphoresis, illness of any sort, travel, blood loss of any sort. Awoke this morning feeling well but as the morning evolved she noted the onset of epigastric discomfort that gradually progressed throughout the course the day. During the course of the day she started to have a sense of nausea and later on had couple of episodes of vomiting as well. No hematemesis. Minimal oral intake throughout the day. No diarrhea or constipation. Denies dysuria, urgency, frequency, hematuria. ?On assessment in the emergency department today she had mild epigastric discomfort with palpation. Mild to moderate elevation of AST and ALT at 81 in 45 respectively. Normal total bilirubin and direct bilirubin and alkaline phosphatase. Lipase elevated at 15,300. CT scan of abdomen and pelvis demonstrated diffuse peripancreatic inflammation with stranding and fluid. Mild prominence of main pancreatic duct. No discrete obstructing lesion. Mildly distended gallbladder. Dilatation of bile ducts with common bile duct measuring up to of 13 mm, previously 7 mm. There is smooth distal tapering of the biliary duct suggestive of underlying pancreatic parenchymal edema. No obvious gallstones or sludge noted on the CT scan. ?Patient acknowledges she consumes about 1/2 glass of wine at bedtime. Does not consume any additional alcohol beyond this. Denies alcohol withdrawal symptoms. No prior history of gallstones or gallbladder surgery. Denies medical therapy for hyperlipidemia or hypertriglyceridemia. Known to have atherosclerotic calcifications of the aorta and coronaries.? Abdominal ultrasound demonstrated distended gallbladder, biliary sludge, no stones. MRCP obtained on date of discharge 09/05/2025 five, demonstrated the following: Significant peripancreatic inflammatory changes indicating acute pancreatitis. No obvious edema within the pancreatic substance. Pancreatic duct measures 3.3 mm in diameter. Dilated extrahepatic common bile duct measuring 12 x 8 mm in diameter with a small filling defect indicating choledocholithiasis. Distended gallbladder without any demonstrable gallstones. No evidence of dilatation of the intrahepatic biliary duct system . Duodenal diverticulum. Small right-sided pleural effusion. IMPRESSION: 1. MR evidence of acute pancreatitis. 2. Dilated extrahepatic common bile duct measuring 12.8 mm in diameter with evidence of small filling defect in the distal duct indicating choledocholithiasis 3. Distended gallbladder without any gallstones 4. Duodenal diverticulum. I spoke with Dr. Watson, hospitalist, [facility], who accepts the patient in transfer for additional evaluation and interventions as warranted. Patient agreeable. Daughter, Lluvia, notified and agreeable. Status at Discharge Functional status at discharge: uses cane/walker Overall status at discharge: patient is not back to baseline Time Spent with Patient Time attestation: Total time spent providing and/or coordinating discharge services: Time spent: Greater than 30 minutes Exam Narrative: Exam Narrative: GENERAL: Comfortable, no acute distress. HEAD AND NECK: Atraumatic, normocephalic CARDIOVASCULAR: RRR. Normal S1, S2. No murmurs. RESPIRATORY: Clear to auscultation B/L. Good air entry B/L. No wheezes or rhonchi. GASTROINTESTINAL: Not distended, epigastrium tender to palpation. No rigidity. NEUROLOGY: Alert, awake, oriented X 3. Normal speech. PSYCH: Normal mood, normal affect. Const: Vital Signs, click to edit/add: Vital Signs - 24 hr 09/04/25 17:30 09/04/25 17:31 09/04/25 17:45 Temperature Pulse Rate 104 H 100 99 Pulse Rate [Pulse Oximeter] Respiratory Rate 22 20 Blood Pressure 133/76 Blood Pressure [Le ft Arm] Pulse Oximetry 95 95 96 Oxygen Delivery Me thod 09/04/25 18:00 09/04/25 18:01 09/04/25 18:02 Temperature Pulse Rate 105 H 102 H 107 H Pulse Rate [Pulse Oximeter] Respiratory Rate 18 20 Blood Pressure 136/74 Blood Pressure [Le ft Arm] Pulse Oximetry 95 97 95 Oxygen Delivery Me thod 09/04/25 18:15 09/04/25 18:30 09/04/25 18:32 Temperature Pulse Rate 105 H 90 100 Pulse Rate [Pulse Oximeter] Respiratory Rate 16 18 Blood Pressure 160/92 H Blood Pressure [Le ft Arm] Pulse Oximetry 95 95 98 Oxygen Delivery Me od 09/04/25 21:05 09/04/25 23:00 09/05/25 00:35 Temperature 97.6 F 97.4 F L Pulse Rate Pulse Rate [Pulse Oximeter] 102 H 98 Respiratory Rate 16 16 16 Blood Pressure Blood Pressure [Le ft Arm] 166/91 H 156/90 H Pulse Oximetry 98 94 Oxygen Delivery Me od Room Air Room Air 09/05/25 00:35 09/05/25 03:00 09/05/25 08:06 Temperature 98.4 F Pulse Rate Pulse Rate [Pulse Oximeter] 95 Respiratory Rate 16 16 Blood Pressure Blood Pressure [Le ft Arm] 167/102 H Pulse Oximetry 94 97 93 Oxygen Delivery Me [facility] Room Air Room Air Room Air 09/05/25 08:08 09/05/25 11:00 09/05/25 14:44 Temperature 98.3 F 98.3 F Pulse Rate Pulse Rate [Pulse Oximeter] 98 96 Respiratory Rate 16 18 18 Blood Pressure Blood Pressure [Le ft Arm] 159/86 H 155/88 H Pulse Oximetry 93 95 95 Oxygen Delivery Me od Room Air Room Air Room Air 09/05/25 14:49 Temperature 98.1 F Pulse Rate Pulse Rate [Pulse Oximeter] 95 Respiratory Rate 18 Blood Pressure Blood Pressure [Le ft Arm] 164/82 H Pulse Oximetry 95 Oxygen Delivery Me od Room Air DS: Data Data Completed and Pending Labs on day of discharge: Labs from last 24 hours 09/05/25 09/05/25 09/04/25 14:20 06:00 19:07 WBC 10.89 RBC 4.12 Hgb 13.3 Hct 39.3 MCV 95 MCH 32 MCHC 34 RDW Coeff of Juliann Plt Count 264 Neut % (Auto) Lymph % (Auto) Jerome % (Auto) Eos % (Auto) Baso % (Auto) Neut # (Auto) Lymph # (Auto) Jerome # (Auto) Eos # (Auto) Baso # (Auto) Abs Immat Gran (auto) Imm/Tot Granulo (auto) VBG pH 7.394 VBG pCO2 39 L VBG pO2 74.7 H VBG HCO3 24 Sodium 132 L Potassium 4.5 Chloride 103 Carbon Dioxide 22 Anion Gap 7 BUN 14 Creatinine 0.5 Estimated Creat Clear 33.29 Estimated GFR 94 Glucose 147 H Lactate 1.6 Calcium 8.1 L Phosphorus 4.0 Magnesium 1.7 Total Bilirubin 1.4 Direct Bilirubin 0.6 H AST 86 H ALT 48 H Alkaline Phosphatase 42 Troponin I C-Reactive Protein 13.2 H Total Protein 6.2 Albumin 3.6 Triglycerides 49 Cholesterol 163 LDL Cholesterol, Calc 81 HDL Cholesterol 72 Lipase 6091 H Urine Color Dark yellow Urine Appearance Clear Urine pH 5.5 Ur Specific [place] 1.025 Urine Protein 2+ A Urine Glucose (UA) Negative Urine Ketones Negative Urine Blood 1+ A Urine Nitrite Negative Urine Bilirubin Negative Urine Urobilinogen 0.2 Ur Leukocyte Esterase Negative Urine RBC 0-2 Urine WBC 0-2 Ur Squamous Epith Cells Few Urine Bacteria None Ethyl Alcohol SARS-CoV-2 (PCR) Influenza Type A (PCR) Influenza Type B (PCR) Lab Acknowledgement Test Added Test Added 09/04/25 09/04/25 09/04/25 18:12 17:00 16:59 WBC 11.92 H RBC 3.97 L Hgb 12.8 Hct 38.2 MCV 96 MCH 32 MCHC 34 RDW Coeff of Juliann 15.3 Plt Count 319 Neut % (Auto) 90.0 H Lymph % (Auto) 3.8 L Jerome % (Auto) 6.0 Eos % (Auto) 0.0 Baso % (Auto) 0.0 Neut # (Auto) 10.70 H Lymph # (Auto) 0.50 L Jerome # (Auto) 0.70 Eos # (Auto) 0.00 Baso # (Auto) 0.00 Abs Immat Gran (auto) 0.00 Imm/Tot Granulo (auto) 0.2 VBG pH VBG pCO2 VBG pO2 VBG HCO3 Sodium 130 L Potassium 3.7 Chloride 98 Carbon Dioxide 24 Anion Gap 8 BUN 14 Creatinine 0.6 Estimated Creat Clear Estimated GFR 90 Glucose 141 H Lactate Calcium 9.0 Phosphorus Magnesium Total Bilirubin 1.1 Direct Bilirubin 0.5 AST 81 H ALT 45 H Alkaline Phosphatase 55 Troponin I < 0.01 C-Reactive Protein < 0.5 L Total Protein 6.3 Albumin 4.0 Triglycerides Cholesterol LDL Cholesterol, Calc HDL Cholesterol Lipase 98553 H Urine Color Urine Appearance Urine pH Ur Specific [place] Urine Protein Urine Glucose (UA) Urine Ketones Urine Blood Urine Nitrite Urine Bilirubin Urine Urobilinogen Ur Leukocyte Esterase Urine RBC Urine WBC Ur Squamous Epith Cells Urine Bacteria Ethyl Alcohol < 0.01 SARS-CoV-2 (PCR) Negative SARS-CoV-2 Influenza Type A (PCR) Negative PCR FLU A Influenza Type B (PCR) Negative PCR FLU B Lab Acknowledgement Test Added Imaging CT scan - abdomen: Attestation: I have reviewed the pertinent imaging results. Radiologist's impression: FINDINGS: Lower chest: Dependent subsegmental atelectasis. Motion. Atherosclerotic and coronary artery calcifications. Atrial septal occlusion device. Partially fluid-filled esophagus. ABDOMEN: Liver: Normal enhancement. No focal suspicious hepatic lesions. Gallbladder and biliary: Mildly distended gallbladder. Dilatation of the bile ducts with common bile duct measuring up to 13 millimeters, previously 7 millimeters. Spleen: Normal size and enhancement. Pancreas: Diffuse peripancreatic inflammatory stranding/fluid. Mild prominence of the main pancreatic duct. No discrete obstructing lesion. Likely partial annular pancreas. No areas of parenchymal non enhancement. Adrenal glands: Normal adrenal glands. Kidneys and ureters: Normal enhancement. No radio-opaque calculi. No hydroureteronephrosis. Subcentimeter hypodensities are too small to characterize however statistically represent cysts. GI tract: Small hiatal hernia. Stomach is partially distended with fluid. Normal caliber small and large bowel loops. Normal appendix. Colonic diverticulosis without diverticulitis. Vascular structures: Normal caliber aorta with atherosclerotic calcifications. Lymph nodes: No lymphadenopathy in the abdomen or pelvis by size criteria. Peritoneum: Free fluid tracking inferiorly along the pericolic gutters into the pelvis. No acute pancreatic fluid collections. PELVIS: Genitourinary system: Normal urinary bladder. Hysterectomy. SKELETAL STRUCTURES AND SOFT TISSUES: No suspicious lytic or blastic lesions. IMPRESSION: 1. Acute pancreatitis. No acute pancreatic fluid collections. No parenchymal non enhancement. 2. New gallbladder distention and biliary ductal dilatation with smooth distal tapering likely secondary to underlying pancreatic parenchymal edema. US - abdomen: Radiologist's impression: FINDINGS: Gallbladder: Mildly distended gallbladder with biliary sludge. No stones. Normal wall thickness. No pericholecystic fluid. Negative sonographic Flower`s sign. Common bile duct: 10 mm. IMPRESSION: Enlarged common bile duct, measuring 10 millimeters. No choledocholithiasis in the visualized common bile duct. Distal obstructing stone not excluded. Recommend correlation with LFTs, including direct bilirubin. If there is persistent clinical concern for biliary obstruction, consider MRCP. Mildly distended gallbladder with biliary sludge. No stones. MRI of abdomen: Radiologist's impression: Findings: Significant peripancreatic inflammatory changes indicating acute pancreatitis. No obvious edema within the pancreatic substance. Pancreatic duct measures 3.3 mm in diameter. Dilated extrahepatic common bile duct measuring 12 x 8 mm in diameter with a small filling defect indicating choledocholithiasis. Distended gallbladder without any demonstrable gallstones. No evidence of dilatation of the intrahepatic biliary duct system . Duodenal diverticulum. Small right-sided pleural effusion. IMPRESSION: 1. MR evidence of acute pancreatitis. 2. Dilated extrahepatic common bile duct measuring 12.8 mm in diameter with evidence of small filling defect in the distal duct indicating choledocholithiasis 3. Distended gallbladder without any gallstones 4. Duodenal diverticulum. Discharge Plan Discharge Disposition: [facility] Discharge Location: [facility] Date of Admission: 09/04/25 20:26 Attending Provider on Discharge: Artie Shelton Primary Care Provider: Zee Bentley Condition: Stable Discharge Orders: Transfer of Care to Other Hospital (ORDER); Ordered 09/05/25 Ordered By: Artie Shelton Oxygen: No Urinary Catheter: Yes Drips/Lines: Normal Saline 150 ml/hr IV Services not available here: Gastroenterology, including endoscopic services, specifically ERCP.
--- NOTE | 2025-09-05 17:55 | PC.NURSE ---
Transfer - Pt alert, cooperative and pleasant. Oriented, but forgetful and reports feeling anxious as evidenced by repetitive questions and need for frequent reassurance. Able to stand/pivot to bedside commode with x2 assistance and walker/gait belt. Pt reported pain in epigastric area as 10/10 during majority of shift that increased with movement. By end of shift pt was reporting pain at rest as 7-8/10 and stated this was tolerable. Given medication per MAR with pt verbalizing no change in pain level, however RN observed change in pt behavior indicating improved comfort. Pt reported experiencing nausea, RN witnessed instances of both retching and bile emesis. Given medication per MAR. Pt transferred to [facility] via non emergent EMS at approximately 1750. RN provided nurse to nurse to Michelle [phone] and update to pt daughter Lluvia.
== END 2025-09-05 17:50 | disposition short-term general hospital (02) | DRG 439 ==
LOC: ED 20:03 → MEDSURG 20:26
PROVIDERS: Student in an Organized Health Care Education/Training Program; Admitting Provider Internal Medicine; Emergency Provider Family Medicine; PCP Family Medicine; Visit Provider Internal Medicine
DX: K85.10 Biliary acute pancreatitis without necrosis or infection (principal); E87.1 Hypo-osmolality and hyponatremia; K80.50 Calculus of bile duct without cholangitis or cholecystitis without obstruction; I25.10 Atherosclerotic heart disease of native coronary artery without angina pectoris; F41.9 Anxiety disorder, unspecified; I11.9 Hypertensive heart disease without heart failure; I72.0 Aneurysm of carotid artery; E03.9 Hypothyroidism, unspecified; M81.0 Age-related osteoporosis without current pathological fracture; Z79.82 Long term (current) use of aspirin
CPT/HCPCS: 36415; 51798; 71045; 74177; 74181; 76705; 80048; 80061; 80076; 81001; 81003; 82077; 82803; 83605; 83690; 83735; 84100; 84484; 85025; 85027; 86140; 87081; 87636; 99284; 99285; A9270; J0696; J1650; J1836; J1885; J2270; J2405; J7030; Q9967

== ENCOUNTER 2025-09-05 17:30 | Outpatient (CLI) | payer MEDICARE, BC, SELFPAY | END 2025-09-05 17:31 | disposition home or self-care (01) | LOC: AMB 09-08 17:02 | PROVIDERS: PCP Family Medicine; Visit Provider Family Medicine | DX: K85.90 Acute pancreatitis without necrosis or infection, unspecified (principal); R10.9 Unspecified abdominal pain | CPT/HCPCS: A0425; A0429 ==